=== PATIENT | male | born 1985 | race Caucasian/White ===

== ENCOUNTER 2017-10-24 09:36 | Emergency (ER) | payer MEDICARE, MEDICAID ==
[~2017-10-24] VITALS: Ht 175.3 cm; Wt 64.4 kg
[~2017-10-24 09:36] MED LIST: ACHD5005 PO; AGM875T PO; CYCL10TA9 PO; DESV50TA; DIPH1TAB; DOXY-13 PO; DOXY150T9 PO; HYDR1CAP2 PO; HYDR1TAB PO; HYOS0.1217 PO; IBP600T1 PO; INSHRV; INSR1U SC; INSU100V8 SQ; LEVE1U SQ; LEVO750T24 GT; NAPR-243 PO; OLN10T; PROM25SU10 PR; PROM6.25; SULF1TAB38 PO
[2017-10-24] MEDS ORDERED: IBUPROFEN 800 MG (MOTRIN) TAB PO STA (09:41)
--- OUTSIDE RECORDS SUMMARY | 2017-10-24 09:42 | XMS REPORT | Continuity of Care Document ---
Author Author [facility] Address Unknown Phone Unavailable Allergies Active Description Code Type Severity Reaction Onset Reported/Identified Relationship to Patient Clinical Status Yes STEROID STEROID Unknown 'CHEST FELT TIG 11/28/2014 Medications There is no data. Problems Date Dx Coded Attending Type Code Diagnosis Diagnosed By 11/28/2007 SHALOM DC APRN R 250.03 DIABETES 1 UNCONTROLLED 11/28/2007 SHALOM DC APRN R 844.9 SPRAIN/STRAIN KNEE/LEG 01/10/2008 SHALOM DC APRN R 250.02 DIABETES II UNCONTROLLED 04/09/2008 SHALOM DC APRN R 785.6 LYMPH NODES ENLARGEMENT 05/06/2008 SHALOM DC APRN R 462 PHARYNGITIS ACUTE 05/06/2008 SHALOM DC APRN R 786.2 COUGH 07/15/2008 HALEIGH DC APRNIA R 296.99 OTHER SPECIFIED EPISODIC MOOD DISORDER 10/26/2008 SHALOM DC APRN R 784.0 headache 10/27/2008 HALEIGH DC APRNIA R 296.33 MO DEPRESSIVE RECURRENT SEVERE W/O PSYCHOTIC BEHAVIOR 12/08/2008 SHALOM DC APRN R V58.69 MEDICATION HIGH RISK 01/12/2009 HALEIGH DC APRNIA R 296.90 MO MOOD DIS NOS 01/28/2009 HALEIGH DC APRNIA R 296.30 MO DEPRESSIVE RECURRENT UNSPECIFIED 03/17/2009 SHALOM DC APRN R 607.84 IMPOTENCE OF ORGANIC ORIGIN 01/14/2010 SHALOM DC APRN R 692.6 CONTACT DERMATITIS AND OTHER ECZEMA, DUE TO PLANTS [EXCEPT FOOD] 01/18/2010 Ot 923.3 01/18/2010 Ot 959.5 01/18/2010 Ot E000.8 01/18/2010 Ot E824.9 01/18/2010 Ot E849.0 02/23/2010 SHALOM DC APRN R V70.0 GENERAL MEDICAL EXAM, ROUTINE, AT [facility] 06/16/2010 Ot 724.2 06/16/2010 Ot 784.0 02/25/2011 Ot 682.3 03/03/2011 Ot 682.3 03/03/2011 Ot 709.9 04/07/2011 Ot 250.01 04/07/2011 Ot 682.2 04/07/2011 Ot 709.9 04/04/2012 Ot 250.13 04/04/2012 Ot V15.81 04/04/2012 Ot V58.66 04/04/2012 Ot V58.67 10/08/2012 DARRELL GUZMAN MD Ot 682.4 10/08/2012 DARRELL GUZMAN MD Ot 882.1 10/08/2012 DARRELL GUZMAN MD Ot E000.8 10/08/2012 DARRELL GUZMAN MD Ot E849.8 10/08/2012 DARRELL GUZMAN MD Ot E888.0 10/08/2012 DARRELL GUZMAN MD Ot E920.8 10/14/2012 GELLENDER DO, DIONNE Palacios Ot 250.00 10/14/2012 GELLENDER DO, DIONNE Palacios Ot 682.4 10/14/2012 GELLENDER DO, DIONNE Palacios Ot 908.9 10/14/2012 GELLENDER DO, DIONNE Palacios Ot E929.8 11/30/2014 GELLENDER DO, DIONNE Palacios Ot 250.13 11/30/2014 GELLENDER DO, DIONNE Palacios Ot 530.81 11/30/2014 GELLENDER DO, DIONNE Palacios Ot 584.9 11/30/2014 GELLENDER DO, DIONNE Palacios Ot V15.81 11/30/2014 GELLENDER DO, DIONNE Palacios Ot V58.67 02/05/2016 DARRELL GUZMAN MD Ot 682.4 CELLULITIS OF HAND 02/05/2016 DARRELL GUZMAN MD Ot 882.1 OPN WOUND HAND-COMPLICAT 02/05/2016 DARRELL GUZMAN MD Ot E000.8 OTHER EXTERNAL CAUSE STATUS 02/05/2016 DARRELL GUZMAN MD Ot E849.[address] NEC 02/05/2016 DARRELL GUZMAN MD Ot E888.0 FALL STRIKING SHARP OBJECT 02/05/2016 DARRELL GUZMAN MD Ot E920.8 ACC-CUTTING INSTRUM NEC 07/05/2016 ADRRELL GUZMAN MD Ot 682.4 CELLULITIS OF HAND 07/05/2016 DARRELL GUZMAN MD Ot 882.1 OPN WOUND HAND-COMPLICAT 07/05/2016 DARRELL GUZMAN MD Ot E000.8 OTHER EXTERNAL CAUSE STATUS 07/05/2016 DARRELL GUZMAN MD Ot E849.[address] NEC 07/05/2016 DARRELL GUZMAN MD Ot E888.0 FALL STRIKING SHARP OBJECT 07/05/2016 DARRELL GUZMAN MD Ot E920.8 ACC-CUTTING INSTRUM NEC 09/04/2016 DARRELL GUZMAN MD Ot 682.4 CELLULITIS OF HAND 09/04/2016 DARRELL GUZMAN MD Ot 882.1 OPN WOUND HAND-COMPLICAT 09/04/2016 DARRELL GUZMAN MD Ot E000.8 OTHER EXTERNAL CAUSE STATUS 09/04/2016 DARRELL GUZMAN MD Ot E849.[address] NEC 09/04/2016 DARRELL GUZMAN MD Ot E888.0 FALL STRIKING SHARP OBJECT 09/04/2016 DARRELL GUZMAN MD Ot E920.8 ACC-CUTTING INSTRUM NEC 10/05/2016 DARRELL GUZMAN MD Ot 682.4 CELLULITIS OF HAND 10/05/2016 DARRELL GUZMAN MD Ot 882.1 OPN WOUND HAND-COMPLICAT 10/05/2016 DARRELL GUZMAN MD Ot E000.8 OTHER EXTERNAL CAUSE STATUS 10/05/2016 DARRELL GUZMAN MD Ot E849.[address] NEC 10/05/2016 DARRELL GUZMAN MD Ot E888.0 FALL STRIKING SHARP OBJECT 10/05/2016 DARRELL GUZMAN MD Ot E920.8 ACC-CUTTING INSTRUM NEC Procedures Code [place] [address] A1C 06/04/2008 Results There is no data. Encounters ACCT No. Visit Date/Time Discharge Status Pt. Type Provider Facility Loc./Unit Complaint [id number] 12/04/2012 12:09:00 12/04/2012 23:59:59 CLS Outpatient SHALOM DC APRN [id number] 11/28/2014 23:33:00 11/30/2014 15:47:00 DIS Inpatient MITZY ELLIS DIONNE Palacios [facility] SURGICAL [id number] 10/11/2012 15:10:00 10/14/2012 11:35:00 DIS Inpatient MITZY ELLIS DIONNE Philip [facility] SURGICAL [id number] 10/08/2012 08:52:00 10/08/2012 09:45:00 DIS Outpatient DARRELL GUZMAN MD [facility] ER LEFT HAND INJURY [id number] 04/03/2012 22:00:00 Document Registration [id number] 04/07/2011 10:26:00 Document Registration [id number] 03/03/2011 17:41:00 Document Registration [id number] 02/25/2011 21:55:00 Document Registration [id number] 06/16/2010 16:56:00 Document Registration [id number] 01/18/2010 16:21:00 Document Registration [email or web address] 11/29/2014 02:19:39 ACT Document Registration
--- OUTSIDE RECORDS SUMMARY | 2017-10-24 09:42 | XMS REPORT | Clinical Summary ---
Author Author [facility] Organization [facility] Address Unknown Phone Unavailable Care Team Providers Care Incoming Freight Clerk Name Role Phone PCP Unavailable Source Comments Some departments are not documenting in the electronic medical record. If you do not see the information that you expected, contact Release of Information in the Health Information Management department at [phone] for further assistance in locating additional records.[facility] Allergies Not on File Current Medications Not on file Active Problems Not on file Encounters Date Type Specialty Care Team Description 07/26/2017 Pharmacy Visit from Last 3 Months Social History Tobacco Use Types Packs/Day Years Used Date Never Assessed Sex Assigned at Date Recorded Not on file Last Filed Vital Signs Not on file Plan of Treatment Health Maintenance Due Date Last Done Comments PHYSICAL (COMPREHENSIVE) 08/04/1991 EXAM PERTUSSIS VACCINE 08/04/1995 HIV SCREENING 08/04/1999 TETANUS VACCINE 2001 INFLUENZA VACCINE 02/04/2018 Results Not on filefrom Last 3 Months
--- OUTSIDE RECORDS SUMMARY | 2017-10-24 09:42 | XMS REPORT | Encounter Summary ---
Author Author [facility] Organization [facility] Address Unknown Phone Unavailable Care Team Providers Care Manager Of Creative Services Name Role Phone PCP Unavailable Encounter Details Date Type Department Care Team Description 07/26/2017 Pharmacy Visit [facility] [address] [place] [address] Social History Tobacco Use Types Packs/Day Years Used Date Never Assessed Sex Assigned at Date Recorded Not on file as of this encounter Plan of Treatment Not on fileas of this encounter Visit Diagnoses Not on filein this encounter
--- NOTE | 2017-10-24 09:57 | ED General ---
General Chief Complaint: Glucose Problems Stated Complaint: HYPOGLYCEMIA Source of Information: Patient Exam Limitations: No Limitations History of Present Illness Date Seen by Provider: Oct 24, 2017 Time Seen by Provider: 09:40 Initial Comments Here by EMS with report of hypoglycemia. He was unresponsive this morning and EMS was called. They found his initial blood sugar to be too low to read. They did establish IV access and gave 1 amp of D50. He's steadily improved since and currently has no complaints except for a mild headache. Reports taking his Lantus and insulin as directed. He ate late last night and then previous Lantus. He did not have any snacks afterwards and went to bed. Does not usually have blood sugar problems that are low in fact usually runs quite high. Overall doing better now. Timing/Duration: 1-3 Hours Severity: Moderate Associated Systoms: No Chest Pain, No Cough, No Fever/Chills, No Nausea/ Vomiting, No Shortness of Air, No Weakness Allergies and Home Medications Allergies Uncoded Allergies: STEROID (Adverse Reaction, Unknown, 'CHEST FELT TIGHT', 11/28/14) Home Medications Insulin Determir 1 Unit/0.01 Ml Soln, 30 UNIT SQ HS Prescribed by: SCOTT CISNEROS on 11/30/14 142 Insulin Human Regular 1 Unit/0.01 Ml Soln, 0 UNIT SC ACHS Prescribed by: SCOTT CISNEROS on 11/30/14 142 Patient Home Medication List Home Medication List Reviewed: Yes Review of Systems Constitutional: see HPI; No chills, No fever EENTM: no symptoms reported Respiratory: no symptoms reported Cardiovascular: no symptoms reported Gastrointestinal: No abdominal pain, No nausea, No vomiting Genitourinary: no symptoms reported Psychiatric/Neurological: See HPI, Headache All Other Systems Reviewed Negative Unless Noted: Yes Past Jdqanaj-Cgxlqw-Gzijxh Hx Past Med/Social Hx: Reviewed Nursing Past Med/Soc Hx Patient Social History Alcohol Use: Occasionally Uses Alcohol Beverage of Choice: Beer Recreational Drug Use: No 2nd Hand Smoke Exposure: No Immunizations Up To Date Date of Influenza Vaccine: Jan 06, 2012 Past Medical History Surgeries: Yes Orthopedic Neurological: No Reproductive Disorders: No Gastrointestinal: No Endocrine: Yes Diabetes, Insulin dep Adverse Reaction/Blood Tranf: No Family Medical History Reviewed Nursing Family Hx No Pertinent Family Hx Physical Exam Vital Signs Capillary Refill : General Appearance: No Apparent Distress, WD/WN HEENT: PERRL/EOMI, Pharynx Normal Neck: Non Tender, Supple Respiratory: Lungs Clear, Normal Breath Sounds Cardiovascular: Regular Rate, Rhythm, No Murmur Gastrointestinal: Non Tender, Soft Back: Normal Inspection, No CVA Tenderness, No Vertebral Tenderness Extremity: Normal Range of Motion, Non Tender Neurologic/Psychiatric: Alert, Oriented x3 Skin: Normal Color, Warm/Dry Progress/Results/Core Measures Suspected Sepsis SIRS Temperature: Pulse: Respiratory Rate: Blood Pressure / Mean: Results/Orders My Orders Orders - DARRELL GUZMAN MD Ibuprofen Tablet (Motrin Tablet) (10/24/17 09:41) General/Regular (10/24/17 Breakfast) Vital Signs/I&O Capillary Refill : Progress Note : Progress Note Seen and evaluated. Regular diet ordered. Ibuprofen 800 mg by mouth given. Blood sugar 153 here. Monitor patient. 1025: Patient noted much better and has finished full breakfast and 2 juices. We will recheck blood sugar. If stable, patient will be discharged home. 1045: Blood sugar 149. Discharge home with return precautions. Patient verbalize understanding instructions and agreement with plan. Departure Impression Primary Impression: Hypoglycemia associated with diabetes Disposition: 01 HOME, SELF-CARE Condition: Improved Departure-Patient Inst. Decision time for Depature: 10:28 Referrals: DIONNE FORRESTER DO (PCP/Family) Primary Care Physician Patient Instructions: HYPOGLYCEMIA Add. Discharge Instructions: All discharge instructions reviewed with patient and/or family. Voiced understanding. Take medications as previously prescribed. Eating normal diet. Return for worse pain, fever, vomiting, weakness, breathing problems or other concerns as needed. You should monitor your blood sugar several times today and then as previously prescribed. DARRELL GUZMAN MD Oct 24, 2017 09:57
[2017-10-24 10:51] VITALS: BP 134/104
== END 2017-10-24 10:51 | disposition home or self-care (01) ==
LOC: EDUNIT# 09:36 → ER 09:38
DX: E11.649 Type 2 diabetes mellitus with hypoglycemia without coma (principal); Z88.8 Allergy status to other drugs, medicaments and biological substances; Z98.890 Other specified postprocedural states
CPT/HCPCS: 82962; 99283

== ENCOUNTER 2018-01-22 09:53 | Emergency (ER) | payer MEDICARE, MEDICAID ==
[~2018-01-22] VITALS: Ht 175.3 cm; Wt 68.0 kg
--- NOTE | 2018-01-22 11:06 | ED Upper Extremity ---
General Chief Complaint: Upper Extremity Stated Complaint: R HAND SWELLING Nursing Triage Note: ARRIVED VIA AMB TO TRIAGE. COMPLAINS OF RIGHT HAND PAIN/SWELLING AFTER PUNCHING A TRUCK LAST NIGHT. Nursing Sepsis Screen: No Definite Risk Source: patient Exam Limitations: no limitations History of Present Illness Date Seen by Provider: Jan 22, 2018 Time Seen by Provider: 11:00 Initial Comments The patient is a 32-year-old male who presents to the emergency room with complaints of right hand, right wrist, pain and swelling after punching a truck last night around 1999. He does have abrasions to his third and fourth knuckles and ecchymosis to the dorsal surface of the right hand. Onset: other (last night) Pain/Injury Location: right wrist, right hand Method of Injury: direct blow (punched a truck door) Allergies and Home Medications Allergies Uncoded Allergies: STEROID (Adverse Reaction, Unknown, 'CHEST FELT TIGHT', 11/28/14) Home Medications Hydrocodone Bit/Acetaminophen 1 Tab Tab, 1-2 EACH PO Q6H PRN for PAIN-MODERATE Prescribed by: SUKHWINDER VEE on 01/22/18 1213 Patient Home Medication List Home Medication List Reviewed: Yes Review of Systems Constitutional: see HPI; No chills, No fever Musculoskeletal: see HPI, joint pain All Other Systems Reviewed Negative Unless Noted: Yes Past Gaxysoh-Ryhomv-Mmqspw Hx Past Med/Social Hx: Reviewed Nursing Past Med/Soc Hx Patient Social History Alcohol Use: Denies Use Alcohol Beverage of Choice: Beer Recreational Drug Use: No 2nd Hand Smoke Exposure: No Recent Foreign Travel: No Contact w/Someone Who Travel: No Recent Infectious Disease Expo: No Recent Hopitalizations: Yes Immunizations Up To Date Tetanus Booster (TDap): Less than 5yrs Date of Influenza Vaccine: Jan 06, 2012 Past Medical History Surgeries: Yes Orthopedic Respiratory: No Cardiac: No Neurological: No Reproductive Disorders: No Gastrointestinal: No Musculoskeletal: No Endocrine: Yes Diabetes, Insulin dep Cancer: No Psychosocial: No Integumentary: No Blood Disorders: No Adverse Reaction/Blood Tranf: No Family Medical History Reviewed Nursing Family Hx No Pertinent Family Hx Physical Exam Vital Signs Vital Signs - First Documented 01/22/18 10:09 Temp 98.0 Pulse 104 Resp 16 B/P (MAP) 169/105 (126) Pulse Ox 98 O2 Delivery Room Air Capillary Refill : Less Than 3 Seconds Height, Weight, BMI Height: 5'9.00" Weight: 150lbs. 0.0oz. [id number]; 20.67 BMI Method:Stated General Appearance: WD/WN, no apparent distress Cardiovascular: normal peripheral pulses, regular rate, rhythm, no edema, no gallop, no JVD, no murmur Respiratory: chest non-tender, lungs clear, normal breath sounds, no respiratory distress, no accessory muscle use Wrist: Yes normal inspection, Yes soft tissue tenderness (right wrist) Hand: Right, ecchymosis (to dorsal surface. ), soft tissue tenderness, swelling Neurologic/Tendon: normal sensation, normal motor functions, normal tendon functions, responds to pain, no evidence tendon injury Neurologic/Psychiatric: alert, normal mood/affect, oriented x 3 Skin: normal color, warm/dry Procedures/Interventions Splinting and Joint Reduction : Hand-Made Type: fiberglass (ulnar guttar) Splint Application: Short Arm Progress/Results/Core Measures Results/Orders My Orders Orders - SUKHWINDER VEE Hand, Right, 3 Views (01/22/18 10:54) Wrist, Right, 3 Views Or More (01/22/18 10:59) Hydrocodone/Apap 7.5/325 Tab (Lortab 7. (01/22/18 12:00) Medications Given in ED Vital Signs/I&O Blood Pressure Mean: 126 Progress Progress Note : Time: 11:47 Progress Note Spoke to Dr. Robb at this time. He recommends placing the patient an ulnar gutter splint and having him follow-up in his office within 1 week. I informed the patient of his x-ray findings. He was was placed in above splint. He agrees with plan of care, plans for discharge, return precautions were given. Diagnostic Imaging Diagonstic Imaging: Xray Plain Films/CT/US/NM/MRI: hand, other (wrist) Comments NAME: SUSHMA OZUNA [facility] REC#: [id number] PT STATUS: REG ER : 1985 PHYSICIAN: SUKHWINDER VEE ADMIT DATE: 01/22/18/ER Draft Date of Exam:01/22/18 HAND, RIGHT, 3 VIEWS INDICATION: Right hand pain and swelling. Time of exam: 11:03 AM 3 views of the right hand were obtained. There appear to be fractures involving the base of the fourth and fifth metacarpals. There is volar angulation of the distal fracture fragments. There may be some slight dorsal subluxation of the proximal fourth and fifth metacarpals in relation to the carpus. Carpal bones are intact. Phalanges are intact. No other abnormalities are seen. IMPRESSION: Fractures involving the base of the proximal fourth and fifth metacarpals with questionable dorsal subluxation. There is overlying soft tissue swelling. Dictated on workstation # [id number] Dict: 01/22/18 1126 Trans: 01/22/18 1129 [facility] [id number] Interpreted by: JAYNA MCLEOD MD Electronically signed by: Reviewed: Reviewed by Me Departure Impression Primary Impression: Boxesme fracture Disposition: 01 HOME, SELF-CARE Condition: Stable/Unchanged Departure-Patient Inst. Decision time for Depature: 12:12 Referrals: DIONNE FORRESTER DO (PCP/Family) Primary Care Physician MIRIAM ROBB MD Patient Instructions: Boxer's Fracture (DC) Add. Discharge Instructions: Take medications as directed. Wear the splint at all times. You may use ice to the sore areas at 20 minute intervals. Follow-up with Dr. Robb within 1 week for recheck. Call for an appointment time today. Return back to the emergency room for any numbness, tingling, increased swelling to the extremity or for any worsening symptoms or concerns as needed. Follow-up with Dr. Forrester for recheck in one week. All discharge instructions reviewed with patient and/or family. Voiced understanding. Scripts Hydrocodone Bit/Acetaminophen (Hydrocodone/Acetaminophen 5/325mg Tablet) 1 Tab Tab 1-2 EACH PO Q6H PRN for PAIN-MODERATE MDD 10, #20 TAB Prov: SUKHWINDER VEE 01/22/18 Images Extremities-Upper 1 - Ecchymosis, Swelling, Tenderness SUKHWINDER VEE Jan 22, 2018 11:06
--- NOTE | 2018-01-22 11:30 | Diagnostic Imaging Report ---
INDICATION: Right hand pain and swelling. Time of exam: 11:03 AM 3 views of the right hand were obtained. There appear to be fractures involving the base of the fourth and fifth metacarpals. There is volar angulation of the distal fracture fragments. There may be some slight dorsal subluxation of the proximal fourth and fifth metacarpals in relation to the carpus. Carpal bones are intact. Phalanges are intact. No other abnormalities are seen. IMPRESSION: Fractures involving the base of the proximal fourth and fifth metacarpals with questionable dorsal subluxation. There is overlying soft tissue swelling. Dictated by: Dictated on workstation # [id number]
--- NOTE | 2018-01-22 11:34 | Diagnostic Imaging Report ---
INDICATION: Right wrist pain and injury. TIME OF EXAM: 11:05 AM FINDINGS: Three views of the right wrist were obtained. Fractures of the base of the fourth and fifth metacarpals are again seen. Lateral view does demonstrate some volar angulation of the distal fracture fragments. Alignment at the carpometacarpal joints does raise question of some minimal dorsal subluxation. Alignment of the remaining metacarpals is normal. Carpal bones are intact. Distal radius and ulna are intact. IMPRESSION: Proximal fourth and fifth metacarpal fractures with mild angulation and questionable minimal dorsal subluxation. Dictated by: Dictated on workstation # [id number]
[2018-01-22] MEDS ORDERED: HYDROcodone/APAP 7.5 MG/325 MG (LORTAB, LORCET PLUS) TABLET PO ONE (12:00)
[2018-01-22] MEDS ORDERED: ACHD5005 PO (12:13)
[2018-01-22 12:28] VITALS: BP 130/115
== END 2018-01-22 12:21 | disposition home or self-care (01) ==
LOC: EDUNIT# 09:53 → ER 09:54
DX: S62.314A Displaced fracture of base of fourth metacarpal bone, right hand, initial encounter for closed fracture (principal); S62.316A Displaced fracture of base of fifth metacarpal bone, right hand, initial encounter for closed fracture; E11.9 Type 2 diabetes mellitus without complications; Z88.8 Allergy status to other drugs, medicaments and biological substances; W22.09XA Striking against other stationary object, initial encounter
CPT/HCPCS: 73110; 73130

== ENCOUNTER 2020-03-20 09:48 | Day surgery (SDC) | payer MEDICARE ==
[~2020-03-20] VITALS: Ht 175 cm; Wt 69.8 kg
[2020-03-20] VITALS (8 sets, daily range): BP systolic 124–174; BP diastolic 79–105
[~2020-03-20 09:48] MED LIST changes: +INSU100I10 SC; +INSU100I23 SC; +LISI10TA2 PO
[2020-03-20 10:22] LABS: BILIRUBIN,URINE NEGATIVE (NEGATIVE); CLARITY,URINE CLEAR; GLUCOSE, URINE (UA) NEGATIVE (NEGATIVE); KETONES,URINE NEGATIVE (NEGATIVE); LEUKOCYTE ESTERASE ,URINE NEGATIVE (NEGATIVE); NITRITE,URINE NEGATIVE (NEGATIVE); PROTEIN,URINE 2+ (NEGATIVE)
[2020-03-20] MEDS ORDERED: LACTATED RINGERS 1,000 ML IV ONE (10:43)
[2020-03-20] MEDS ORDERED: ONDANSETRON 4 MG/2 ML (SDV) Z0FRAN IVP ONE (10:45)
[2020-03-20] MEDS ORDERED: fentaNYL INJECTION 100 MCG/2 ML AMP IVP ONE ×2 (10:45→15:30)
[2020-03-20 10:56] LABS: COLOR,URINE YELLOW
[2020-03-20 10:57] LABS: BACTERIA,URINE TRACE /HPF; WBC,URINE RARE /HPF
[2020-03-20 11:06] LABS: BASOPHILS % (AUTO) 0 % (0-10); EOSINOPHILS % (AUTO) 0 % (0-10); HEMATOCRIT 42 % (40-54); HEMOGLOBIN 13.6 g/dL (13.3-17.7); LYMPHOCYTES % (AUTO) 9 % (12-44); MEAN CORPUSCULAR HEMOGLOBIN 30 pg (25-34); MEAN CORPUSCULAR HGB CONC 33 g/dL (32-36); MEAN CORPUSCULAR VOLUME 92 fL (80-99); MONOCYTES # (AUTO) 1.2 10^3/uL (0.0-1.0); MONOCYTES % (AUTO) 11 % (0-12); NEUTROPHILS # (AUTO) 9.2 10^3/uL (1.8-7.8); NEUTROPHILS % (AUTO) 80 % (42-75); PLATELET COUNT 408 10^3/uL (130-400); WHITE BLOOD COUNT 11.5 10^3/uL (4.3-11.0)
[2020-03-20 11:07] LABS: ALBUMIN 3.8 GM/DL (3.2-4.5); POTASSIUM 4.8 MMOL/L (3.6-5.0)
[2020-03-20 11:10] LABS: TOTAL PROTEIN 6.6 GM/DL (6.4-8.2)
[2020-03-20 11:11] LABS: BILIRUBIN,TOTAL 0.8 MG/DL (0.1-1.0)
[2020-03-20 11:13] LABS: CREATININE SERUM 1.41 MG/DL (0.60-1.30)
[2020-03-20] MEDS ORDERED: HOLD METFORMIN - RECEIVED CONTRAST 20 ML VIAL IV SCH (11:30)
[2020-03-20] MEDS ORDERED: IOHEXOL 350 MG/ML 100 ML (OMNIPAQUE 350) VIAL IV ONE (11:30)
[2020-03-20] MEDS ORDERED: NS 100 ML (IVPB) BAG IV ONE (11:30)
--- NOTE | 2020-03-20 12:11 | Diagnostic Imaging Report ---
PROCEDURE: CT abdomen and pelvis with contrast. TECHNIQUE: Multiple contiguous axial images were obtained through the abdomen and pelvis after administration of intravenous contrast. Auto Exposure Controls were utilized during the CT exam to meet ALARA standards for radiation dose reduction. All CT scans use one or more of the following dose optimizing techniques: automated exposure control, MA and/or KvP adjustment based on patient size and exam type or iterative reconstruction. INDICATION: Right lower quadrant pain with vomiting and nausea. COMPARISON STUDY: There are no pertinent exams. FINDINGS: The lung bases are clear. Fatty liver is present. The gallbladder, spleen, pancreas, adrenal glands and kidneys are normal. Urinary bladder and prostate gland are normal. The appendix is thickened. There is some adjacent mild bowel wall thickening. No fluid collections are present. There is no free air. IMPRESSION: Findings are consistent with appendicitis. No fluid collections are present. Dictated by: Dictated on workstation # [id number]
--- NOTE | 2020-03-20 12:41 | ED Abdominal Pain ---
General Chief Complaint: Abdominal/GI Problems Stated Complaint: R SIDE PAIN Nursing Triage Note: PT PRESENTS TO ED VIA POV FOR RIGHT LOWER ABDOMINAL PAIN STARTING AT 0030 THIS AM. Sepsis Screen: Possible Sepsis Risk Source of Information: Patient Exam Limitations: No Limitations History of Present Illness Date Seen by Provider: Mar 20, 2020 Time Seen by Provider: 10:00 Initial Comments This 34-year-old gentleman presents to the emergency room with right lower quadrant pain rather severe in nature that started this morning when he woke up. He has also had nausea and vomiting. He denies fever, chills, shortness of breath, cough, or other symptoms of Covid. He did have some diarrhea as well. He is a type I diabetic who uses a continuous glucose monitoring system and an insulin pump. He drank water this morning but otherwise has not had anything to eat or drink since last night. He is in distress on initial exam. He shows me his blood sugar trends and they have been in the low 100s. Allergies and Home Medications Allergies Uncoded Allergies: STEROID (Adverse Reaction, Unknown, 'CHEST FELT TIGHT', 11/28/14) Home Medications Insulin Glargine,Hum.rec.anlog 100 Unit/1 Ml Insuln.pen, 30 UNITS SC HS, ( Reported) LAST FILLED #15 03-14-19 Insulin Lispro 100 Unit/1 Ml Insuln.pen, 2-15 UNITS SC TIDAC, (Reported) LAST FILLED #15 10-09-19 Lisinopril 10 Mg Tablet, 10 MG PO DAILY, (Reported) Patient Home Medication List Home Medication List Reviewed: Yes Review of Systems Review of Systems Constitutional: no symptoms reported EENTM: No Symptoms Reported Respiratory: No Symptoms Reported Cardiovascular: No Symptoms Reported Gastrointestinal: See HPI Genitourinary: No Symptoms Reported Musculoskeletal: no symptoms reported Skin: no symptoms reported Psychiatric/Neurological: No Symptoms Reported Endocrine: See HPI Hematologic/Lymphatic: No Symptoms Reported Past Lfuknhd-Xicxvq-Lgllpw Hx Patient Social History Alcohol Use: Denies Use Number of Drinks Today: AA Alcohol Beverage of Choice: Beer Recreational Drug Use: No Smoking Status: Never a Smoker Type Used: Smokeless Tobacco 2nd Hand Smoke Exposure: No Recent Foreign Travel: No Contact w/Someone Who Travel: No Recent Infectious Disease Expo: No Recent Hopitalizations: Yes Physical Abuse: No Sexual Abuse: No Mistreated: No Fear: No Immunizations Up To Date Tetanus Booster (TDap): Less than 5yrs Date of Influenza Vaccine: Mar 03, 2019 Past Medical History Surgeries: Yes Orthopedic Respiratory: No Cardiac: Yes Hypertension Neurological: No Reproductive Disorders: No Genitourinary: No Gastrointestinal: No Musculoskeletal: No Endocrine: Yes Diabetes, Insulin dep Cancer: No Psychosocial: No Integumentary: No Blood Disorders: No Adverse Reaction/Blood Tranf: No Family Medical History No Pertinent Family Hx Physical Exam Vital Signs Vital Signs - First Documented 03/20/20 09:58 Temp 35.9 Pulse 103 Resp 18 B/P (MAP) 130/81 (97) Pulse Ox 100 Capillary Refill : Less Than 3 Seconds Height/Weight/BMI Height: 5'9.00" Weight: 150lbs. 0.0oz. [id number]; 22.00 BMI Method:Stated General Appearance: WD/WN, no apparent distress HEENT: PERRL/EOMI, normal ENT inspection Neck: normal inspection Respiratory: lungs clear, normal breath sounds, no respiratory distress Cardiovascular: regular rate, rhythm, no edema, no murmur Gastrointestinal: normal bowel sounds, soft, tenderness (Throughout the right abdomen), other (Tenderness to percussion. 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, no motor/sensory deficits, alert, normal mood/affect, oriented x 3 Skin: normal color, warm/dry Progress/Results/Core Measures Results/Orders Lab Results Laboratory Tests Test 03/20/20 10:07 Range/Units White Blood Count 11.5 H 4.3-11.0 10^3/uL Red Blood Count 4.53 4.30-5.52 10^6/uL Hemoglobin 13.6 13.3-17.7 g/dL Hematocrit 42 40-54 % Mean Corpuscular Volume 92 80-99 fL Mean Corpuscular Hemoglobin 30 25-34 pg Mean Corpuscular Hemoglobin Concent 33 32-36 g/dL Red Cell Distribution Width 12.6 10.0-14.5 % Platelet Count 408 H 130-400 10^3/uL Mean Platelet Volume 10.0 9.0-12.2 fL Immature Granulocyte % (Auto) 0 % Neutrophils (%) (Auto) 80 H 42-75 % Lymphocytes (%) (Auto) 9 L 12-44 % Monocytes (%) (Auto) 11 0-12 % Eosinophils (%) (Auto) 0 0-10 % Basophils (%) (Auto) 0 0-10 % Neutrophils # (Auto) 9.2 H 1.8-7.8 10^3/uL Lymphocytes # (Auto) 1.0 1.0-4.0 10^3/uL Monocytes # (Auto) 1.2 H 0.0-1.0 10^3/uL Eosinophils # (Auto) 0.0 0.0-0.3 10^3/uL Basophils # (Auto) 0.0 0.0-0.1 10^3/uL Immature Granulocyte # (Auto) 0.0 0.0-0.1 10^3/uL Urine Color YELLOW Urine Clarity CLEAR Urine pH 6.0 5-9 Urine Specific [place] 1.010 L 1.016-1.022 Urine Protein 2+ H NEGATIVE Urine Glucose (UA) NEGATIVE NEGATIVE Urine Ketones NEGATIVE NEGATIVE Urine Nitrite NEGATIVE NEGATIVE Urine Bilirubin NEGATIVE NEGATIVE Urine Urobilinogen 0.2 < = 1.0 MG/DL Urine Leukocyte Esterase NEGATIVE NEGATIVE Urine RBC (Auto) 1+ H NEGATIVE Urine RBC NONE /HPF Urine WBC RARE /HPF Urine Crystals 0 /LPF Urine Bacteria TRACE /HPF Urine Casts NONE /LPF Urine Mucus NEGATIVE /LPF Urine Culture Indicated NO Sodium Level 137 135-145 MMOL/L Potassium Level 4.8 3.6-5.0 MMOL/L Chloride Level 101 98-107 MMOL/L Carbon Dioxide Level 24 21-32 MMOL/L Anion Gap 12 5-14 MMOL/L Blood Urea Nitrogen 15 7-18 MG/DL Creatinine 1.41 H 0.60-1.30 MG/DL Estimat Glomerular Filtration Rate 57 BUN/Creatinine Ratio 11 Glucose Level 121 H 70-105 MG/DL Calcium Level 9.0 8.5-10.1 MG/DL Corrected Calcium 9.2 8.5-10.1 MG/DL Total Bilirubin 0.8 0.1-1.0 MG/DL Aspartate Amino Transf (AST/SGOT) 32 5-34 U/L Alanine Aminotransferase (ALT/SGPT) 33 0-55 U/L Alkaline Phosphatase 89 40-136 U/L C-Reactive Protein High Sensitivity 3.74 H 0.00-0.50 MG/DL Total Protein 6.6 6.4-8.2 GM/DL Albumin 3.8 3.2-4.5 GM/DL Lipase 8 8-78 U/L My Orders Orders - BERNARDINO NICHOLE MD Ua Culture If Indicated (03/20/20 10:06) Fentanyl Injection (Sublimaze Injection (03/20/20 10:45) Ondansetron Injection (Zofran Injectio (03/20/20 10:45) Ed Iv/Invasive Line Start (03/20/20 10:43) Lactated Ringers (Lr 1000 Ml Iv Solution (03/20/20 10:43) Cbc With Automated Diff (03/20/20 10:55) Comprehensive Metabolic Panel (03/20/20 10:55) Hs C Reactive Protein (03/20/20 10:55) Lipase (03/20/20 10:55) Ct Abdomen/Pelvis W (03/20/20 11:13) Iohexol Injection (Omnipaque 350 Mg/Ml 1 (03/20/20 11:30) Received Contrast (Hold Metformin- Contr (03/20/20 11:30) Ns (Ivpb) (Sodium Chloride 0.9% Ivpb Bag (03/20/20 11:30) Medications Given in ED Current Medications Medications Dose Ordered Sig/Vasu Route Start Time Stop Time Status Last Admin Dose Admin Fentanyl Citrate 75 mcg ONCE ONCE IVP 03/20/20 10:45 03/20/20 10:46 DC 03/20/20 10:59 75 MCG Iohexol 100 ml ONCE ONCE IV 03/20/20 11:30 03/20/20 11:31 DC 03/20/20 11:33 100 ML Lactated Ringer's 1,000 ml @ 0 mls/hr Q0M ONCE IV 03/20/20 10:43 03/20/20 10:44 DC 03/20/20 10:59 0 MLS/HR Ondansetron HCl 8 mg ONCE ONCE IVP 03/20/20 10:45 03/20/20 10:46 DC 03/20/20 10:59 8 MG Sodium Chloride 100 ml ONCE ONCE IV 03/20/20 11:30 03/20/20 11:31 DC 03/20/20 11:33 80 ML Vital Signs/I&O 03/20/20 09:58 Temp 35.9 Pulse 103 Resp 18 B/P (MAP) 130/81 (97) Pulse Ox 100 Blood Pressure Mean: 97 Progress Progress Note : Time: 12:39 Progress Note Patient was treated with fentanyl, Zofran, and IV fluids with good results. CT of the abdomen was obtained to evaluate for appendicitis. Appendicitis was diagnosed and Dr. Gamble was notified. Diagnostic Imaging Diagonstic Imaging: CT Plain Films/CT/US/NM/MRI: abdomen, pelvis Comments CT abdomen and pelvis viewed by me and report reviewed. See report below: NAME: SUSHMA OZUNA [facility] REC#: [id number] PT STATUS: REG ER : 1985 PHYSICIAN: BERNARDINO NICHOLE MD ADMIT DATE: 03/20/20/ER Signed Date of Exam:03/20/20 CT ABDOMEN/PELVIS W PROCEDURE: CT abdomen and pelvis with contrast. TECHNIQUE: Multiple contiguous axial images were obtained through the abdomen and pelvis after administration of intravenous contrast. Auto Exposure Controls were utilized during the CT exam to meet ALARA standards for radiation dose reduction. All CT scans use one or more of the following dose optimizing techniques: automated exposure control, MA and/or KvP adjustment based on patient size and exam type or iterative reconstruction. INDICATION: Right lower quadrant pain with vomiting and nausea. COMPARISON STUDY: There are no pertinent exams. FINDINGS: The lung bases are clear. Fatty liver is present. The gallbladder, spleen, pancreas, adrenal glands and kidneys are normal. Urinary bladder and prostate gland are normal. The appendix is thickened. There is some adjacent mild bowel wall thickening. No fluid collections are present. There is no free air. IMPRESSION: Findings are consistent with appendicitis. No fluid collections are present. Dictated by: Dictated on workstation # [id number] Dict: 03/20/20 1140 Trans: 03/20/20 1214 [facility] [id number] Interpreted by: GENA VILLALOBOS MD Electronically signed by: GENA VILLALOBOS MD 03/20/20 1214 Departure Communication (Admissions) Time/Spoke to Admitting Phy: 12:30 Dr. Gamble Impression Primary Impression: Acute appendicitis Qualified Codes: K35.30 - Acute appendicitis with localized peritonitis, without perforation or gangrene Additional Impression: Nausea vomiting and diarrhea Disposition: ADMITTED INPATIENT Condition: Improved Admissions Decision to Admit Reason: Admit from ER (General) Decision to Admit/Date: Mar 20, 2020 Time/Decision to Admit Time: 12:46 Departure-Patient Inst. Referrals: DIONNE FORRESTER DO (PCP/Family) Primary Care Physician BERNARDINO NICHOLE MD Mar 20, 2020 12:41
[2020-03-20] MEDS ORDERED: LACTATED RINGERS 1,000 ML IV PRN (12:47)
[2020-03-20] MEDS ORDERED: SEVOFLURANE (ULTANE) 15 ML INHAL SOLN ONE ×6 (13:02→15:16)
[2020-03-20] MEDS ORDERED: proPOfol 200 MG/20 ML (DIPRIVAN) VIAL IV ONE (13:02)
[2020-03-20] MEDS ORDERED: LIDOCAINE PF 2% 5 ML (XYLOCAINE) VIAL ONE (13:02)
[2020-03-20] MEDS ORDERED: SUCCINYLCHOLINE INJ 100 MG/5 ML SYR/VIAL ONE (13:02)
[2020-03-20] MEDS ORDERED: ROCURONIUM 10 MG/ML 5 ML SYRINGE IV ONE (13:02)
[2020-03-20] MEDS ORDERED: MIDAZOLAM 2 MG/2 ML (VERSED) VIAL ONE (13:04)
[2020-03-20] MEDS ORDERED: fentaNYL INJECTION 100 MCG/2 ML AMP ONE ×2 (13:04→13:22)
--- NOTE | 2020-03-20 13:18 | Consultation - Surgery ---
History of Present Illness History of Present Illness Patient Consulted On(john/time) 03/20/20 13:11 Date Seen by Provider: Mar 20, 2020 Time Seen by Provider: 12:42 History of Present Illness Seen and evaluated in ED. Consult requested by Dr. Duffy for appendicitis Patient is a 34 year old male who states he woke up last night with right lower qauadrant abdominal pain. Pain he rates at 12/10 when he first came in. Has received some medications which has made it better some. Movement makes worse. Sharp pains, no radiation. Has had some nausea and vomiting. Slight diarrhea this morning. Had CT scan consistent with actue appendicitis. Denies fever sweats chills shortness of breath or chest pain. Allergies and Home Medications Allergies Uncoded Allergies: STEROID (Adverse Reaction, Unknown, 'CHEST FELT TIGHT', 11/28/14) Home Medications Insulin Glargine,Hum.rec.anlog 100 Unit/1 Ml Insuln.pen, 30 UNITS SC HS, (Reported) LAST FILLED #15 19 Insulin Lispro 100 Unit/1 Ml Insuln.pen, 2-15 UNITS SC TIDAC, (Reported) LAST FILLED #15 10-09-19 Lisinopril 10 Mg Tablet, 10 MG PO DAILY, (Reported) Patient Home Medication List Home Medication List Reviewed: Yes Past Qgumtmf-Bcunul-Dzgjzh Hx Patient Social History Alcohol Use: Denies Use Number of Drinks Today: AA Recreational Drug Use: No Smoking Status: Never a Smoker Type Used: Smokeless Tobacco 2nd Hand Smoke Exposure: No Recent Foreign Travel: No Contact w/Someone Who Travel: No Recent Infectious Disease Expo: No Recent Hopitalizations: Yes Immunizations Up To Date Tetanus Booster (TDap): Less than 5yrs Date of Influenza Vaccine: Mar 03, 2019 Surgeries History of Surgeries: Yes Surgeries: Orthopedic Respiratory History of Respiratory Disorde: No Cardiovascular History of Cardiac Disorders: Yes Cardiac Disorders: Hypertension Neurological History of Neurological Disord: No Reproductive System Hx Reproductive Disorders: No Genitourinary History of Genitourinary Disor: No Gastrointestinal History of Gastrointestinal Di: No Musculoskeletal History of Musculoskeletal Dis: No Endocrine History of Endocrine Disorders: Yes Endocrine Disorders: Diabetes, Insulin dep Cancer History of Cancer: No Psychosocial History of Psychiatric Problem: No Integumentary History of Skin or Integumenta: No Blood Transfusions History of Blood Disorders: No Adverse Reaction to a Blood Tr: No Reviewed Nursing Assessment Reviewed/Agree w Nursing PMH: Yes Family Medical History Significant Family History: No Pertinent Family Hx Review of Systems-General Constitutional: No chills, No diaphoresis EENTM: No blurred vision, No double vision Respiratory: No cough, No dyspnea on exertion, No short of breath Cardiovascular: No chest pain, No edema Gastrointestinal: RLQ, abdominal pain (RLQ), diarrhea, nausea, vomiting Genitourinary: No decreased output, No discharge Musculoskeletal: No back pain, No joint pain Skin: No change in color, No change in hair/nails Psychiatric/Neurological: Denies Anxiety, Denies Depressed, Denies Emotional Problems All Other Systems Reviewed Negative Unless Noted: Yes (Negative excepted noted.) Physical Exam-General Problems Physical Exam Vital Signs Vital Signs - First Documented 03/20/20 09:58 Temp 35.9 Pulse 103 Resp 18 B/P (MAP) 130/81 (97) Pulse Ox 100 Capillary Refill : Less Than 3 Seconds General Appearance: WD/WN, mild distress HEENT: PERRL/EOMI, normal ENT inspection Neck: non-tender, full range of motion, supple, normal inspection Respiratory: chest non-tender, no respiratory distress, no accessory muscle use Cardiovascular: regular rate, rhythm, no edema Gastrointestinal: soft, tenderness (right lower quadrant) Rectal: deferred Back: no CVA tenderness, no vertebral tenderness 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, no motor/sensory deficits, alert, normal mood/affect, oriented x 3 Skin: normal color, warm/dry Lymphatic: no adenopathy Data Review Labs Laboratory Tests 03/20/20 10:07: White Blood Count 11.5H, Red Blood Count 4.53, Hemoglobin 13.6, Hematocrit 42, Mean Corpuscular Volume 92, Mean Corpuscular Hemoglobin 30, Mean Corpuscular Hemoglobin Concent 33, Red Cell Distribution Width 12.6, Platelet Count 408H, Mean Platelet Volume 10.0, Immature Granulocyte % (Auto) 0, Neutrophils (%) (Auto) 80H, Lymphocytes (%) (Auto) 9L, Monocytes (%) (Auto) 11, Eosinophils (%) (Auto) 0, Basophils (%) (Auto) 0, Neutrophils # (Auto) 9.2H, Lymphocytes # (Auto) 1.0, Monocytes # (Auto) 1.2H, Eosinophils # (Auto) 0.0, Basophils # (Auto) 0.0, Immature Granulocyte # (Auto) 0.0, Urine Color YELLOW, Urine Clarity CLEAR, Urine pH 6.0, Urine Specific [place] 1.010L, Urine Protein 2+H, Urine Glucose (UA) NEGATIVE, Urine Ketones NEGATIVE, Urine Nitrite NEGATIVE, Urine Bilirubin NEGATIVE, Urine Urobilinogen 0.2, Urine Leukocyte Esterase NEGATIVE, Urine RBC (Auto) 1+H, Urine RBC NONE, Urine WBC RARE, Urine Crystals 0, Urine Bacteria TRACE, Urine Casts NONE, Urine Mucus NEGATIVE, Urine Culture Indicated NO, Sodium Level 137, Potassium Level 4.8, Chloride Level 101, Carbon Dioxide Level 24, Anion Gap 12, Blood Urea Nitrogen 15, Creatinine 1.41H, Estimat Glomerular Filtration Rate 57, BUN/Creatinine Ratio 11, Glucose Level 121H, Calcium Level 9.0, Corrected Calcium 9.2, Total Bilirubin 0.8, Aspartate Amino Transf (AST/SGOT) 32, Alanine Aminotransferase (ALT/SGPT) 33, Alkaline Phosphatase 89, C-Reactive Protein High Sensitivity 3.74H, Total Protein 6.6, Albumin 3.8, Lipase 8 Assessment/Plan Assessment/Plan Assessment/Plan right lower quadrant abdominal pain acute appendicitis discussed risks and benefits of laparoscopic appendectomy all other indicated procedures and he wishes to proceed NPO IV hydration Antibiotics preop To OR Reviewed CT scan results and discussed with Patient which he understands. LOLLY LEDESMA DO Mar 20, 2020 13:18
[2020-03-20] MEDS ORDERED: ONDANSETRON 4 MG/2 ML (SDV) Z0FRAN ONE (13:22)
[2020-03-20] MEDS ORDERED: morphine INJ 10 MG/ML 1ML (SYR OR VIAL) ONE (13:23)
[2020-03-20] MEDS ORDERED: LACTATED RINGERS 1,000 ML IV SCH (13:30)
[2020-03-20] MEDS ORDERED: metroNIDAZOLE 500MG/100ML IVPB IV ONE (13:30)
[2020-03-20] MEDS ORDERED: ceFAZolin INJECTION 1,000 MG in WATER (STERILE) FOR INJECTION 10 ML IV ONE (13:30)
[2020-03-20] MEDS ORDERED: LIDOCAINE/EPI 1%-1:200,000 (XYLOCAINE) 30 ML VIAL ONE (14:05)
[2020-03-20] MEDS: LABETALOL HCL 100 MG/20 ML VIAL IV ONE ×2 (14:12→16:12)
--- NOTE | 2020-03-20 14:21 | NUR ---
COPYMAN HERE TO GET PT AT THIS TIME.
[2020-03-20] MEDS ORDERED: NEOSTIGMINE 3 MG/3 ML VIAL ONE (14:57)
[2020-03-20] MEDS ORDERED: GLYCOPYRROLATE 0.2 MG/ML (ROBINUL) 2 ML VIAL ONE (14:57)
[2020-03-20] MEDS ORDERED: ONDANSETRON 4 MG/2 ML (SDV) Z0FRAN IVP PRN (15:30)
[2020-03-20] MEDS ORDERED: morphine INJ 10 MG/ML 1ML (SYR OR VIAL) IVP ONE (15:30)
[2020-03-20] MEDS ORDERED: HYDR-4226 PO (15:34)
[2020-03-20] MEDS ORDERED: DOCU-143 PO (15:34)
--- NOTE | 2020-03-20 15:39 | Discharge Inst-Simple/Standard ---
Discharge Inst-Standard Discharge Medications New, Converted or Re-Newed RX: RX on Chart Patient Instructions/Follow Up Plan of Care/Instructions/FU: 2 weeks Mavis Activity as Tolerated: No Discharge Diet: Regular Diet Other Inst to Patient Follow up Appt: Make appointment for 2 week. Instructions: No lifting greater than 10 pounds. No strenuous activity. May shower in 24 hours, no tub bath or soaking. Use incentive spirometer at home as directed. No Smoking Skin/Wound Care: You have special glue over your incision that will fall off on it's own. Symptoms to Report: Appetite Changes, Extremity Discoloration, Numbness/Tingling, Swelling Increased, Bleeding Excessive, Eyesight Changes, Pain Increased, Urine Color Change, Constipation(Persistent), Fever over 101 degree F, Pain/Pressure in chest, Urinating Difficulty, Cough Up/Vomit Blood, Heart Beat Irreg/Pounding, Pain/Pressure in jaw, Vaginal Bleeding Increase, Cramps in feet or legs, Lightheadedness, Pain/Pressure in shoulder, Diarrhea(Persistent), Memory Changes Suddenly, Questions/Concerns, Weight gain consecutive days, Dizziness/Fainting, Nausea/Vomiting, Shortness of Breath, Weight gain over 2 pounds If questions or concerns contact your physician Or seek help at emergency department. LOLLY LEDESMA DO Mar 20, 2020 15:38
--- NOTE | 2020-03-20 15:41 | Progress Note-Post Operative ---
Post-Operative Progess Note Surgeon (s)/Learning Technologist (s) Surgeon LOLLY LEDESMA DO Learning Technologist: NA Pre-Operative Diagnosis acute appendicitis right lower quadrant abdominal pain Post-Operative Diagnosis same Procedure & Operative Findings Date of Procedure 03/20/20 Procedure Performed/Findings PROCEDURE: Laparoscopic appendectomy. COMPLICATIONS: None. INDICATIONS: The patient is a 34 year old male who has been having right lower quadrant abdominal pain. Patient's exam consistent with appendicitis. I discussed risk and benefits of laparoscopic appendectomy and all indicated procedures with the possibility being a normal appendix. The patient understands the risks and benefits and wishes to proceed. Consent was signed on the chart. DESCRIPTION OF PROCEDURE: The patient was taken to the operating suite, prepped and draped in a sterile fashion. Timeout was performed. Local anesthetic was infiltrated just above the umbilicus and 11-blade scalpel was used to make a skin incision. Cautery was used to dissect down to the fascia and scored. Kochers were used to grasp and elevate it and the abdomen was then entered. A 0 Vicryl was placed in a [id number] fashion for closure at the end of the case. The balloon trocar was inserted into the abdomen and pneumoperitoneum was achieved. Under direct visualization of the laparoscope, a 5 mm trocar was placed in the suprapubic region and a 5 mm trocar was placed in the left lower quadrant. Appendix was located, inflammed and dilated. The base of the appendix was dissected around. Once at the base an Endo-CHRISTIAN 2.5 stapler was then fired across the base of the appendix. The mesoappendix was then divided. It was then placed in an Endobag and removed through the 12 mm trocar site. The abdomen was then irrigated and suctioned. No other pathology noted. The abdomen was then desufflated and the trocars were removed. The 0 Vicryl placed at the beginning of the case was then tied closing the 12 mm fascial defect. The skin was then closed using 4-0 Monocryl in a subcuticular fashion. The abdomen was then washed and dried and Skin Affix was placed over the incisions. The patient tolerated the procedure well without any complications and was taken to the recovery room in stable condition. Anesthesia Type general Estimated Blood Loss Estimated blood loss (mL): minimal Specimens/Packing Specimens Removed appendix LOLLY LEDESMA DO Mar 20, 2020 15:41
[2020-03-20] MEDS ORDERED: MEPERIDINE (DEMEROL) INJ 50 MG/ML IVP ONE (16:00)
[2020-03-20] MEDS ORDERED: LABETALOL HCL 20 MG/4 ML VIAL ONE (16:09)
--- NOTE | 2020-03-20 16:50 | NUR ---
SUSHMA OZUNA admitted to room 419-1, with an admitting diagnosis of post op appendectomy, on from PACU via bed, accompanied by staff.SUHSMA OZUNA introduced to surroundings, call light, bed controls, phone, TV, temperature control, lights, meal times, smoking policy, visitor policy, side rail policy, bathrooms and showers. Patient Rights given to patient in the handbook. SUSHMA OZUNA verbalizes understanding that [facility] is not responsible for the loss or damage to any personal effects or valuables that are kept in the patients posession during their hospitalization. SUSHMA OZUNA verbalizes understanding of Interdisciplinary Patient Education. Patient and/or family were informed about the Rapid Response Team and its purpose.
--- NOTE | 2020-03-20 17:15 | NUR ---
Resting in bed at this time asking when he can go home. Instructed on the need to eat, walk, use the bathroom, and be more alert prior to discharge. Requested chicken broth at this time and stated he would like to ambulate but he is "still trying to wake up". requesting something for pain at this time family member was instructed to fill patient's written prescriptions so that patient would have pain medication for discharge
--- NOTE | 2020-03-20 18:20 | NUR ---
patient was able to tolerate a clear liquid diet, ambulated in hernandez, and urinated. Lap sites still look clean dry and intact, no drainage noted at this time. patient once again verbalized the want to go home. this RN stated if patient's family is able to come get him then he can go home at this point. Mlareli Nj called and stated she could be here in 5 minutes.
== END 2020-03-20 18:30 | disposition home or self-care (01) ==
LOC: EDUNIT# 09:48 → ER 09:49 → SDC 13:01 → 4TH 16:50 → SDC 18:30
PROVIDERS: ATTEND Surgery
DX: K35.30 Acute appendicitis with localized peritonitis, without perforation or gangrene (principal); I10 Essential (primary) hypertension; E11.9 Type 2 diabetes mellitus without complications; Z79.4 Long term (current) use of insulin; Z79.899 Other long term (current) drug therapy; Z88.8 Allergy status to other drugs, medicaments and biological substances; Z20.828 Contact with and (suspected) exposure to other viral communicable diseases
CPT/HCPCS: 44970; 74177; 80053; 81000; 82962; 83690; 85025; 86141; 99285; U0002; 36415; 87635

== ENCOUNTER 2020-12-13 14:54 | Inpatient (IN) | payer MEDICARE ==
[~2020-12-13] VITALS: Ht 170.2 cm; Wt 73.7 kg
[~2020-12-13 14:54] MED LIST changes: +DOCU-143 PO; +HYDR-4226 PO; -LISI10TA2 PO; +LISI10TA25 PO
[2020-12-13] MEDS ORDERED: ONDANSETRON 4 MG/2 ML (SDV) Z0FRAN ONE (15:04)
[2020-12-13 15:09] LABS: BASOPHILS # (AUTO) 0.1 10^3/uL (0.0-0.1); BASOPHILS % (AUTO) 0 % (0-10); EOSINOPHILS # (AUTO) 1.6 10^3/uL (0.0-0.3); EOSINOPHILS % (AUTO) 9 % (0-10); HEMATOCRIT 35 % (40-54); HEMOGLOBIN 10.2 g/dL (13.3-17.7); LYMPHOCYTES # (AUTO) 0.7 10^3/uL (1.0-4.0); LYMPHOCYTES % (AUTO) 4 % (12-44); MEAN CORPUSCULAR HEMOGLOBIN 30 pg (25-34); MEAN CORPUSCULAR HGB CONC 29 g/dL (32-36); MEAN CORPUSCULAR VOLUME 103 fL (80-99); MEAN PLATELET VOLUME 10.8 fL (9.0-12.2); MONOCYTES % (AUTO) 6 % (0-12); NEUTROPHILS # (AUTO) 13.2 10^3/uL (1.8-7.8); NEUTROPHILS % (AUTO) 79 % (42-75); PLATELET COUNT 388 10^3/uL (130-400); WHITE BLOOD COUNT 16.7 10^3/uL (4.3-11.0)
[2020-12-13] MEDS ORDERED: inSUlin (REGULAR) HUMAN 1 UNIT/0.01 ML (CHARGE PER UNIT) IV ONE ×2 (15:15→17:45)
[2020-12-13] MEDS ORDERED: ONDANSETRON 4 MG/2 ML (SDV) Z0FRAN IVP ONE (15:15)
[2020-12-13] MEDS ORDERED: NS IV 1000 ML 1,000 ML IV SCH ×4 (15:15→22:00)
[2020-12-13 15:20] LABS: CHLORIDE 82 MMOL/L (98-107); INR 1.1 (0.8-1.4); PROTHROMBIN TIME PATIENT 14.5 SEC (12.2-14.7)
[2020-12-13 15:21] LABS: CALCIUM 8.8 MG/DL (8.5-10.1)
[2020-12-13 15:22] LABS: TOTAL PROTEIN 6.5 GM/DL (6.4-8.2)
[2020-12-13 15:24] LABS: BILIRUBIN,TOTAL 0.4 MG/DL (0.1-1.0)
[2020-12-13 15:26] LABS: ALKALINE PHOSPHATASE 158 U/L (40-136); CREATININE SERUM 4.72 MG/DL (0.60-1.30); GFR ESTIMATED 14
[2020-12-13 15:27] LABS: BUN/CREATININE RATIO 11
[2020-12-13 15:29] LABS: ALANINE AMINOTRANSFERASE 33 U/L (0-55); MAGNESIUM 2.4 MG/DL (1.6-2.4)
[2020-12-13 15:33] LABS: LYMPHOCYTES % (MANUAL) 3 %; MONOCYTES % (MANUAL) 7 %; NEUTROPHILS % (MANUAL) 90 %
[2020-12-13 15:34] LABS: ACANTHOCYTES SLIGHT; BURR CELLS SLIGHT; HYPOCHROMASIA MODERATE
[2020-12-13 15:39] LABS: SODIUM 125 MMOL/L (135-145)
[2020-12-13 15:40] LABS: CARBON DIOXIDE 6 MMOL/L (21-32); POTASSIUM 7.3 MMOL/L (3.6-5.0)
[2020-12-13 15:48] LABS: TSH (THYROID ANALYZER) 1.61 UIU/ML (0.35-4.94)
[2020-12-13] MEDS ORDERED: inSUlin (REGULAR) HUMAN 1 UNIT/0.01 ML (CHARGE PER UNIT) ONE (15:59)
[2020-12-13] MEDS ORDERED: NS IV 1000 ML 1,000 ML ONE (15:59)
[2020-12-13 16:00] LABS: ABG BASE EXCESS -23.4 MMOL/L (-2.5-2.5); ABG OXYGEN SATURATION 97 % (94-100); ABG PCO2 20 MMHG (35-45); ABG PO2 127 MMHG (79-93); ABG TCO2 5.7 MMOL/L (21.0-31.0)
[2020-12-13] MEDS ORDERED: inSUlin (REGULAR) HUMAN 1 UNIT/0.01 ML (CHARGE PER UNIT) SC ONE (16:00)
--- NOTE | 2020-12-13 16:03 | Diagnostic Imaging Report ---
INDICATION: Hyperglycemia. FINDINGS: The lungs are clear. There is no failure, effusion, or pneumothorax. IMPRESSION: Unremarkable frontal chest. Dictated by: Dictated on workstation # [id number]
[2020-12-13 16:10] LABS: ABG PH 7.04 (7.37-7.43)
[2020-12-13 16:11] LABS: ALLENS TEST POS; PATIENT TEMP 37.1; VENTILATOR NO
[2020-12-13 16:32] LABS: GLUCOSE 1181 MG/DL (70-105)
[2020-12-13] MEDS ORDERED: PROMETHAZINE INJ 25 MG/ML (PHENERGAN) AMP IVP ONE (16:45)
[2020-12-13 16:53] LABS: CALCIUM 7.8 MG/DL (8.5-10.1)
[2020-12-13 16:57] LABS: CREATININE SERUM 4.51 MG/DL (0.60-1.30)
[2020-12-13] MEDS ORDERED: SODIUM BICARB 8.4% 50 MEQ/50 ML VIAL IV ONE (18:30)
--- NOTE | 2020-12-13 18:31 | ED General ---
General Chief Complaint: Glucose Problems Stated Complaint: DKA Nursing Triage Note: PT TO RM 5 VIA WC W C/O HIGH BLOOD SUGAR. PT REPORTS HIS TRANSMITTER QUIT WORKING 4 DAYS AGO AND DOES NOT HAVE A GLUCOMETER AT HOME. PT HAS INSULIN PUMP, SELF ADMINISTERED 3 UNITS AT 0430 THIS AM, PT UNSURE OF CONT RATE OF INSULIN FROM PUMP. Source of Information: Patient Exam Limitations: No Limitations History of Present Illness Date Seen by Provider: Dec 13, 2020 Time Seen by Provider: 15:00 Initial Comments This 35-year-old man with type 1 diabetes presents to the emergency room with suspected DKA. He has been vomiting and his blood sugar is reading "high". He has been feeling ill for about 4 days after his glucometer transmitter quit working. He has another one ordered but has not received it yet. He uses an insulin pump and believes his basal rate is 8.1 units/h. He had bolused 3 units of insulin this morning. He has no fever but reports a mild cough today. Allergies and Home Medications Allergies Uncoded Allergies: STEROID (Adverse Reaction, Unknown, 'CHEST FELT TIGHT', 11/28/14) Home Medications Docusate Sodium 100 Mg Capsule, 100 MG PO BID Prescribed by: LOLLY LEDESMA on 03/20/20 1534 Hydrocodone/Acetaminophen 1 Each Tablet, 1 TAB PO Q4-6HR Prescribed by: LOLLY LEDESMA on 03/20/20 1534 Insulin Glargine,Hum.rec.anlog 100 Unit/1 Ml Insuln.pen, 30 UNITS SC HS, (Reported) LAST FILLED #15 03-14-19 Insulin Lispro 100 Unit/1 Ml Insuln.pen, 2-15 UNITS SC TIDAC, (Reported) LAST FILLED #15 19 Lisinopril 10 Mg Tablet, 10 MG PO DAILY, (Reported) Patient Home Medication List Home Medication List Reviewed: Yes Review of Systems Review of Systems Constitutional: weakness EENTM: no symptoms reported Respiratory: see HPI Cardiovascular: no symptoms reported Gastrointestinal: see HPI Genitourinary: no symptoms reported Musculoskeletal: no symptoms reported Skin: no symptoms reported Psychiatric/Neurological: Other (Irritability) Hematologic/Lymphatic: No Symptoms Reported Past Tdlonib-Dolays-Pbjjzw Hx Patient Social History Tobacco Use?: No Smoking Status: Never a Smoker Substance use?: Yes Substance type: Marijuana Alcohol Use?: Yes Alcohol Frequency: Couple times a week Pt feels they are or have been: No Immunizations Up To Date Tetanus Booster (TDap): Less than 5yrs Past Medical History Surgeries: Yes Orthopedic Respiratory: No Currently Using CPAP: No Currently Using BIPAP: No Cardiac: Yes Hypertension Neurological: No Reproductive Disorders: No Genitourinary: No Gastrointestinal: No Musculoskeletal: No Endocrine: Yes Diabetes, Insulin dep Cancer: No Psychosocial: No Integumentary: No Blood Disorders: No Adverse Reaction/Blood Tranf: No Family Medical History No Pertinent Family Hx Physical Exam Vital Signs Vital Signs - First Documented 12/13/20 15:15 Temp 37.1 Pulse 103 Resp 22 B/P (MAP) 116/59 (78) Pulse Ox 98 O2 Delivery Room Air Capillary Refill : Less Than 3 Seconds Height, Weight, BMI Height: 5'9.00" Weight: 150lbs. 0.0oz. [id number]; 26.00 BMI Method:Stated General Appearance: WD/WN, Moderate Distress HEENT: PERRL/EOMI, Normal ENT Inspection, Other (Mucous membranes dry) Neck: Normal Inspection Respiratory: Lungs Clear, Normal Breath Sounds, No Accessory Muscle Use, No Respiratory Distress Cardiovascular: No Edema, Tachycardia Gastrointestinal: Soft, Tenderness (Mild, generalized) Extremity: Normal Inspection, No Pedal Edema Neurologic/Psychiatric: Alert, Oriented x3, No Motor/Sensory Deficits, monotype operator II- XII Norm as Tested, Other (Irritable) Skin: Normal Color, Warm/Dry Progress/Results/Core Measures Suspected Sepsis SIRS Temperature: Pulse: 103 Respiratory Rate: 22 Laboratory Tests 12/13/20 15:05: White Blood Count 16.7H Blood Pressure 116 /59 Mean: 78 Laboratory Tests 12/13/20 15:05: Creatinine 4.72H, INR Comment 1.1, Platelet Count 388, Total Bilirubin 0.4 12/13/20 16:34: Creatinine 4.51H Results/Orders Lab Results Laboratory Tests Test 12/13/20 15:05 12/13/20 15:11 12/13/20 15:45 12/13/20 16:34 Range/Units White Blood Count 16.7 H 4.3-11.0 10^3/uL Red Blood Count 3.39 L 4.30-5.52 10^6/uL Hemoglobin 10.2 L 13.3-17.7 g/dL Hematocrit 35 L 40-54 % Mean Corpuscular Volume 103 H 80-99 fL Mean Corpuscular Hemoglobin 30 25-34 pg Mean Corpuscular Hemoglobin Concent 29 L 32-36 g/dL Red Cell Distribution Width 13.5 10.0-14.5 % Platelet Count 388 130-400 10^3/uL Mean Platelet Volume 10.8 9.0-12.2 fL Immature Granulocyte % (Auto) 1 % Neutrophils (%) (Auto) 79 H 42-75 % Lymphocytes (%) (Auto) 4 L 12-44 % Monocytes (%) (Auto) 6 0-12 % Eosinophils (%) (Auto) 9 0-10 % Basophils (%) (Auto) 0 0-10 % Neutrophils # (Auto) 13.2 H 1.8-7.8 10^3/uL Lymphocytes # (Auto) 0.7 L 1.0-4.0 10^3/uL Monocytes # (Auto) 1.0 0.0-1.0 10^3/uL Eosinophils # (Auto) 1.6 H 0.0-0.3 10^3/uL Basophils # (Auto) 0.1 0.0-0.1 10^3/uL Immature Granulocyte # (Auto) 0.2 H 0.0-0.1 10^3/uL Neutrophils % (Manual) 90 % Lymphocytes % (Manual) 3 % Monocytes % (Manual) 7 % Hypochromasia MODERATE [place] Cells SLIGHT Acanthocytes SLIGHT Prothrombin Time 14.5 12.2-14.7 SEC INR Comment 1.1 0.8-1.4 Activated Partial Thromboplast Time 27 24-35 SEC Sodium Level 125 *L 130 L 135-145 MMOL/L Potassium Level 7.3 #*H 6.0 H 3.6-5.0 MMOL/L Chloride Level 82 L 90 L 98-107 MMOL/L Carbon Dioxide Level 6 *L 6 *L 21-32 MMOL/L Anion Gap 37 H 34 H 5-14 MMOL/L Blood Urea Nitrogen 54 H 54 H 7-18 MG/DL Creatinine 4.72 H 4.51 H 0.60-1.30 MG/DL Estimat Glomerular Filtration Rate 14 15 BUN/Creatinine Ratio 11 12 Glucose Level 1181 *H 901 *H 70-105 MG/DL Calcium Level 8.8 7.8 L 8.5-10.1 MG/DL Corrected Calcium 8.8 8.5-10.1 MG/DL Magnesium Level 2.4 1.6-2.4 MG/DL Total Bilirubin 0.4 0.1-1.0 MG/DL Aspartate Amino Transf (AST/SGOT) 26 5-34 U/L Alanine Aminotransferase (ALT/SGPT) 33 0-55 U/L Alkaline Phosphatase 158 H 40-136 U/L B-Type Natriuretic Peptide 565.5 H <100.0 PG/ML Total Protein 6.5 6.4-8.2 GM/DL Albumin 4.0 3.2-4.5 GM/DL TSH [place] Testing 1.61 0.35-4.94 UIU/ML Serum Alcohol < 10 <10 MG/DL Influenza Type A (RT-PCR) Not Detected Not Detecte Influenza Type B (RT-PCR) Not Detected Not Detecte SARS-CoV-2 RNA (RT-PCR) Not Detected Not Detecte Blood Gas Puncture Site RT RAD Blood Gas Patient Temperature 37.1 Arterial Blood pH 7.04 *L 7.37-7.43 Arterial Blood Partial Pressure CO2 20 L 35-45 MMHG Arterial Blood Partial Pressure O2 127 H 79-93 MMHG Arterial Blood HCO3 5 *L 23-27 MMOL/L Arterial Blood Total CO2 5.7 L 21.0-31.0 MMOL/L Arterial Blood Oxygen Saturation 97 94-100 % Arterial Blood Base Excess -23.4 L -2.5-2.5 MMOL/L [place]ick Test POS Blood Gas Ventilator Setting NO Blood Gas Inspired Oxygen NA My Orders Orders - BERNARDINO NICHOLE MD Ondansetron Injection (Zofran Injectio (12/13/20 15:15) Insulin (Regular) Human (Novolin R (Per (12/13/20 15:15) Covid 19 Inhouse Test (12/13/20 15:11) Influenza A And B By Pcr (12/13/20 15:11) Chest 1 View, Ap/Pa Only (12/13/20 15:11) Ns Iv 1000 Ml (Sodium Chloride 0.9%) (12/13/20 16:00) Insulin (Regular) Human (Novolin R (Per (12/13/20 16:00) Ekg Tracing (12/13/20 15:59) Monitor-Rhythm Ecg Trace Only (12/13/20 15:59) Insulin (Regular) Human (Novolin R (Per (12/13/20 15:59) Ns Iv 1000 Ml (Sodium Chloride 0.9%) (12/13/20 15:59) Basic Metabolic Panel (12/13/20 16:30) Promethazine Injection (Phenergan Injec (12/13/20 16:45) Ns Iv 1000 Ml (Sodium Chloride 0.9%) (12/13/20 17:45) Insulin (Regular) Human (Novolin R (Per (12/13/20 17:45) Sodium Bicarbonate 8.4% Vial (Sodium Bic (12/13/20 18:30) Basic Metabolic Panel (12/13/20 19:00) Basic Metabolic Panel (12/13/20 21:00) Accucheck Stat ONCE (12/13/20 18:32) Accucheck Stat ONCE (12/13/20 18:32) Insulin Regular Drip (Myxredlin 100 Unit (12/13/20 18:45) Medications Given in ED Current Medications Medications Dose Ordered Sig/Vasu Route Start Time Stop Time Status Last Admin Dose Admin Insulin Human Regular 5 unit ONCE ONCE IV 12/13/20 15:15 12/13/20 15:16 DC 12/13/20 15:40 5 UNIT Insulin Human Regular 5 unit ONCE ONCE IV 12/13/20 17:45 12/13/20 17:47 DC 12/13/20 18:03 5 UNIT Insulin Human Regular 5 unit ONCE ONCE SC 12/13/20 16:00 12/13/20 16:02 DC 12/13/20 16:10 5 UNIT Ondansetron HCl 8 mg ONCE ONCE IVP 12/13/20 15:15 12/13/20 15:16 DC 12/13/20 15:41 8 MG Promethazine HCl 12.5 mg ONCE ONCE IVP 12/13/20 16:45 12/13/20 16:46 DC 12/13/20 16:38 12.5 MG Sodium Bicarbonate 50 meq ONCE ONCE IV 12/13/20 18:30 12/13/20 18:31 DC 12/13/20 19:10 50 MEQ Vital Signs/I&O 12/13/20 15:15 Temp 37.1 Pulse 103 Resp 22 B/P (MAP) 116/59 (78) Pulse Ox 98 O2 Delivery Room Air Capillary Refill : Less Than 3 Seconds Blood Pressure Mean: 78 Progress Note #1: Time: 18:38 Progress Note This patient has received 2 L of IV normal saline and two boluses of insulin at 5 units. The third liter of saline and third bolus of insulin 5 units has been ordered. Repeat BMP demonstrates improvement of potassium. He needs admission to an intensive care unit and an insulin drip but transfer does not appear possible right now due to acute shortage of intensive care beds in the region due to the Covid pandemic. Zofran and Phenergan have been given for nausea. Progress Note #2: Time: 20:56 Progress Note Due to tight bed availability in the ICU a prolonged ER stay was anticipated. Insulin drip had been ordered. An ICU bed became available and patient is now being admitted. ECG Initial ECG Impression Date: Dec 13, 2020 Initial ECG Impression Time: 16:07 Initial ECG Rate: 98 Initial ECG Rhythm: Normal Sinus Comment Sinus rhythm with no ST elevation or depression. No abnormal intervals. Possible LVH. T waves are somewhat peaked. Diagnostic Imaging Diagonstic Imaging: Xray Plain Films/CT/US/NM/MRI: chest Comments NAME: SUSHMA OZUNA [facility] REC#: [id number] PT STATUS: REG ER : 1985 PHYSICIAN: BERNARDINO NICHOLE MD ADMIT DATE: 12/13/20/ER Signed Date of Exam:12/13/20 CHEST 1 VIEW, AP/PA ONLY INDICATION: Hyperglycemia. FINDINGS: The lungs are clear. There is no failure, effusion, or pneumothorax. IMPRESSION: Unremarkable frontal chest. Dictated by: Dictated on workstation # [id number] Dict: 12/13/20 1601 Trans: 12/13/20 1652 [id number] Interpreted by: MEENAKSHI CELESTE Electronically signed by: MEENAKSHI CELESTE 12/13/20 1652 Reviewed: Reviewed by Me Departure Communication (Admissions) Time/Spoke to Admitting Phy: 20:35 Dr. Olson Impression Primary Impression: Diabetic ketoacidosis Qualified Codes: E10.10 - Type 1 diabetes mellitus with ketoacidosis without coma Additional Impressions: Acute kidney injury Nausea and vomiting Qualified Codes: R11.2 - Nausea with vomiting, unspecified Hyperkalemia Disposition: 09 ADMITTED INPATIENT Condition: Improved Admissions Decision to Admit Reason: Admit from ER (General) Decision to Admit/Date: Dec 13, 2020 Time/Decision to Admit Time: 15:10 Departure-Patient Inst. Referrals: DIONNE FORRESTER DO (PCP/Family) Primary Care Physician BERNARDINO NICHOLE MD Dec 13, 2020 18:31
[2020-12-13] MEDS ORDERED: POTASSIUM CL 10MEQ/50ML IVPB 50 ML IV ONE (21:36)
[2020-12-13] MEDS ORDERED: D5 1/2 NS 1000 ML IV SOLUTION 1,000 ML IV ONE (21:36)
[2020-12-13] MEDS ORDERED: 1/2 NS IV SOLUTION 1,000 ML IV ONE (21:36)
--- NOTE | 2020-12-13 21:59 | Tele-ICU Consult ---
History of Present Illness History of Present Illness Date Seen by Provider: Dec 13, 2020 Time Seen by Provider: 21:30 Date of Admission Patient had this virtual visit which was conducted using real time audio/video. Thank you for asking us to see this patient for DKA, nausea, vomiting and MICHEL. PMH: DM1 w insulin pump, GERD, htn. SH: smoking history N FH: Non-contributory ROS: limited to HPI PE: VSS 106 ST 145/73 98% HEENT: No obvious masses, adenopathy or JVD. Chest: clear to auscultation. CV: Appears comfortable. RRR S1 S2 No murmur or added sounds. Abd: Non-tender. Bowel sounds . : Unremarkable. Pal N. MANAGER CONTENT/psychiatric: Alert and oriented, grossly intact. No obvious focal findings. Extremities: No edema. Capillary refill < 3 seconds. Skin: unremarkable. Results: Elevated BG initially 901, BUN 54 Creat 4.51, K 6.0 WCC 16.7. Decreased Hb 10.2. AB.04//127 A/P: DKA: Continue insulin, Zofran, IVF, monitor BMP. Available chart/ vitals / labs / Images reviewed. Video assessment done using teleICU camera, rest of exam as per RN. Monitor for worsening renal function. Discussed with RN. Asked RN to reach out to eICU if any questions or concerns later. Time spent with patient/coordination of care with other health professionals (mins): 25 Allergies and Home Medications Allergies Uncoded Allergies: STEROID (Adverse Reaction, Unknown, 'CHEST FELT TIGHT', 11/28/14) Home Medications Docusate Sodium 100 Mg Capsule, 100 MG PO BID Prescribed by: LOLLY LEDESMA on 03/20/20 1534 Hydrocodone/Acetaminophen 1 Each Tablet, 1 TAB PO Q4-6HR Prescribed by: LOLLY LEDESMA on 03/20/20 1534 Insulin Glargine,Hum.rec.anlog 100 Unit/1 Ml Insuln.pen, 30 UNITS SC HS, (Reported) LAST FILLED #15 03-14-19 Insulin Lispro 100 Unit/1 Ml Insuln.pen, 2-15 UNITS SC TIDAC, (Reported) LAST FILLED #15 10-09-18 Lisinopril 10 Mg Tablet, 10 MG PO DAILY, (Reported) Past Medical/Social/Family Hx Patient Social History Tobacco Use?: No Smoking Status: Never a Smoker Substance use?: Yes Substance type: Marijuana Alcohol Use?: Yes Alcohol Frequency: Couple times a week Pt stated abuse/neglect: No Current Status Advance Directives: No Communicates: Verbally Primary Language: Togolese Preferred Spoken Language: Togolese Is interpretation needed?: No Implanted or Applied Medical D: Insulin pump Review of Systems Constitutional: see HPI EENTM: see HPI Respiratory: see HPI Cardiovascular: see HPI Gastrointestinal: see HPI Genitourinary: see HPI Musculoskeletal: see HPI Skin: see HPI Psychiatric/Neurological: See HPI All Other Systems Reviewed Negative Unless Noted: Yes Sepsis Event Evaluation Height, Weight, BMI Height: 5'9.00" Weight: 150lbs. 0.0oz. 68.360103iz; 26.00 BMI Method:Stated Exam Exam Patient acknowledged, consented, and participated in this virtual visit which was conducted using real time audio/video Vital Signs Date Time Temp Pulse Resp B/P (MAP) Pulse Ox O2 Delivery O2 Flow Rate FiO2 12/13/20 21:37 36.9 103 22 152/90 97 Room Air 12/13/20 15:15 37.1 103 22 116/59 (78) 98 Room Air Height & Weight Height: 5'9.00" Weight: 150lbs. 0.0oz. 68.707575ek; 26.00 BMI Method:Stated General Appearance: WD/WN, Moderate Distress HEENT: PERRL/EOMI, Normal ENT Inspection, Other (Mucous membranes dry) Neck: Normal Inspection Respiratory: Lungs Clear, Normal Breath Sounds, No Accessory Muscle Use, No Respiratory Distress Cardiovascular: No Edema, Tachycardia Capillary Refill: Less Than 3 Seconds Extremity: Normal Inspection, No Pedal Edema Neurologic/Psychiatric: Alert, Oriented x3, No Motor/Sensory Deficits, reinforcing steel placer II- XII Norm as Tested, Other (Irritable) Skin: Normal Color, Warm/Dry Results Lab Laboratory Tests 12/13/20 15:05 12/13/20 16:34 Assessment/Plan Assessment/Plan See free text. Critical Care: Critically Ill Patient Time spent on discussion(mins): 0 JOJO TITUS MD Dec 13, 2020 21:59
[2020-12-13] MEDS ORDERED: POTASSIUM CL 10MEQ/50ML IVPB 50 ML IV SCH (22:00)
[2020-12-13] MEDS ORDERED: PROMETHAZINE INJ 25 MG/ML (PHENERGAN) AMP IV PRN (22:00)
[2020-12-13] MEDS ORDERED: ONDANSETRON 4 MG/2 ML (SDV) Z0FRAN IV PRN (22:00)
[2020-12-13 22:05] LABS: CALCIUM 8.2 MG/DL (8.5-10.1); CREATININE SERUM 4.64 MG/DL (0.60-1.30); POTASSIUM 4.4 MMOL/L (3.6-5.0)
[2020-12-13] MEDS: POTASSIUM CL 10MEQ/50ML IVPB 50 ML IV SCH (22:38)
[2020-12-13] MEDS: 1/2 NS IV SOLUTION 1,000 ML IV SCH (22:41)
[2020-12-13] MEDS ORDERED: ACETAMINOPHEN 325 MG TABLET ONE (22:55)
[2020-12-13] MEDS: ACETAMINOPHEN 325 MG TABLET PO PRN (22:56)
[2020-12-13] MEDS ORDERED: LORazepam INJ 2 MG/ML (ATIVAN) VIAL IVP PRN (23:00)
[2020-12-14 01:13] LABS: POTASSIUM 3.9 MMOL/L (3.6-5.0)
[2020-12-14 01:14] LABS: CALCIUM 8.1 MG/DL (8.5-10.1)
[2020-12-14 01:19] LABS: CREATININE SERUM 4.48 MG/DL (0.60-1.30)
[2020-12-14] MEDS: POTASSIUM CL 10MEQ/50ML IVPB 50 ML IV SCH ×7 (01:27→11:04)
[2020-12-14] MEDS: D5 1/2 NS 1000 ML IV SOLUTION 1,000 ML IV SCH ×3 (02:04→09:36)
[2020-12-14] MEDS: 1/2 NS IV SOLUTION 1,000 ML IV SCH ×3 (02:39→09:36)
[2020-12-14 04:13] LABS: BASOPHILS % (AUTO) 0 % (0-10); EOSINOPHILS % (AUTO) 0 % (0-10); HEMATOCRIT 24 % (40-54); HEMOGLOBIN 8.4 g/dL (13.3-17.7); LYMPHOCYTES # (AUTO) 1.8 10^3/uL (1.0-4.0); LYMPHOCYTES % (AUTO) 15 % (12-44); MEAN CORPUSCULAR HEMOGLOBIN 31 pg (25-34); MEAN CORPUSCULAR HGB CONC 35 g/dL (32-36); MEAN CORPUSCULAR VOLUME 88 fL (80-99); MEAN PLATELET VOLUME 10.1 fL (9.0-12.2); MONOCYTES # (AUTO) 1.7 10^3/uL (0.0-1.0); MONOCYTES % (AUTO) 14 % (0-12); NEUTROPHILS # (AUTO) 8.7 10^3/uL (1.8-7.8); NEUTROPHILS % (AUTO) 71 % (42-75); PLATELET COUNT 272 10^3/uL (130-400); WHITE BLOOD COUNT 12.4 10^3/uL (4.3-11.0)
[2020-12-14 04:30] LABS: CALCIUM 7.7 MG/DL (8.5-10.1)
[2020-12-14 04:34] LABS: CREATININE SERUM 4.27 MG/DL (0.60-1.30)
[2020-12-14] MEDS: MAGNESIUM 1 GM/100 ML IVPB 100 ML IV SCH (04:41)
[2020-12-14] MEDS: KCL 20 MEQ TAB (K-DUR) PO SCH (04:41)
[2020-12-14] MEDS ORDERED: CATHETER FLUSH 10 ML SYR IV PRN (07:30)
--- NOTE | 2020-12-14 07:38 | History & Physical-Hospitalist ---
History of Present Illness HPI/Chief Complaint Pt is a 35yoCM with a PMH of IDDMII and diabetic nephropathy who presented to the ER due to high blood sugars. He states his CGM quit working a few days ago and he was not checking his BS. He remaind on his insulin pump though. He states his basal rate is 8.1u/hr. He does not do sliding scale or carb counting with meals he just gives himself 3 units with meals when he eats "something like ramen noodles." He believes his last a1c was 6.1 but is unsure when that was. On arrival he was found to be in DKA. BS was 1181 with a bicarb of 6. He was admitted to the ICU for insulin gtt and further care. He is preoccupied today with being about to discharge home and states he feels better. Source: patient Date Seen 12/14/20 Time Seen by a Provider: 07:33 Attending Physician Aden Olson MD PCP Jimbo Machuca DO Referring Physician Date of Admission Dec 13, 2020 at 20:35 Home Medications & Allergies Home Medications Reviewed patient Home Medication Reconciliation performed by pharmacy medication reconciliations turfgrass technician and/or nursing. Patients Allergies have been reviewed. Allergies Allergies Uncoded Allergies STEROID ( Adverse Reaction, Unknown, 'CHEST FELT TIGHT', 11/28/14) Past Gxrwkji-Hzubtc-Yafvrq Hx Patient Social History Marrital Status: single Tobacco Use?: Yes Smoking Status: Never a Smoker Smokeless type used: Chew Smokeless Tobacco Frequency: Current Everyday User Substance use?: Yes Substance type: Marijuana Substance frequency: Once in a while Alcohol Use?: Yes Alcohol type: Beer Alcohol Frequency: Daily Pt feels they are or have been: No Immunizations Up To Date Date of Influenza Vaccine: Mar 03, 2019 First/Initial COVID19 Vaccinat: Refuses 12/14/20 Current Status Advance Directives: No Communicates: Verbally Primary Language: Irish Preferred Spoken Language: Irish Is interpretation needed?: No Implanted or Applied Medical D: Insulin pump Past Medical History Surgeries: Orthopedic Currently Using CPAP: No Currently Using BIPAP: No Hypertension Renal Failure Diabetes, Insulin dep (Type 1) Blood Disorders: No Adverse Reaction/Blood Tranf: No Family Medical History Reviewed Nursing Family Hx No Pertinent Family Hx Review of Systems Constitutional: No chills, No fever; malaise, weakness EENTM: no symptoms reported Respiratory: no symptoms reported Cardiovascular: no symptoms reported Gastrointestinal: abdominal pain, nausea Genitourinary: no symptoms reported Musculoskeletal: no symptoms reported Skin: no symptoms reported Psychiatric/Neurological: No Symptoms Reported Physical Exam Physical Exam Vital Signs Vital Signs - First Documented 12/13/20 15:15 Temp 37.1 Pulse 103 Resp 22 B/P (MAP) 116/59 (78) Pulse Ox 98 O2 Delivery Room Air Capillary Refill : Less Than 3 Seconds Height, Weight, BMI Height: 5'9.00" Weight: 150lbs. 0.0oz. 68.900480pe; 26.61 BMI Method:Stated General Appearance: No Apparent Distress, WD/WN HEENT: PERRL/EOMI, Moist Mucous Membranes; No Scleral Icterus (L), No Scleral Icterus (R) Neck: Normal Inspection, Supple Respiratory: Lungs Clear, No Accessory Muscle Use, No Respiratory Distress Cardiovascular: Regular Rate, Rhythm, No Murmur Gastrointestinal: Normal Bowel Sounds, Non Tender, Soft Extremity: Normal Capillary Refill, No Calf Tenderness, No Pedal Edema Neurologic/Psychiatric: Alert, Oriented x3, Normal Mood/Affect Skin: Normal Color, Warm/Dry Results Results/Procedures Labs Laboratory Tests 12/13/20 15:05 12/13/20 16:34 12/13/20 21:29 12/14/20 00:55 12/14/20 03:42 12/14/20 03:49 Patient resulted labs reviewed. Imaging: Reviewed Imaging Report Imaging [facility] [place], [place] NAME: SUSHMA OZUNA [facility] REC#: [id number] PT STATUS: REG ER : 1985 PHYSICIAN: BERNARDINO NICHOLE MD ADMIT DATE: 12/13/20/ER Signed Date of Exam:12/13/20 CHEST 1 VIEW, AP/PA ONLY INDICATION: Hyperglycemia. FINDINGS: The lungs are clear. There is no failure, effusion, or pneumothorax. IMPRESSION: Unremarkable frontal chest. Dictated by: Dictated on workstation # [id number] Dict: 12/13/20 1601 Trans: 12/13/20 1652 [id number] Interpreted by: MEENAKSHI CELESTE Electronically signed by: MEENAKSHI CELESTE 12/13/20 6574 Assessment/Plan Admission Diagnosis Severe DKA Admission Status: Inpatient Order (span 2 midnights) Reason for Inpatient Admission: see below Assessment and Plan Severe DKA Poorly controlled IDDMMI Acute on Chronic CKD Hyperkalemia Currently on insulin gtt Gap now closed and bicarb 21 BS 174 on last check Will transition to Levemir- he request switching to Levemir/Novolog upon discharge due to CGM not working and he does not want to go back to the insulin pump until his CGM is in He is unsure if he had a glucometer at home DM and Dietary education ordered Creatinine remains around 4 Monitor UOP hyperkalemia resolved Reports last A1c was 6.1 but last on record here (05/2019) was 13.6 Anemia Hgb 8.4 Acute change from last fall when it was 13 Likely due to CKD will check FOBT and iron panel DVT ppx: Heparin BLANCA KNEYON MD Dec 14, 2020 07:38
[2020-12-14 08:48] LABS: CREATININE SERUM 3.96 MG/DL (0.60-1.30); POTASSIUM 4.1 MMOL/L (3.6-5.0)
[2020-12-14] MEDS ORDERED: PANT40TA52 PO (10:01)
[2020-12-14] MEDS ORDERED: TERB250T16 PO (10:01)
[2020-12-14] MEDS ORDERED: GARL10002 PO (10:01)
[2020-12-14] MEDS ORDERED: INSU100V16 SQ (10:01)
[2020-12-14] MEDS ORDERED: AMLO-251 PO (10:01)
[2020-12-14] MEDS ORDERED: HYDR25TA4 PO (10:01)
[2020-12-14] MEDS ORDERED: ATOR10TA66 PO (10:01)
[2020-12-14] MEDS: inSUlin ASPART (NovoLOG) 1 UNIT/0.01 ML (CHARGE PER UNIT) SC SCH ×3 (11:04→21:23)
[2020-12-14] MEDS ORDERED: NS IV 1000 ML 1,000 ML IV SCH (12:15)
[2020-12-14] MEDS ORDERED: amLODIPine 5 MG (NORVASC) TAB PO NR (14:00)
[2020-12-14] MEDS: NS IV 1000 ML 1,000 ML IV SCH ×2 (14:08→19:27)
[2020-12-14] MEDS: hydrALAZINE (APESOLINE) 20 MG/ML VIAL IV PRN (16:25)
[2020-12-15] MEDS: NS IV 1000 ML 1,000 ML IV SCH ×2 (02:46→11:11)
[2020-12-15 03:10] LABS: BASOPHILS % (AUTO) 0 % (0-10); EOSINOPHILS % (AUTO) 0 % (0-10); HEMATOCRIT 33 % (40-54); HEMOGLOBIN 10.9 g/dL (13.3-17.7); LYMPHOCYTES # (AUTO) 2.2 10^3/uL (1.0-4.0); LYMPHOCYTES % (AUTO) 22 % (12-44); MEAN CORPUSCULAR HEMOGLOBIN 30 pg (25-34); MEAN CORPUSCULAR HGB CONC 33 g/dL (32-36); MEAN CORPUSCULAR VOLUME 89 fL (80-99); MEAN PLATELET VOLUME 9.3 fL (9.0-12.2); MONOCYTES # (AUTO) 0.7 10^3/uL (0.0-1.0); MONOCYTES % (AUTO) 7 % (0-12); NEUTROPHILS % (AUTO) 70 % (42-75); PLATELET COUNT 320 10^3/uL (130-400)
[2020-12-15 03:20] LABS: POTASSIUM 4.1 MMOL/L (3.6-5.0)
[2020-12-15 03:21] LABS: CALCIUM 9.1 MG/DL (8.5-10.1)
[2020-12-15 03:25] LABS: CREATININE SERUM 2.94 MG/DL (0.60-1.30); PHOSPHORUS 3.2 MG/DL (2.3-4.7)
[2020-12-15 03:27] LABS: MAGNESIUM 1.9 MG/DL (1.6-2.4)
[2020-12-15] MEDS: POTASSIUM CL 10MEQ/50ML IVPB 50 ML IV SCH (05:17)
[2020-12-15] MEDS: KCL 20 MEQ TAB (K-DUR) PO SCH (05:17)
[2020-12-15] MEDS: inSUlin ASPART (NovoLOG) 1 UNIT/0.01 ML (CHARGE PER UNIT) SC SCH ×2 (05:17→11:38)
[2020-12-15] MEDS: MAGNESIUM 1 GM/100 ML IVPB 100 ML IV SCH (05:17)
[2020-12-15] MEDS: hydrALAZINE (APESOLINE) 20 MG/ML VIAL IV PRN (05:59)
[2020-12-15] MEDS: ACETAMINOPHEN 325 MG TABLET PO PRN (08:19)
[2020-12-15] MEDS ORDERED: amLODIPine 5 MG (NORVASC) TAB PO SCH (09:00)
[2020-12-15] MEDS ORDERED: INSU100I29 SQ (10:53)
--- NOTE | 2020-12-15 11:03 | Discharge Inst-Simple/Standard ---
Discharge Inst-Standard Patient Instructions/Follow Up Plan of Care/Instructions/FU: Please Please continue to take your medications as written. Please follow up with your primary care doctor to follow up this hospital stay. Please get the COVID vaccine. Activity as Tolerated: Yes Discharge Diet: No Restrictions Return to The Hospital For: Chest pain, shortness of breath, fever, high blood sugars, abdominal pain, confusion, if you feel you are getting worse. BLANCA KENYON MD Dec 15, 2020 11:03
--- NOTE | 2020-12-15 11:08 | Discharge Summary ---
Diagnosis/Chief Complaint Date of Admission Dec 13, 2020 at 20:35 Date of Discharge Discharge Date: Dec 15, 2020 Admission Diagnosis Severe DKA Primary Care Jimbo Machuca DO Discharge Summary Discharge Physical Exam Allergies: Uncoded Allergies: STEROID (Adverse Reaction, Unknown, 'CHEST FELT TIGHT', 11/28/14) Vitals & I&Os Vital Signs Date Time Temp Pulse Resp B/P (MAP) Pulse Ox O2 Delivery O2 Flow Rate FiO2 12/15/20 08:50 Room Air 12/15/20 08:10 36.5 111 20 155/78 (103) 97 Hospital Course Labs (last 24 hrs) Laboratory Tests 12/14/20 13:30: Stool Occult Blood Immunoassay NEGATIVE 12/14/20 15:52: Glucometer 198H 12/14/20 20:45: Glucometer 192H 12/15/20 02:55: White Blood Count 10.0, Red Blood Count 3.67L, Hemoglobin 10.9#L, Hematocrit 33L , Mean Corpuscular Volume 89, Mean Corpuscular Hemoglobin 30, Mean Corpuscular Hemoglobin Concent 33, Red Cell Distribution Width 13.5, Platelet Count 320, Mean Platelet Volume 9.3, Immature Granulocyte % (Auto) 0, Neutrophils (%) (Auto) 70, Lymphocytes (%) (Auto) 22, Monocytes (%) (Auto) 7, Eosinophils (%) (Auto) 0, Basophils (%) (Auto) 0, Neutrophils # (Auto) 7.0, Lymphocytes # (Auto) 2.2, Monocytes # (Auto) 0.7, Eosinophils # (Auto) 0.0, Basophils # (Auto) 0.0, Immature Granulocyte # (Auto) 0.0, Sodium Level 144, Potassium Level 4.1, Chloride Level 108H, Carbon Dioxide Level 21, Anion Gap 15H, Blood Urea Nitrogen 32H, Creatinine 2.94#H, Estimat Glomerular Filtration Rate 24, BUN/Creatinine Ratio 11, Glucose Level 106H, Calcium Level 9.1, Phosphorus Level 3.2, Magnesium Level 1.9, Beta-Hydroxybutyrate (Chem panel) 1.08H 12/15/20 10:59: Glucometer 215H Microbiology 12/13/20 MRSA Screen - Final, Complete MRSA not isolated Patient resulted labs reviewed. Pending Labs Laboratory Tests 12/15/20 10:59: Glucometer 215 Imaging: Reviewed Imaging Report Discharge Home Medications: Active Scripts Active Levemir Flextouch (Insulin Detemir) 100 Unit/1 Ml Insuln.pen 10 Unit SQ BID Reported Garlic 1,000 Mg Capsule 1,000 Mg PO BID Terbinafine HCl 250 Mg Tablet 250 Mg PO DAILY LAST FILLED 09-27-2020 #30/30 DAY SUPPLY Novolog (Insulin Aspart) 100 Unit/1 Ml Susp Unit SQ PER PUMP Hydrochlorothiazide 25 Mg Tablet 25 Mg PO DAILY Atorvastatin Calcium 10 Mg Tablet 10 Mg PO HS Amlodipine Besylate 10 Mg Tablet 5 Mg PO DAILY TAKES OF A 10MG TAB Pantoprazole Sodium 40 Mg Tablet.dr 40 Mg PO DAILY Instructions to patient/family Please see electronic discharge instructions given to patient. BLANCA KENYON MD Dec 15, 2020 11:08
[2020-12-15 11:46] VITALS: BP 155/78
== END 2020-12-15 11:45 | disposition home or self-care (01) | DRG 638 ==
LOC: EDUNIT# 14:54 → ER 14:55 → ICU 20:35 → 4TH 12-15 07:41
PROVIDERS: ADMIT Internal Medicine; ATTEND Internal Medicine
DX: E10.10 Type 1 diabetes mellitus with ketoacidosis without coma (principal); N17.9 Acute kidney failure, unspecified; E87.5 Hyperkalemia; I12.9 Hypertensive chronic kidney disease with stage 1 through stage 4 chronic kidney disease, or unspecified chronic kidney disease; N18.9 Chronic kidney disease, unspecified; D63.1 Anemia in chronic kidney disease; E10.21 Type 1 diabetes mellitus with diabetic nephropathy; K21.9 Gastro-esophageal reflux disease without esophagitis; F17.220 Nicotine dependence, chewing tobacco, uncomplicated; Z79.4 Long term (current) use of insulin; Z96.41 Presence of insulin pump (external) (internal); Z20.822 Contact with and (suspected) exposure to COVID-19
CPT/HCPCS: 36415; 71045; 80048; 80053; 80320; 82010; 82274; 82728; 82805; 82947; 83036; 83540; 83550; 83735; 83880; 84100; 84443; 85007; 85025; 85027; 85610; 85730; 87081; 87636; 93005; 93041; 99291

== ENCOUNTER → 2021-08-24 | Outpatient (CLI) | payer MEDICARE, MEDICAID ==
[~2021-08-24] MED LIST changes: +AMLO-251 PO; +ATOR10TA66 PO; +GARL10002 PO; +HYDR25TA4 PO; +INSU100I29 SQ; +INSU100V16 SQ; +PANT40TA52 PO; +TERB250T88 PO
== END ==
LOC: LAB 09:28
PROVIDERS: ATTEND Family Medicine
DX: R19.7 Diarrhea, unspecified (principal)
CPT/HCPCS: 87324; 87449

== ENCOUNTER → 2021-10-07 | Outpatient (CLI) | payer MEDICARE, MEDICAID ==
--- NOTE | 2021-10-07 15:26 | Diagnostic Imaging Report ---
PROCEDURE: US Renal Bilateral. TECHNIQUE: Multiple real-time grayscale images were obtained over the kidneys in various projections bilaterally. INDICATION: Renal insufficiency. Right kidney measures 10.1 x 3.8 x 4.3 cm and the left kidney measures 10.7 x 6.0 x 5.4 cm. Cortical thickness and echogenicity is normal. No calculi are seen. There is no hydronephrosis. The bladder demonstrates bilateral ureteral jets. IMPRESSION: Unremarkable renal ultrasound. Dictated by: Dictated on workstation # [id number]
== END ==
LOC: RAD 13:00
PROVIDERS: ATTEND Family Medicine
DX: N28.9 Disorder of kidney and ureter, unspecified (principal); I10 Essential (primary) hypertension; E11.9 Type 2 diabetes mellitus without complications
CPT/HCPCS: 76770

== ENCOUNTER 2021-11-28 13:53 | Inpatient (IN) | payer MEDICARE, MEDICAID ==
[~2021-11-28] VITALS: Ht 175.2 cm; Wt 86.7 kg
[2021-11-28] MEDS ORDERED: LACTATED RINGERS 1,000 ML IV STA ×2 (14:06→15:17)
[2021-11-28 14:26] LABS: BASOPHILS # (AUTO) 0.1 10^3/uL (0.0-0.1); BASOPHILS % (AUTO) 1 % (0-10); EOSINOPHILS % (AUTO) 0 % (0-10); HEMATOCRIT 33 % (40-54); HEMOGLOBIN 10.8 g/dL (13.3-17.7); LYMPHOCYTES # (AUTO) 0.5 10^3/uL (1.0-4.0); LYMPHOCYTES % (AUTO) 5 % (12-44); MEAN CORPUSCULAR HEMOGLOBIN 30 pg (25-34); MEAN CORPUSCULAR HGB CONC 33 g/dL (32-36); MEAN CORPUSCULAR VOLUME 92 fL (80-99); MEAN PLATELET VOLUME 10.9 fL (9.0-12.2); MONOCYTES # (AUTO) 0.5 10^3/uL (0.0-1.0); MONOCYTES % (AUTO) 4 % (0-12); NEUTROPHILS # (AUTO) 10.2 10^3/uL (1.8-7.8); NEUTROPHILS % (AUTO) 91 % (42-75); PLATELET COUNT 369 10^3/uL (130-400); WHITE BLOOD COUNT 11.3 10^3/uL (4.3-11.0)
[2021-11-28] MEDS ORDERED: ONDANSETRON 4 MG/2 ML (SDV) Z0FRAN IVP ONE (14:30)
[2021-11-28 14:39] LABS: BILIRUBIN,URINE NEGATIVE (NEGATIVE); CLARITY,URINE CLEAR; COLOR,URINE YELLOW; GLUCOSE, URINE (UA) 3+ (NEGATIVE); KETONES,URINE TRACE (NEGATIVE); LEUKOCYTE ESTERASE ,URINE NEGATIVE (NEGATIVE); NITRITE,URINE NEGATIVE (NEGATIVE); PH,URINE 5.5 (5-9); PROTEIN,URINE 3+ (NEGATIVE)
[2021-11-28 14:46] LABS: ALBUMIN 3.9 GM/DL (3.2-4.5)
--- NOTE | 2021-11-28 14:46 | ED General ---
General Chief Complaint: Glucose Problems Stated Complaint: DKA Nursing Triage Note: PT TO ROOM BY WHEELCHAIR. PT REPORTS HE IS IN DKA, HAS A HX, AND KNOWS WHAT THIS IS. PT REPORTS WAKING UP THIS AM PUKING "STOMACH ACID," DRY HEAVES, HEADACHE, PAIN IN KIDNEYS. PT REPORTS HIS GLUCOMETER READ "HI" AT HOME Source of Information: Patient Exam Limitations: No Limitations History of Present Illness Date Seen by Provider: Nov 28, 2021 Time Seen by Provider: 14:41 Initial Comments Patient is a 36-year-old male who has a history of juvenile diabetes who presents ED for generalized weakness, vomiting, dry mouth decreased urine output. Symptoms started this morning when he woke up. States he vomited 3 times took his blood sugar that read high. Has been taking his insulin. Denies of any bowel movement. Patient reports feeling weak throughout the morning. Reports some generalized abdominal discomfort. Patient states this feels very similar to when he was in DKA. Denies any current chest pain, cough, shortness of breath, headache, dizziness, visual changes. Patient states he has been compliant with his insulin. Allergies and Home Medications Allergies Uncoded Allergies: STEROID (Adverse Reaction, Unknown, 'CHEST FELT TIGHT', 11/28/14) Patient Home Medication List Home Medication List Reviewed: Yes Amlodipine Besylate (Amlodipine Besylate) 10 Mg Tablet, 5 MG PO DAILY, (Reported) Entered as Reported by: VIOLA FALL on 12/14/20 1001 Atorvastatin Calcium (Atorvastatin Calcium) 10 Mg Tablet, 10 MG PO HS, (Reported) Entered as Reported by: VIOLA FALL on 12/14/20 1001 Garlic (Garlic) 1,000 Mg Capsule, 1,000 MG PO BID, (Reported) Entered as Reported by: VIOLA FALL on 12/14/20 1001 Insulin Aspart (Novolog) 100 Unit/1 Ml Susp, UNIT SQ PER PUMP, (Reported) Entered as Reported by: VIOLA FALL on 12/14/20 1001 Insulin Detemir (Levemir Flextouch) 100 Unit/1 Ml Insuln.pen, 10 UNIT SQ BID Prescribed by: BLANCA KENYON on 12/15/20 1053 Pantoprazole Sodium (Pantoprazole Sodium) 40 Mg Tablet.dr, 40 MG PO DAILY, (Reported) Entered as Reported by: VIOLA FALL on 12/14/20 1001 Review of Systems Review of Systems Constitutional: No chills, No diaphoresis, No malaise, No weakness EENTM: No ear pain, No blurred vision, No double vision Respiratory: No cough, No dyspnea on exertion Cardiovascular: No chest pain, No edema Gastrointestinal: No abdominal pain, No diarrhea, No nausea, No vomiting Genitourinary: No decreased output, No discharge Musculoskeletal: No back pain, No joint pain Skin: No change in color, No change in hair/nails All Other Systems Reviewed Negative Unless Noted: Yes Past Pwlmxta-Rwalij-Svxfec Hx Immunizations Up To Date Tetanus Booster (TDap): Less than 5yrs Past Medical History Surgeries: Yes Orthopedic Respiratory: No Currently Using CPAP: No Currently Using BIPAP: No Cardiac: Yes Hypertension Neurological: No Reproductive Disorders: No Genitourinary: No Renal Failure Gastrointestinal: No Musculoskeletal: No Endocrine: Yes Diabetes, Insulin dep Cancer: No Psychosocial: No Integumentary: No Blood Disorders: No Adverse Reaction/Blood Tranf: No Family Medical History No Pertinent Family Hx Physical Exam Vital Signs Vital Signs - First Documented 11/28/21 13:57 Pulse 82 Resp 17 B/P (MAP) 109/57 (74) Pulse Ox 98 Capillary Refill : Height, Weight, BMI Height: 5'9.00" Weight: 150lbs. 0.0oz. 68.356051nf; 25.00 BMI Method:Stated General Appearance: No Apparent Distress, WD/WN Eyes: Bilateral Eye Normal Inspection, Bilateral Eye PERRL, Bilateral Eye EOMI HEENT: PERRL/EOMI, TMs Normal, Normal ENT Inspection, Pharynx Normal Neck: Full Range of Motion, Normal Inspection, Non Tender Respiratory: Chest Non Tender, Lungs Clear, Normal Breath Sounds, No Accessory Muscle Use, No Respiratory Distress Cardiovascular: Regular Rate, Rhythm, No Edema, No Gallop, No JVD Gastrointestinal: Normal Bowel Sounds, No Organomegaly, No Pulsatile Mass, Non Tender Extremity: Normal Capillary Refill, Normal Inspection, Normal Range of Motion, Non Tender, No Calf Tenderness Neurologic/Psychiatric: Alert, Oriented x3, No Motor/Sensory Deficits, Normal Mood/Affect, phytopathology teacher II-XII Norm as Tested Skin: Normal Color, Warm/Dry Focused Exam Lactate Level 11/28/21 14:50: Lactic Acid Level 3.47*H Lactic Acid Level Laboratory Tests Test 11/28/21 14:50 Lactic Acid Level 3.47 MMOL/L (0.50-2.00) *H Progress/Results/Core Measures Suspected Sepsis SIRS Temperature: Pulse: 82 Respiratory Rate: 17 Laboratory Tests 11/28/21 14:15: White Blood Count 11.3H Blood Pressure 109 /57 Mean: 74 11/28/21 14:50: Lactic Acid Level 3.47*H Laboratory Tests 11/28/21 14:15: Creatinine 5.09H, Platelet Count 369, Total Bilirubin 0.7 Results/Orders Lab Results Laboratory Tests Test 11/28/21 14:15 11/28/21 14:19 11/28/21 14:43 11/28/21 14:50 Range/Units White Blood Count 11.3 H 4.3-11.0 10^3/uL Red Blood Count 3.62 L 4.30-5.52 10^6/uL Hemoglobin 10.8 L 13.3-17.7 g/dL Hematocrit 33 L 40-54 % Mean Corpuscular Volume 92 80-99 fL Mean Corpuscular Hemoglobin 30 25-34 pg Mean Corpuscular Hemoglobin Concent 33 32-36 g/dL Red Cell Distribution Width 12.9 10.0-14.5 % Platelet Count 369 130-400 10^3/uL Mean Platelet Volume 10.9 9.0-12.2 fL Immature Granulocyte % (Auto) 0 % Neutrophils (%) (Auto) 91 H 42-75 % Lymphocytes (%) (Auto) 5 L 12-44 % Monocytes (%) (Auto) 4 0-12 % Eosinophils (%) (Auto) 0 0-10 % Basophils (%) (Auto) 1 0-10 % Neutrophils # (Auto) 10.2 H 1.8-7.8 10^3/uL Lymphocytes # (Auto) 0.5 L 1.0-4.0 10^3/uL Monocytes # (Auto) 0.5 0.0-1.0 10^3/uL Eosinophils # (Auto) 0.0 0.0-0.3 10^3/uL Basophils # (Auto) 0.1 0.0-0.1 10^3/uL Immature Granulocyte # (Auto) 0.1 0.0-0.1 10^3/uL Neutrophils % (Manual) 92 % Lymphocytes % (Manual) 5 % Monocytes % (Manual) 3 % Tushar Cells SLIGHT Acanthocytes MODERATE Sodium Level 122 *L 135-145 MMOL/L Potassium Level 7.3 #*H 3.6-5.0 MMOL/L Chloride Level 84 L 98-107 MMOL/L Carbon Dioxide Level 8 *L 21-32 MMOL/L Anion Gap 30 H 5-14 MMOL/L Blood Urea Nitrogen 57 H 7-18 MG/DL Creatinine 5.09 H 0.60-1.30 MG/DL Estimat Glomerular Filtration Rate 14 BUN/Creatinine Ratio 11 Glucose Level 817 *H 70-105 MG/DL Calcium Level 9.0 8.5-10.1 MG/DL Corrected Calcium 9.1 8.5-10.1 MG/DL Total Bilirubin 0.7 0.1-1.0 MG/DL Aspartate Amino Transf (AST/SGOT) 28 5-34 U/L Alanine Aminotransferase (ALT/SGPT) 34 0-55 U/L Alkaline Phosphatase 172 H 40-136 U/L Total Protein 6.5 6.4-8.2 GM/DL Albumin 3.9 3.2-4.5 GM/DL Lipase 20 8-78 U/L Beta-Hydroxybutyrate (Chem panel) 13.10 H 0.00-0.27 MMOL/L Serum Alcohol < 10 <10 MG/DL Urine Color YELLOW Urine Clarity CLEAR Urine pH 5.5 5-[address] 1.025 H 1.016-1.022 Urine Protein 3+ H NEGATIVE Urine Glucose (UA) 3+ H NEGATIVE Urine Ketones TRACE H NEGATIVE Urine Nitrite NEGATIVE NEGATIVE Urine Bilirubin NEGATIVE NEGATIVE Urine Urobilinogen 0.2 < = 1.0 MG/DL Urine Leukocyte Esterase NEGATIVE NEGATIVE Urine RBC (Auto) 1+ H NEGATIVE Urine RBC 0-2 /HPF Urine WBC 0-2 /HPF Urine Squamous Epithelial Cells 0-2 /HPF Urine Crystals NONE /LPF Urine Bacteria FEW H /HPF Urine Casts PRESENT /LPF Urine Hyaline Casts 2-5 H /LPF Urine Mucus NEGATIVE /LPF Urine Culture Indicated YES Bedside Blood Gas pH (LAB) 7.126 *L 7.310-7.410 Bedside Blood Gas pCO2 (LAB) 24.4 L 41.0-51.0 mmHg Bedside Blood Gas pO2 (LAB) 106 H 80-105 mmHg Bedside Blood Gas HCO3 (LAB) 8.0 *L 23.0-28.0 mmol/L POC Blood Gas Total CO2 Calc 9 *L 24-29 mmol/L Bedside Bl Gas O2 Saturation (Calc) 96 95-98 % Bedside Arterial Blood Base Excess -21 L -2-3 mmol/L Lactic Acid Level 3.47 *H 0.50-2.00 MMOL/L My Orders Orders - ALVERTO MARTIN Accucheck Stat ONCE (11/28/21 14:02) Cbc With Automated Diff (11/28/21 14:06) Comprehensive Metabolic Panel (11/28/21 14:06) Lipase (11/28/21 14:06) Beta Hydroxybutyrate (11/28/21 14:06) Urinalysis (11/28/21 14:06) Lactic Acid Analyzer (11/28/21 14:06) Lactated Ringers (Lr 1000 Ml Iv Solution (11/28/21 14:06) Ondansetron Injection (Zofran Injectio (11/28/21 14:30) Manual Differential (11/28/21 14:15) Urine Culture (11/28/21 14:19) Ekg Tracing (11/28/21 15:15) Insulin (Regular) Human (Novolin R (Per (11/28/21 15:15) Sodium Bicarbonate 8.4% Syr (Sodium Bica (11/28/21 15:15) Calc Gluc 1 Gm/100 Ml Ivpb (Calcium Gluc (11/28/21 15:15) Lactated Ringers (Lr 1000 Ml Iv Solution (11/28/21 15:17) Promethazine Injection (Phenergan Injec (11/28/21 15:45) Ed Admission (Communication) (11/28/21 16:11) Medications Given in ED Current Medications Medications Dose Ordered Sig/Vasu Route Start Time Stop Time Status Last Admin Dose Admin Insulin Human Regular 10 unit ONCE ONCE IV 11/28/21 15:15 11/28/21 15:21 DC 11/28/21 15:36 10 UNIT Ondansetron HCl 4 mg ONCE ONCE IVP 11/28/21 14:30 11/28/21 14:31 DC 11/28/21 14:32 4 MG Promethazine HCl 25 mg ONCE ONCE IVP 11/28/21 15:45 11/28/21 15:46 DC 11/28/21 15:59 25 MG Sodium Bicarbonate 50 meq ONCE ONCE IV 11/28/21 15:15 11/28/21 15:20 DC 11/28/21 15:36 50 MEQ Vital Signs/I&O 11/28/21 13:57 Pulse 82 Resp 17 B/P (MAP) 109/57 (74) Pulse Ox 98 Capillary Refill : Blood Pressure Mean: 74 Point of Care Testing Blood Glucose Action Taken: >600 ECG Comment Sinus rhythm with first-degree AV block, 85 bpm, QRS duration 90 MS, QTc 414 MS Departure Communication (Admissions) Time/Spoke to Admitting Phy: 15:33 Communication (PCP) Patient and DKA with acute kidney injury superimposed on chronic kidney disease. Patient has a potassium of 7.3 creatinine of 5.09, sodium 122, chloride 83. Patient was given 2 L of LR here in the ED. Due to the elevated potassium patient was given IV calcium gluconate, 10 units of regular insulin and amp of bicarb. Patient had a bicarb of 8. pH of 7.12 with a lactic acid of over 3. Patient was given IV Zofran and Phenergan for his nausea. Patient without any arrhythmia or significant EKG changes. No current chest pain or shortness of breath. Patient was discussed with Dr. Benjamin who accepts patient to the ICU. Patient was admitted last December for DKA had a creatinine of over 4 with improved after fluids and management of his blood sugar. Dr. Kenyon will be in contact with nephrology Impression Primary Impression: DKA (diabetic ketoacidoses) Additional Impressions: Acute kidney injury superimposed on chronic kidney disease Hyperkalemia Disposition: ADMITTED INPATIENT Condition: Stable Admissions Decision to Admit Reason: Admit from ER (General) Decision to Admit/Date: Nov 28, 2021 Time/Decision to Admit Time: 15:33 Departure-Patient Inst. Decision time for Depature: 15:33 Referrals: DIONNE FORRESTER DO (PCP/Family) Primary Care Physician ALVERTO MARTIN Nov 28, 2021 14:46
[2021-11-28 14:47] LABS: BACTERIA,URINE FEW /HPF; RBC,URINE 0-2 /HPF; SQUAMOUS EPITHELIAL CELL,UR 0-2 /HPF; WBC,URINE 0-2 /HPF
[2021-11-28 14:49] LABS: TOTAL PROTEIN 6.5 GM/DL (6.4-8.2)
[2021-11-28 14:51] LABS: BILIRUBIN,TOTAL 0.7 MG/DL (0.1-1.0)
[2021-11-28 14:59] LABS: ACANTHOCYTES MODERATE; BURR CELLS SLIGHT; LYMPHOCYTES % (MANUAL) 5 %; MONOCYTES % (MANUAL) 3 %; NEUTROPHILS % (MANUAL) 92 %
[2021-11-28 15:00] LABS: CREATININE SERUM 5.09 MG/DL (0.60-1.30)
[2021-11-28 15:10] LABS: POTASSIUM 7.3 MMOL/L (3.6-5.0)
[2021-11-28] MEDS ORDERED: SODIUM BICARB 8.4% 50 MEQ/50 ML (ABBOTT) SYR IV ONE (15:15)
[2021-11-28] MEDS ORDERED: inSUlin (REGULAR) HUMAN 1 UNIT/0.01 ML (CHARGE PER UNIT) IV ONE (15:15)
[2021-11-28] MEDS ORDERED: CALC GLUC 1 GM/100 ML IVPB 100 ML IV STA (15:15)
[2021-11-28] MEDS ORDERED: PROMETHAZINE INJ 25 MG/ML (PHENERGAN) AMP IVP ONE (15:45)
--- NOTE | 2021-11-28 17:00 | History & Physical-Hospitalist ---
History of Present Illness HPI/Chief Complaint Pt is a 36yoCM with a PMH of IDDMI who presented to the ER due to elevated blood sugar. He states that went out drinking last night and now has had vomiting and abdominal pain all day. He cannot remember the last time he checked his blood sugar before today and it just read as high. In the ER he was found to have a blood sugar of over 800 and be in severe DKA and is being admitted for further management. Source: patient Date Seen 11/28/21 Time Seen by a Provider: 16:53 Attending Physician Jimbo Machuca DO PCP Admitting Physician: Blanca Pretty MD Attending Physician: Blanca Pretty MD Referring Physician Date of Admission Nov 28, 2021 at 16:12 Home Medications & Allergies Home Medications Reviewed patient Home Medication Reconciliation performed by pharmacy medication reconciliations mapping technician and/or nursing. Patients Allergies have been reviewed. Allergies Allergies Uncoded Allergies STEROID ( Adverse Reaction, Unknown, 'CHEST FELT TIGHT', 11/28/14) Past Rydhsly-Ezewiz-Icuvrg Hx Patient Social History Smokeless type used: Chew Smokeless Tobacco Frequency: Current Everyday User Substance use?: No Alcohol Use?: Yes Alcohol type: Beer Alcohol Frequency: Couple times a week Immunizations Up To Date Date of Influenza Vaccine: Mar 03, 2019 Current Status Communicates: Verbally Primary Language: [place] Island[place] Preferred Spoken Language: [place] Is interpretation needed?: No Past Medical History Surgeries: Orthopedic Currently Using CPAP: No Currently Using BIPAP: No Hypertension Renal Failure Diabetes, Insulin dep Blood Disorders: No Adverse Reaction/Blood Tranf: No Family Medical History Reviewed Nursing Family Hx No Pertinent Family Hx Review of Systems Constitutional: fever, malaise EENTM: no symptoms reported Respiratory: no symptoms reported Cardiovascular: no symptoms reported Gastrointestinal: abdominal pain, nausea, vomiting Genitourinary: no symptoms reported Musculoskeletal: back pain Skin: no symptoms reported Psychiatric/Neurological: No Symptoms Reported Physical Exam Physical Exam Vital Signs Vital Signs - First Documented 11/28/21 13:57 Pulse 82 Resp 17 B/P (MAP) 109/57 (74) Pulse Ox 98 Capillary Refill : Height, Weight, BMI Height: 5'9.00" Weight: 150lbs. 0.0oz. 68.245389hr; 25.00 BMI Method:Stated General Appearance: No Apparent Distress, WD/WN HEENT: PERRL/EOMI, Moist Mucous Membranes; No Scleral Icterus (L), No Scleral Icterus (R) Neck: Normal Inspection, Supple Respiratory: Lungs Clear, No Accessory Muscle Use, No Respiratory Distress Cardiovascular: No Murmur, Tachycardia Gastrointestinal: Normal Bowel Sounds, Non Tender, Soft Extremity: Normal Capillary Refill, No Calf Tenderness, No Pedal Edema, Other (linear scar on right knee) Neurologic/Psychiatric: Alert, Oriented x3, Normal Mood/Affect Skin: Normal Color, Warm/Dry Results Results/Procedures Labs Laboratory Tests 11/28/21 14:15 Patient resulted labs reviewed. Assessment/Plan Admission Diagnosis DKA Admission Status: Inpatient Order (span 2 midnights) Assessment and Plan Severe DKA IDDMMI Acute on Chronic CKD Hyperkalemia lactic acidosis pH 7.1 on admission BS 817 with Bicarb of 8 Creatinine of 5.09, baseline around 2 Insulin gtt IVF resusciation Received bicarb, calcium, insulin, and IVF in the ER Recheck BMP upon arrival to the ICU Discussed with Dr Georgie Alvarez, nephrology, who recommended continued bicarb gtt Anemia Hgb 10.8, anticipate drop with fluid but near his baseline Likely due to CKD DVT ppx: ambulation Diagnosis/Problems Diagnosis/Problems (1) DKA (diabetic ketoacidoses) Status: Resolved (2) Acute kidney injury superimposed on chronic kidney disease Status: Acute (3) Nausea and vomiting Status: Acute (4) Hyperkalemia Status: Acute BLANCA PRETTY MD Nov 28, 2021 17:00
[2021-11-28] MEDS ORDERED: POTASSIUM CL 10MEQ/50ML IVPB 50 ML IV SCH (17:15)
[2021-11-28] MEDS ORDERED: NS IV 1000 ML 1,000 ML IV SCH (17:15)
[2021-11-28 17:54] LABS: POTASSIUM 5.7 MMOL/L (3.6-5.0)
[2021-11-28 17:55] LABS: CALCIUM 8.7 MG/DL (8.5-10.1)
[2021-11-28 17:59] LABS: CREATININE SERUM 5.03 MG/DL (0.60-1.30)
[2021-11-28 18:03] LABS: HEMATOCRIT 30 % (40-54); HEMOGLOBIN 9.7 g/dL (13.3-17.7); MEAN CORPUSCULAR HEMOGLOBIN 30 pg (25-34); MEAN CORPUSCULAR HGB CONC 33 g/dL (32-36); MEAN CORPUSCULAR VOLUME 91 fL (80-99); MEAN PLATELET VOLUME 10.4 fL (9.0-12.2); PLATELET COUNT 284 10^3/uL (130-400); WHITE BLOOD COUNT 12.1 10^3/uL (4.3-11.0)
[2021-11-28] MEDS: SODIUM BICARBONATE 8.4% VIAL 150 MEQ in WATER FOR INJECTION, STERILE 1,000 ML IV SCH (18:22)
[2021-11-28] MEDS: 1/2 NS IV SOLUTION 1,000 ML IV SCH ×2 (18:22→22:42)
--- NOTE | 2021-11-28 18:54 | Tele-ICU Progress Note ---
Subjective Date Seen by a Provider: Nov 28, 2021 Time Seen by a Provider: 18:54 Subjective/Events-last exam (Tele-ICU Physician , consultation) Available chart/ vitals / labs / Images reviewed H&P is from ER notes Patient's information available about PMH, Shx, Fhx allergy reviewed inEMR. ROS as per chart and RN report Now in ICU, hemodynamically stable Video assessment done using teleICU camera, rest of exam as per RN Discussed with RN. Consultants: Hospital course: A/P DKA -Unclear precipitant, No suspicious for new infection_ *Insulin drip, continue to monitor for resolution of acidosis, AG and mona ctrolytes. Continue hydration. *Tx Gastroparesis MICHEL on CKD - dehydration, hypotension- -- baseline around 2- as per Dr Pretty - discussed with nephrology who asked for bicarb gtt - cont IVF - follow closely Hyperkalemia due to MICHEL - improving - follow closely Leukocytosis - reactive? UA unremarkable >off ABX , follow PseudoHyponatremia - follow Anemia - stable Lines : , (Central Line Necessity Reviewed) Pal: OG: Nutrition: Analgesia: Anxiety/ delirium VTE Prophylaxis: SCD Stress Ulcer Prophylaxis: PPI Plans in collaboration with bedside consultants and IM MDs. Discussed with RN to reach out if any questions or concerns A total of 33 minutes of critical care time was devoted to this patient today, required to treat and/or prevent further deterioration of critical care condition ( as above ) . Sepsis Event Evaluation Height, Weight, BMI Height: 5'9.00" Weight: 150lbs. 0.0oz. 68.876033ve; 25.00 BMI Method:Stated Focused Exam Lactate Level 11/28/21 14:50: Lactic Acid Level 3.47*H 11/28/21 17:50: Lactic Acid Level 2.97*H Lactic Acid Level Laboratory Tests Test 11/28/21 17:50 Lactic Acid Level 2.97 MMOL/L (0.50-2.00) *H Exam Exam Patient acknowledged, consented, and participated in this virtual visit which was conducted using real time audio/video Vital Signs Date Time Temp Pulse Resp B/P (MAP) Pulse Ox O2 Delivery O2 Flow Rate FiO2 11/28/21 18:11 98 Room Air 11/28/21 17:17 85 11/28/21 17:15 86 17 109/78 98 Room Air 11/28/21 13:57 82 17 109/57 (77) 98 Height & Weight Height: 5'9.00" Weight: 150lbs. 0.0oz. 68.208286ap; 25.00 BMI Method:Stated General Appearance: No Apparent Distress, WD/WN HEENT: PERRL/EOMI, Moist Mucous Membranes; No Scleral Icterus (L), No Scleral Icterus (R) Neck: Normal Inspection, Supple Respiratory: Lungs Clear, No Accessory Muscle Use, No Respiratory Distress Cardiovascular: No Murmur, Tachycardia Extremity: Normal Capillary Refill, No Calf Tenderness, No Pedal Edema, Other (linear scar on right knee) Neurologic/Psychiatric: Alert, Oriented x3, Normal Mood/Affect Skin: Normal Color, Warm/Dry Results Lab Laboratory Tests 11/28/21 14:15 11/28/21 17:35 11/28/21 17:50 Assessment/Plan Assessment/Plan 1 ALISHA SHEN MD Nov 28, 2021 18:54
[2021-11-28] MEDS ORDERED: PANTOPRAZOLE 40 MG (PROTONIX) VIAL IV NR (19:00)
[2021-11-28 21:37] LABS: POTASSIUM 4.8 MMOL/L (3.6-5.0)
[2021-11-28 21:43] LABS: CREATININE SERUM 4.81 MG/DL (0.60-1.30)
[2021-11-28] MEDS ORDERED: GABA300S2 PO (21:45)
[2021-11-28] MEDS ORDERED: MTP100TCR PO (21:45)
[2021-11-28] MEDS ORDERED: FURO20TA4 PO (21:45)
[2021-11-28] MEDS ORDERED: LOSA100T57 PO (21:45)
[2021-11-28] MEDS ORDERED: NF-SODBICA PO (21:45)
[2021-11-28] MEDS ORDERED: LABETALOL HCL 20 MG/4 ML VIAL IV PRN (22:00)
[2021-11-29 01:33] LABS: BASOPHILS % (AUTO) 0 % (0-10); EOSINOPHILS % (AUTO) 0 % (0-10); HEMATOCRIT 25 % (40-54); HEMOGLOBIN 8.5 g/dL (13.3-17.7); LYMPHOCYTES # (AUTO) 2.1 10^3/uL (1.0-4.0); LYMPHOCYTES % (AUTO) 21 % (12-44); MEAN CORPUSCULAR HEMOGLOBIN 30 pg (25-34); MEAN CORPUSCULAR HGB CONC 35 g/dL (32-36); MEAN CORPUSCULAR VOLUME 85 fL (80-99); MEAN PLATELET VOLUME 10.2 fL (9.0-12.2); MONOCYTES # (AUTO) 1.2 10^3/uL (0.0-1.0); MONOCYTES % (AUTO) 11 % (0-12); NEUTROPHILS # (AUTO) 6.9 10^3/uL (1.8-7.8); NEUTROPHILS % (AUTO) 67 % (42-75); PLATELET COUNT 277 10^3/uL (130-400); WHITE BLOOD COUNT 10.3 10^3/uL (4.3-11.0)
[2021-11-29 01:51] LABS: ALBUMIN 3.2 GM/DL (3.2-4.5); POTASSIUM 3.9 MMOL/L (3.6-5.0)
[2021-11-29 01:54] LABS: TOTAL PROTEIN 5.2 GM/DL (6.4-8.2)
[2021-11-29 01:55] LABS: BILIRUBIN,TOTAL 0.5 MG/DL (0.1-1.0)
[2021-11-29] MEDS: POTASSIUM CL 10MEQ/50ML IVPB 50 ML IV SCH ×5 (01:56→10:37)
[2021-11-29 01:57] LABS: CREATININE SERUM 4.72 MG/DL (0.60-1.30); PHOSPHORUS 3.2 MG/DL (2.3-4.7)
[2021-11-29] MEDS: D5 1/2 NS 1000 ML IV SOLUTION 1,000 ML IV SCH ×2 (01:58→05:57)
[2021-11-29 02:00] LABS: MAGNESIUM 1.8 MG/DL (1.6-2.4)
[2021-11-29] MEDS ORDERED: LABETALOL HCL 20 MG/4 ML VIAL IV ONE (02:00)
[2021-11-29] MEDS: 1/2 NS IV SOLUTION 1,000 ML IV SCH ×2 (02:11→04:21)
[2021-11-29] MEDS: SODIUM BICARBONATE 8.4% VIAL 150 MEQ in WATER FOR INJECTION, STERILE 1,000 ML IV SCH (08:34)
[2021-11-29] MEDS ORDERED: PANTOPRAZOLE 40 MG (PROTONIX) TAB PO SCH (09:00)
[2021-11-29] MEDS ORDERED: amLODIPine 5 MG (NORVASC) TAB PO SCH (09:00)
[2021-11-29] MEDS ORDERED: meTOprolol SUCCINATE 100 MG (TOPROL XL) TAB PO SCH (09:00)
[2021-11-29 09:50] LABS: CALCIUM 7.8 MG/DL (8.5-10.1); CREATININE SERUM 4.07 MG/DL (0.60-1.30); POTASSIUM 3.6 MMOL/L (3.6-5.0)
--- NOTE | 2021-11-29 10:08 | Tele-ICU Progress Note ---
Subjective Date Seen by a Provider: Nov 29, 2021 Time Seen by a Provider: 10:08 Subjective/Events-last exam (Tele-ICU Physician , Progress Note ) Available chart/ vitals / labs / Images reviewed Video assessment done using teleICU camera, rest of exam as per RN Discussed with RN Events overnight : Afebrile hemodynamically stable Respiratory - I/O = Drips: Pressors- no Consultants: A/P DKA -Unclear precipitant, No suspicious for new infection *Insulin drip, noted resolution of acidosis, AG - awaiting for insulin pump to start and then can stop gtt *Tx Gastroparesis MICHEL on CKD - dehydration, hypotension- -- baseline around 2- as per Dr Pretty - discussed with nephrology who asked for bicarb gtt - cont IVF - follow closely Hyperkalemia due to MICHEL - improving - follow closely Leukocytosis - reactive? UA unremarkable >off ABX , follow Anemia - stable , delutional Lines : , (Central Line Necessity Reviewed) Pal: OG: Nutrition: Analgesia: Anxiety/ delirium VTE Prophylaxis: SCD Stress Ulcer Prophylaxis: PPI Plans in collaboration with bedside consultants and IM MDs. Discussed with RN to reach out if any questions or concerns A total of 20 minutes of critical care time was devoted to this patient today, required to treat and/or prevent further deterioration of critical care condition ( as above ) . Sepsis Event Evaluation Height, Weight, BMI Height: 5'9.00" Weight: 150lbs. 0.0oz. 68.253364ad; 28.24 BMI Method:Stated Focused Exam Lactate Level 11/28/21 17:50: Lactic Acid Level 2.97*H 11/28/21 21:10: Lactic Acid Level 2.37*H 11/29/21 00:05: Lactic Acid Level 1.38 Exam Exam Patient acknowledged, consented, and participated in this virtual visit which was conducted using real time audio/video Vital Signs Date Time Temp Pulse Resp B/P (MAP) Pulse Ox O2 Delivery O2 Flow Rate FiO2 11/29/21 09:00 87 9 116/67 98 Room Air 11/29/21 08:00 36.1 11/29/21 08:00 85 123/75 Room Air 11/29/21 07:45 98 Room Air 11/29/21 07:09 85 11/29/21 07:00 89 12 129/77 92 Room Air 11/29/21 06:00 90 17 152/66 94 Room Air 11/29/21 05:00 89 16 154/81 97 Room Air 11/29/21 04:00 90 17 155/75 96 Room Air 11/29/21 04:00 36.7 11/29/21 04:00 96 Room Air 11/29/21 03:00 92 16 156/72 96 Room Air 11/29/21 02:00 90 16 162/78 96 Room Air 11/29/21 01:00 92 11/29/21 01:00 92 20 170/82 96 Room Air 11/29/21 00:00 98 Room Air 11/29/21 00:00 93 15 145/80 97 Room Air 11/28/21 23:46 37.0 11/28/21 23:02 97 17 166/73 97 Room Air 11/28/21 22:00 83 16 188/79 97 Room Air 11/28/21 21:00 86 22 173/77 96 Room Air 11/28/21 20:00 97 Room Air 11/28/21 20:00 37.0 11/28/21 20:00 85 17 151/66 98 Room Air 11/28/21 19:00 84 18 149/67 97 Room Air 11/28/21 19:00 84 11/28/21 18:11 98 Room Air 11/28/21 17:17 85 11/28/21 17:15 86 17 109/78 98 Room Air 11/28/21 17:00 87 14 110/65 97 11/28/21 13:57 82 17 109/57 (74) 98 I & O 11/29/21 07:00 Intake Total 5470 ml Output Total 0 ml Balance 5470 ml Height & Weight Height: 5'9.00" Weight: 150lbs. 0.0oz. 68.957408lq; 28.24 BMI Method:Stated General Appearance: No Apparent Distress, WD/WN HEENT: PERRL/EOMI, TMs Normal, Normal ENT Inspection, Pharynx Normal Neck: Full Range of Motion, Normal Inspection, Non Tender Respiratory: Chest Non Tender, Lungs Clear, Normal Breath Sounds, No Accessory Muscle Use, No Respiratory Distress Cardiovascular: Regular Rate, Rhythm, No Edema, No Gallop, No JVD Extremity: Normal Capillary Refill, Normal Inspection, Normal Range of Motion, Non Tender, No Calf Tenderness Neurologic/Psychiatric: Alert, Oriented x3, No Motor/Sensory Deficits, Normal Mood/Affect, registration manager II-XII Norm as Tested Skin: Normal Color, Warm/Dry Results Lab Laboratory Tests 11/28/21 14:15 11/28/21 17:35 11/28/21 17:50 11/28/21 21:10 11/29/21 01:24 11/29/21 09:20 Assessment/Plan Assessment/Plan 1 ALISHA SHEN MD Nov 29, 2021 10:08
--- NOTE | 2021-11-29 11:13 | Consultation ---
History of Present Illness History of Present Illness Patient Consulted On(jhon/time) 11/29/21 11:08 History of Present Illness Mr. Nieto is a pleasant 36 y/o WM with h/o type 1 DM admitted with DKA found to have MICHEL. He was placed on the DKA protocol along with a bicarb gtt to improve the acidosis as well as to volume expand. Admission creatinine was 5.9. He recently established care with Dr. Federico Lake of our office 10/2021 and has known CKD 4 due to diabetic nephropathy along with hypertensive nephrosclerosis plus a h/o nsaid use. Allergies and Home Medications Allergies Uncoded Allergies: STEROID (Adverse Reaction, Unknown, 'CHEST FELT TIGHT', 11/28/14) Patient Home Medication List Amlodipine Besylate (Amlodipine Besylate) 10 Mg Tablet, 5 MG PO DAILY, (Reported) Entered as Reported by: VIOLA FALL on 12/14/201000 Last Action: Last Taken Edited Atorvastatin Calcium (Atorvastatin Calcium) 10 Mg Tablet, 10 MG PO HS, (Reported) Entered as Reported by: VIOLA FALL on 12/14/201000 Last Action: Last Taken Edited Furosemide (Furosemide) 20 Mg Tablet, 20 MG PO DAILY, (Reported) Entered as Reported by: KAVITHA TUCKER on 11/28/212144 Last Action: New Order Gabapentin (Gabapentin) 300 Mg/6 Ml (6 Ml) Solution, 300 MG PO HS, (Reported) Entered as Reported by: KAVITHA TUCKER on 11/28/212144 Last Action: New Order Insulin Aspart (Novolog) 100 Unit/1 Ml Susp, UNIT SQ PER PUMP, (Reported) Entered as Reported by: VIOLA FALL on 12/14/201000 Last Action: Last Taken Edited Losartan Potassium (Losartan Potassium) 100 Mg Tablet, 100 MG PO DAILY, (Reported) Entered as Reported by: KAVITHA TUCKER on 11/28/212144 Last Action: New Order Metoprolol Succinate (Metoprolol Succinate) 100 Mg Tab.er.24h, 100 MG PO DAILY, (Reported) Entered as Reported by: KAVITHA TUCKER on 11/28/212144 Last Action: New Order Pantoprazole Sodium (Pantoprazole Sodium) 40 Mg Tablet.dr, 40 MG PO DAILY, (Reported) Entered as Reported by: VIOLA FALL on 8/10/21 1001 Last Action: Last Taken Edited Sodium Bicarbonate (Sodium Bicarbonate) 650 Mg Tablet, 650 MG PO BID, (Reported) Entered as Reported by: KAVITHA GARRETT on 11/28/212144 Last Action: New Order Discontinued Medications Garlic (Garlic) 1,000 Mg Capsule, 1,000 MG PO BID, (Reported) Discontinued Reason: No Longer Taking Entered as Reported by: VIOLA FALL on 12/14/20 1001 Last Action: Discontinued Insulin Detemir (Levemir Flextouch) 100 Unit/1 Ml Insuln.pen, 10 UNIT SQ BID Discontinued Reason: No Longer Taking Prescribed by: BLANCA KENYON on 12/15/20 1053 Last Action: Discontinued Past Mplxixp-Uqlers-Ivpreq Hx Patient Social History Smokeless Tobacco Frequency: Current Everyday User Substance use?: No Alcohol Use?: Yes Alcohol type: Beer Alcohol Frequency: Couple times a week Immunizations Up To Date Tetanus Booster (TDap): Less than 5yrs Past Medical History Surgeries: Yes Orthopedic Respiratory: No Currently Using CPAP: No Currently Using BIPAP: No Cardiac: Yes Hypertension Neurological: No Reproductive Disorders: No Genitourinary: No Renal Failure Gastrointestinal: No Musculoskeletal: No Endocrine: Yes Diabetes, Insulin dep Cancer: No Psychosocial: No Integumentary: No Blood Disorders: No Adverse Reaction/Blood Tranf: No Family Medical History Reviewed Nursing Family Hx No Pertinent Family Hx Review of Systems-General Constitutional: see HPI Physical Exam-General Problems Physical Exam Vital Signs Vital Signs - First Documented 11/28/21 11/28/21 13:57 17:15 Pulse 82 Resp 17 B/P (MAP) 109/57 (74) Pulse Ox 98 O2 Delivery Room Air Capillary Refill : Assessment/Plan Assessment/Plan Admission Diagnosis/Plan MICHEL on CKD 4 baseline 2.6-3.1 as of August-October 2021 MICHEL due to volume depletion as a result of osmotic diuresis in the setting of DKA Agree with supportive care h/o nsaid use and aware to avoid them; stopped 8 months ago follows with Dr. Federico Lake in our office and has an appointment on 12/15/21 at 930am will need output close monitoring of renal function metabolic acidosis due to DKA as well as renal failure resume home bicarb received isotonic bicarb gtt on admission responding well hyperkalemia complicated by acidosis and hyperglycemia improving HTN continue current meds goal bp <130/80 encourage low sodium diet AILYN WADSWORTH MD Nov 29, 2021 11:13
--- NOTE | 2021-11-29 11:25 | Consultation ---
History of Present Illness History of Present Illness Patient Consulted On(john/time) 11/29/21 11:23 History of Present Illness Mr. Nieto is a pleasant 36 y/o WM with h/o type 1 DM admitted with DKA found to have MICHEL. He was placed on the DKA protocol along with a bicarb gtt to improve the acidosis as well as to volume expand. Admission creatinine was 5.9. He recently established care with Dr. Federico Lake of our office 10/2021 and has known CKD 4 due to diabetic nephropathy along with hypertensive nephrosclerosis plus a h/o nsaid use. Allergies and Home Medications Allergies Uncoded Allergies: STEROID (Adverse Reaction, Unknown, 'CHEST FELT TIGHT', 11/28/14) Patient Home Medication List Amlodipine Besylate (Amlodipine Besylate) 10 Mg Tablet, 5 MG PO DAILY, (Reported) Entered as Reported by: VIOLA FALL on 12/14/201000 Last Action: Last Taken Edited Atorvastatin Calcium (Atorvastatin Calcium) 10 Mg Tablet, 10 MG PO HS, (Reported) Entered as Reported by: VIOLA FALL on 12/14/201000 Last Action: Last Taken Edited Furosemide (Furosemide) 20 Mg Tablet, 20 MG PO DAILY, (Reported) Entered as Reported by: KAVITHA TUCKER on 11/28/212144 Last Action: New Order Gabapentin (Gabapentin) 300 Mg/6 Ml (6 Ml) Solution, 300 MG PO HS, (Reported) Entered as Reported by: KAVITHA TUCKER on 11/28/212144 Last Action: New Order Insulin Aspart (Novolog) 100 Unit/1 Ml Susp, UNIT SQ PER PUMP, (Reported) Entered as Reported by: VIOLA FALL on 12/14/201000 Last Action: Last Taken Edited Losartan Potassium (Losartan Potassium) 100 Mg Tablet, 100 MG PO DAILY, (Reported) Entered as Reported by: KAVITHA TUCKER on 11/28/212144 Last Action: New Order Metoprolol Succinate (Metoprolol Succinate) 100 Mg Tab.er.24h, 100 MG PO DAILY, (Reported) Entered as Reported by: KAVITHA TUCKER on 11/28/212144 Last Action: New Order Pantoprazole Sodium (Pantoprazole Sodium) 40 Mg Tablet.dr, 40 MG PO DAILY, (Reported) Entered as Reported by: VIOLA FALL on 8/10/21 1001 Last Action: Last Taken Edited Sodium Bicarbonate (Sodium Bicarbonate) 650 Mg Tablet, 650 MG PO BID, (Reported) Entered as Reported by: KAVITHA TUCKER on 11/28/212144 Last Action: New Order Discontinued Medications Garlic (Garlic) 1,000 Mg Capsule, 1,000 MG PO BID, (Reported) Discontinued Reason: No Longer Taking Entered as Reported by: VIOLA FALL on 12/14/20 1001 Last Action: Discontinued Insulin Detemir (Levemir Flextouch) 100 Unit/1 Ml Insuln.pen, 10 UNIT SQ BID Discontinued Reason: No Longer Taking Prescribed by: BLANCA KENYON on 12/15/20 1053 Last Action: Discontinued Past Jmocqkc-Pnoyif-Akdbjn Hx Patient Social History Smokeless Tobacco Frequency: Current Everyday User Substance use?: No Alcohol Use?: Yes Alcohol type: Beer Alcohol Frequency: Couple times a week Immunizations Up To Date Tetanus Booster (TDap): Less than 5yrs Past Medical History Surgeries: Yes Orthopedic Respiratory: No Currently Using CPAP: No Currently Using BIPAP: No Cardiac: Yes Hypertension Neurological: No Reproductive Disorders: No Genitourinary: No Renal Failure Gastrointestinal: No Musculoskeletal: No Endocrine: Yes Diabetes, Insulin dep Cancer: No Psychosocial: No Integumentary: No Blood Disorders: No Adverse Reaction/Blood Tranf: No Family Medical History Reviewed Nursing Family Hx No Pertinent Family Hx Physical Exam-General Problems Physical Exam Vital Signs Vital Signs - First Documented 11/28/21 11/28/21 13:57 17:15 Pulse 82 Resp 17 B/P (MAP) 109/57 (74) Pulse Ox 98 O2 Delivery Room Air Capillary Refill : Assessment/Plan Assessment/Plan Admission Diagnosis/Plan MICHEL on CKD 4 baseline 2.6-3.1 as of August-October 2021 MICHEL due to volume depletion as a result of osmotic diuresis in the setting of DKA Agree with supportive care h/o nsaid use and aware to avoid them; stopped 8 months ago follows with Dr. Federico Lake in our office and has an appointment on 12/15/21 at 930am will need output close monitoring of renal function metabolic acidosis due to DKA as well as renal failure resume home bicarb received isotonic bicarb gtt on admission responding well hyperkalemia complicated by acidosis and hyperglycemia improving HTN continue current meds goal bp <130/80 encourage low sodium diet Anemia check iron, b12 and folate and replace according will assess need for erythropoetin stimulating agents as outpt at follow up visit given advanced CKD and probable need for kidney transplant in the future please transfuse leukocyte reduced blood ONLY prn AILYN WADSWORTH MD Nov 29, 2021 11:25
[2021-11-29] MEDS ORDERED: ACET325T38 PO (11:52)
[2021-11-29] MEDS ORDERED: GABA300C PO (11:52)
[2021-11-29] MEDS ORDERED: ATOR20TA66 PO (11:52)
--- NOTE | 2021-11-29 12:13 | Discharge Summary ---
Diagnosis/Chief Complaint Date of Admission Nov 28, 2021 at 16:12 Date of Discharge Admission Diagnosis DKA Primary Care Jimbo Machuca DO Discharge Diagnosis (1) DKA (diabetic ketoacidoses) Status: Resolved (2) Acute kidney injury superimposed on chronic kidney disease Status: Acute (3) Nausea and vomiting Status: Acute (4) Hyperkalemia Status: Acute Discharge Summary Discharge Physical Exam Allergies: Uncoded Allergies: STEROID (Adverse Reaction, Unknown, 'CHEST FELT TIGHT', 11/28/14) Vitals & I&Os Vital Signs Date Time Temp Pulse Resp B/P (MAP) Pulse Ox O2 Delivery O2 Flow Rate FiO2 11/29/21 10:00 82 11 147/79 99 Room Air 11/29/21 08:00 36.1 General Appearance: No Apparent Distress, WD/WN Cardiovascular: Regular Rate, Rhythm, No Murmur Neurologic/Psychiatric: Alert, Oriented x3 Hospital Course Patient was admitted secondary to severe DKA with acute renal failure. He was treated with an insulin drip, IV fluid resuscitation, and bicarb. He was seen in consultation by telemetry ICU and nephrology. His potassium improved from 7.3-3.9 this morning. His creatinine improved as well from 5.09-4.02. Per nephrology he has a baseline around 3. He was restarted on his insulin pump and did well. A repeat BMP after initiation of his insulin pump showed stable labs and he was able to be discharged home to follow-up with his primary care physician and with nephrology as already scheduled in December. Labs (last 24 hrs) Laboratory Tests 11/28/21 14:15: White Blood Count 11.3H, Red Blood Count 3.62L, Hemoglobin 10.8L, Hematocrit 33L , Mean Corpuscular Volume 92, Mean Corpuscular Hemoglobin 30, Mean Corpuscular Hemoglobin Concent 33, Red Cell Distribution Width 12.9, Platelet Count 369, Mean Platelet Volume 10.9, Immature Granulocyte % (Auto) 0, Neutrophils (%) (Auto) 91H, Lymphocytes (%) (Auto) 5L, Monocytes (%) (Auto) 4, Eosinophils (%) (Auto) 0, Basophils (%) (Auto) 1, Neutrophils # (Auto) 10.2H, Lymphocytes # (Auto) 0.5L, Monocytes # (Auto) 0.5, Eosinophils # (Auto) 0.0, Basophils # (Auto) 0.1, Immature Granulocyte # (Auto) 0.1, Neutrophils % (Manual) 92, Lymphocytes % (Manual) 5, Monocytes % (Manual) 3, Tushar Cells SLIGHT, Acanthocytes MODERATE, Sodium Level 122*L, Potassium Level 7.3#*H, Chloride Level 84L, Carbon Dioxide Level 8*L, Anion Gap 30H, Blood Urea Nitrogen 57H, Creatinine 5.09H, Estimat Glomerular Filtration Rate 14, BUN/Creatinine Ratio 11, Glucose Level 817*H, Calcium Level 9.0, Corrected Calcium 9.1, Total Bilirubin 0.7, Aspartate Amino Transf (AST/SGOT) 28, Alanine Aminotransferase (ALT/SGPT) 34, Alkaline Phosphatase 172H, Total Protein 6.5, Albumin 3.9, Lipase 20, Beta-Hydroxybutyrate (Chem panel) 13.10H, Serum Alcohol < 10 11/28/21 14:19: Urine Color YELLOW, Urine Clarity CLEAR, Urine pH 5.5, Urine Specific [place] 1.025H, Urine Protein 3+H, Urine Glucose (UA) 3+H, Urine Ketones TRACEH, Urine Nitrite NEGATIVE, Urine Bilirubin NEGATIVE, Urine Urobilinogen 0.2, Urine Leukocyte Esterase NEGATIVE, Urine RBC (Auto) 1+H, Urine RBC 0-2, Urine WBC 0-2, Urine Squamous Epithelial Cells 0-2, Urine Crystals NONE, Urine Bacteria FEWH, Urine Casts PRESENT, Urine Hyaline Casts 2-5H, Urine Mucus NEGATIVE, Urine Culture Indicated YES 11/28/21 14:43: Bedside Blood Gas pH (LAB) 7.126*L, Bedside Blood Gas pCO2 (LAB) 24.4L, Bedside Blood Gas pO2 (LAB) 106H, Bedside Blood Gas HCO3 (LAB) 8.0*L, POC Blood Gas Total CO2 Calc 9*L, Bedside Bl Gas O2 Saturation (Calc) 96, Bedside Arterial Blood Base Excess -21L 11/28/21 14:50: Lactic Acid Level 3.47*H 11/28/21 17:19: Glucometer > 600*H 11/28/21 17:35: Sodium Level 130L, Potassium Level 5.7H, Chloride Level 90L, Carbon Dioxide Level 10L, Anion Gap 30H, Blood Urea Nitrogen 58H, Creatinine 5.03H, Estimat Glomerular Filtration Rate 14, BUN/Creatinine Ratio 12, Glucose Level 623*H, Calcium Level 8.7, Beta-Hydroxybutyrate (Chem panel) 11.06H 11/28/21 17:50: White Blood Count 12.1H, Red Blood Count 3.24L, Hemoglobin 9.7L, Hematocrit 30L, Mean Corpuscular Volume 91, Mean Corpuscular Hemoglobin 30, Mean Corpuscular Hemoglobin Concent 33, Red Cell Distribution Width 12.8, Platelet Count 284, Mean Platelet Volume 10.4, Lactic Acid Level 2.97*H 11/28/21 19:06: Glucometer 424*H 11/28/21 21:10: Sodium Level 129L, Potassium Level 4.8, Chloride Level 93L, Carbon Dioxide Level 15L, Anion Gap 21H, Blood Urea Nitrogen 55H, Creatinine 4.81H, Estimat Glomerular Filtration Rate 15, BUN/Creatinine Ratio 11, Glucose Level 391H, Lactic Acid Level 2.37*H, Calcium Level 8.0L 11/29/21 00:05: Lactic Acid Level 1.38 11/29/21 01:24: Sodium Level 131L, Potassium Level 3.9, Chloride Level 96L, Carbon Dioxide Level 21, Anion Gap 14, Blood Urea Nitrogen 52H, Creatinine 4.72H, Estimat Glomerular Filtration Rate 15, BUN/Creatinine Ratio 11, Glucose Level 224H, Calcium Level 8.0L, White Blood Count 10.3, Red Blood Count 2.88L, Hemoglobin 8.5L, Hematocrit 25L, Mean Corpuscular Volume 85, Mean Corpuscular Hemoglobin 30, Mean Corpuscular Hemoglobin Concent 35, Red Cell Distribution Width 12.5, Platelet Count 277, Mean Platelet Volume 10.2, Immature Granulocyte % (Auto) 0, Neutrophils (%) (Auto) 67, Lymphocytes (%) (Auto) 21, Monocytes (%) (Auto) 11, Eosinophils (%) (Auto) 0, Basophils (%) (Auto) 0, Neutrophils # (Auto) 6.9, Lymphocytes # (Auto) 2.1, Monocytes # (Auto) 1.2H, Eosinophils # (Auto) 0.0, B asophils # (Auto) 0.0, Immature Granulocyte # (Auto) 0.0, Corrected Calcium 8.6, Phosphorus Level 3.2, Magnesium Level 1.8, Total Bilirubin 0.5, Aspartate Amino Transf (AST/SGOT) 23, Alanine Aminotransferase (ALT/SGPT) 26, Alkaline Phosphatase 116, Total Protein 5.2L, Albumin 3.2, Beta-Hydroxybutyrate (Chem panel) 0.84H 11/29/21 06:03: Glucometer 162H 11/29/21 07:13: Glucometer 158H 11/29/21 08:12: Glucometer 132H 11/29/21 09:20: Sodium Level 132L, Potassium Level 3.6, Chloride Level 96L, Carbon Dioxide Level 22, Anion Gap 14, Blood Urea Nitrogen 44H, Creatinine 4.07#H, Estimat Glomerular Filtration Rate 18, BUN/Creatinine Ratio 11, Glucose Level 192H, Calcium Level 7.8L 11/29/21 09:45: Glucometer 250H 11/29/21 11:10: Glucometer 200H Patient resulted labs reviewed. Pending Labs Laboratory Tests 11/29/21 06:03: Glucometer 162 11/29/21 07:13: Glucometer 158 11/29/21 08:12: Glucometer 132 11/29/21 09:20: Sodium Level 132, Potassium Level 3.6, Chloride Level 96, Carbon Dioxide Level 22, Anion Gap 14, Blood Urea Nitrogen 44, Creatinine 4.07, Estimat Glomerular Filtration Rate 18, BUN/Creatinine Ratio 11, Glucose Level 192, Calcium Level 7.8 11/29/21 09:45: Glucometer 250 11/29/21 11:10: Glucometer 200 Discussion & Recommendations Discharge Planning: >30 minutes discharge planning Discharge Home Medications: Active Scripts Active Reported Tylenol (Acetaminophen) 325 Mg Tablet 650 Mg PO Q8H PRN Neurontin (Gabapentin) 300 Mg Capsule 300 Mg PO HS Atorvastatin Calcium 20 Mg Tablet 20 Mg PO HS Metoprolol Succinate 100 Mg Tab.er.24h 100 Mg PO DAILY Furosemide 20 Mg Tablet 20 Mg PO DAILY Losartan Potassium 100 Mg Tablet 100 Mg PO DAILY Sodium Bicarbonate 650 Mg Tablet 650 Mg PO BID Novolog (Insulin Aspart) 100 Unit/1 Ml Susp Unit SQ PER PUMP Amlodipine Besylate 10 Mg Tablet 5 Mg PO HS TAKES OF A 10MG TAB Pantoprazole Sodium 40 Mg Tablet.dr 40 Mg PO DAILY Instructions to patient/family Please see electronic discharge instructions given to patient. BLANCA KENYON MD Nov 29, 2021 12:13
--- NOTE | 2021-11-29 12:26 | Discharge Inst-Simple/Standard ---
Discharge Inst-Standard Patient Instructions/Follow Up Plan of Care/Instructions/FU: Please continue to take your medications as written. Please follow up with your primary care doctor to follow up this hospital stay. Please keep your appointment with nephrology next month as scheduled. Activity as Tolerated: Yes Discharge Diet: ADA Diet Return to The Hospital For: Chest pain, shortness of breath, high blood sugars, weakness, confusion, abdominal pain, fever, if you feel you are getting worse. BLANCA KENYON MD Nov 29, 2021 12:26
[2021-11-29 16:06] LABS: POTASSIUM 4.4 MMOL/L (3.6-5.0)
[2021-11-29 16:07] LABS: CALCIUM 8.2 MG/DL (8.5-10.1)
[2021-11-29 16:12] LABS: CREATININE SERUM 4.26 MG/DL (0.60-1.30)
[2021-11-29 16:56] VITALS: BP 163/104
[2021-11-29] MEDS ORDERED: GABAPENTIN 300 MG (NEURONTIN) CAP PO SCH (21:00)
[2021-11-29] MEDS ORDERED: SODIUM BICARBONATE 650 MG TABLET PO SCH (21:00)
[2021-11-29] MEDS ORDERED: AtorvaSTATin TABLET 10 MG TABLET PO SCH (21:00)
== END 2021-11-29 16:55 | disposition home or self-care (01) | DRG 638 ==
LOC: EDUNIT# 13:53 → ER 13:54 → ICU 16:12
PROVIDERS: ADMIT Family Medicine; ATTEND Family Medicine
DX: E10.10 Type 1 diabetes mellitus with ketoacidosis without coma (principal); N17.9 Acute kidney failure, unspecified; N18.4 Chronic kidney disease, stage 4 (severe); E10.21 Type 1 diabetes mellitus with diabetic nephropathy; I12.9 Hypertensive chronic kidney disease with stage 1 through stage 4 chronic kidney disease, or unspecified chronic kidney disease; E10.22 Type 1 diabetes mellitus with diabetic chronic kidney disease; E86.0 Dehydration; D64.9 Anemia, unspecified; F17.220 Nicotine dependence, chewing tobacco, uncomplicated; Z79.4 Long term (current) use of insulin; Z88.8 Allergy status to other drugs, medicaments and biological substances
CPT/HCPCS: 36415; 80048; 80053; 80320; 81000; 82010; 82805; 82947; 83036; 83605; 83690; 83735; 84100; 85007; 85025; 85027; 87081; 87088; 93005

== ENCOUNTER → 2021-12-21 | Outpatient (CLI) | payer MEDICARE, MEDICAID ==
[~2021-12-21] MED LIST changes: +ACET325T38 PO; +ATOR20TA66 PO; +FURO20TA4 PO; +GABA300C PO; +GABA300S2 PO; +LOSA100T57 PO; +MTP100TCR PO; +NF-SODBICA PO
--- NOTE | 2021-12-21 14:16 | Diagnostic Imaging Report ---
PROCEDURE: US Renal/Bladder. TECHNIQUE: Multiple Real-time grayscale images were obtained over the kidneys in various projections bilaterally. INDICATION: Chronic renal disease. COMPARISON: 10/07/2021. FINDINGS: Right: The right kidney measures 10.1 cm in length. Renal cortical thickness and echogenicity are within normal limits. There is no evidence of calculi, solid focal mass or hydronephrosis. No perinephric fluid collections are identified. Left: The left kidney measures 9.6 cm in length. Renal cortical thickness and echogenicity are within normal limits. There is no evidence of calculi, solid focal mass or hydronephrosis. No perinephric fluid collections are identified. There is no abdominal ascites. Views of the pelvis demonstrate a moderately distended urinary bladder. Both ureteral jets are visualized. A moderate volume of residual urine is seen on the post void images. No large intraluminal filling defect or calculi are identified. IMPRESSION: 1. No acute renal abnormalities identified. 2. Moderate volume of residual urine seen on post void imaging. Dictated by: Dictated on workstation # [id number]
== END ==
LOC: RAD 10:57
PROVIDERS: ATTEND Internal Medicine Nephrology
DX: N18.4 Chronic kidney disease, stage 4 (severe) (principal); E83.9 Disorder of mineral metabolism, unspecified; R80.8 Other proteinuria
CPT/HCPCS: 76770

== ENCOUNTER 2022-03-28 11:30 | Emergency (ER) | payer MEDICARE, MEDICAID ==
[~2022-03-28] VITALS: Ht 175 cm; Wt 84.4 kg
[2022-03-28] MEDS ORDERED: ONDANSETRON 4 MG/2 ML (SDV) Z0FRAN IVP ONE (11:45)
[2022-03-28] MEDS ORDERED: NS IV 1000 ML 1,000 ML IV SCH (11:45)
--- NOTE | 2022-03-28 11:47 | ED GI ---
General Chief Complaint: Abdominal/GI Problems Stated Complaint: WEAKNESS | VOMITING Nursing Triage Note: PT TO ED BY POV WITH C/O N/V, WEAKNESS AND ACHINESS SINCE SUNDAY. PT REPORTS HE GOT THE FLU SHOT ON SUNDAY AND HAS FELT THIS WAY SINCE. Source of Information: Patient Exam Limitations: No Limitations (DANIEL RENE APRN) History of Present Illness Date Seen by Provider: Mar 28, 2022 Time Seen by Provider: 11:35 Initial Comments Patient is a 36-year-old male with a past medical history of insulin-dependent diabetes and chronic kidney disease who presents to the emergency department for evaluation of repeated vomiting, weakness, and malaise that began Sunday. Patient states he got his flu shot on and feels like that is what prompted his onset of symptoms. No sick contacts in the recent past. Patient has not had a fever per his report. Patient has not been taking anything for the symptoms. He states his blood sugars have been in the 100s. He wears an insulin pump and states he has not been having to give himself increased bolus doses. (DANIEL RENE APRN) Allergies and Home Medications Allergies Uncoded Allergies: STEROID (Adverse Reaction, Unknown, 'CHEST FELT TIGHT', 11/28/14) Patient Home Medication List Home Medication List Reviewed: Yes (DANIEL RENE APRN) Acetaminophen (Tylenol) 325 Mg Tablet, 650 MG PO Q8H PRN for PAIN-MILD (1-4), (Reported) Entered as Reported by: VIOLA FALL on 11/29/21 115 Amlodipine Besylate (Amlodipine Besylate) 10 Mg Tablet, 5 MG PO HS, (Reported) Entered as Reported by: VIOLA FALL on 12/14/20 1001 Atorvastatin Calcium (Atorvastatin Calcium) 20 Mg Tablet, 20 MG PO HS, (Reported) Entered as Reported by: VIOLA FALL on 11/29/21 1152 Furosemide (Furosemide) 20 Mg Tablet, 20 MG PO DAILY, (Reported) Entered as Reported by: KAVITHA UTCKER on 11/28/21 214 Gabapentin (Neurontin) 300 Mg Capsule, 300 MG PO HS, (Reported) Entered as Reported by: VIOLA FALL on 11/29/21 115 Insulin Aspart (Novolog) 100 Unit/1 Ml Susp, UNIT SQ PER PUMP, (Reported) Entered as Reported by: VIOLA FALL on 12/14/20 100 Losartan Potassium (Losartan Potassium) 100 Mg Tablet, 100 MG PO DAILY, (Reported) Entered as Reported by: KAVITHA TUCKER on 11/28/212144 Metoprolol Succinate (Metoprolol Succinate) 100 Mg Tab.er.24h, 100 MG PO DAILY, (Reported) Entered as Reported by: KAVITHA TUCKER on 11/28/212144 Ondansetron (Ondansetron Odt) 4 Mg Tab.rapdis, 4 MG SL Q4H PRN for NAUSEA/VOMITING Prescribed by: Daniel Rene on 03/28/22 152 Pantoprazole Sodium (Pantoprazole Sodium) 40 Mg Tablet.dr, 40 MG PO DAILY, (Reported) Entered as Reported by: VIOLA FALL on 12/14/20 100 Promethazine HCl (Promethazine Suppository) 25 Mg Supp.rect, 25 MG RC Q6H PRN for NAUSEA/VOMITING-2ND LINE Prescribed by: Daniel Rene on 03/28/22 152 Sodium Bicarbonate (Sodium Bicarbonate) 650 Mg Tablet, 650 MG PO BID, (Reported) Entered as Reported by: KAVITHA TUCKER on 11/28/212144 Review of Systems Review of Systems Constitutional: see HPI, malaise, weakness EENTM: No Symptoms Reported Respiratory: No Symptoms Reported Cardiovascular: No Symptoms Reported Gastrointestinal: See HPI, Nausea, Vomiting Genitourinary: No Symptoms Reported Musculoskeletal: no symptoms reported Skin: no symptoms reported Psychiatric/Neurological: No Symptoms Reported (DANIEL RENE APRN) Past Snsusgl-Xigdhi-Sefzdt Hx Patient Social History Tobacco Use?: No Use of E-Cig and/or Vaping dev: No Substance use?: No Alcohol Use?: Yes Alcohol type: Beer Alcohol Frequency: Couple times a week Pt feels they are or have been: No (DANIEL RENE APRN) Immunizations Up To Date Tetanus Booster (TDap): Less than 5yrs Influenza Vaccine Up-to-Date: Yes; Up-to-Date First/Initial COVID19 Vaccinat: 2020 Second COVID19 Vaccination Marcelo: 2020 (DANIEL RENE APRN) Past Medical History Surgery/Hospitalization HX: DM APPENDECTOMY Surgeries: Yes Orthopedic Respiratory: No Currently Using CPAP: No Currently Using BIPAP: No Cardiac: Yes Hypertension Neurological: No Reproductive Disorders: No Genitourinary: No Renal Failure Gastrointestinal: No Musculoskeletal: No Endocrine: Yes Diabetes, Insulin dep Cancer: No Psychosocial: No Integumentary: No Blood Disorders: No Adverse Reaction/Blood Tranf: No (DANIEL RENE APRN) Family Medical History No Pertinent Family Hx (DANIEL RENE APRN) Physical Exam Vital Signs Vital Signs - First Documented 03/28/22 11:37 Temp 36.7 Pulse 118 Resp 18 B/P (MAP) 168/99 (122) Pulse Ox 98 O2 Delivery Room Air (GRISEL,DYLON K DO) Vital Signs Capillary Refill : Less Than 3 Seconds (DANIEL RENE APRN) Height/Weight/BMI Height: 5'9.00" Weight: 150lbs. 0.0oz. 68.747654st; 27.00 BMI Method:Stated General Appearance: WD/WN, no apparent distress HEENT: PERRL/EOMI, normal ENT inspection, TMs normal, pharynx normal Neck: non-tender, full range of motion, supple, normal inspection Respiratory: chest non-tender, lungs clear Cardiovascular: tachycardia Gastrointestinal: normal bowel sounds, soft, no organomegaly, no pulsatile mass, tenderness (Diffuse) Extremities: normal range of motion, non-tender, normal inspection, no pedal edema, no calf tenderness Neurologic/Psychiatric: no motor/sensory deficits, alert, normal mood/affect, oriented x 3 Skin: normal color, warm/dry (DANIEL RENE APRN) Progress/Results/Core Measures Results/Orders Lab Results Laboratory Tests Test 03/28/22 11:40 03/28/22 12:35 Range/Units White Blood Count 7.5 4.3-11.0 10^3/uL Red Blood Count 3.84 L 4.30-5.52 10^6/uL Hemoglobin 11.7 L 13.3-17.7 g/dL Hematocrit 34 L 40-54 % Mean Corpuscular Volume 88 80-99 fL Mean Corpuscular Hemoglobin 31 25-34 pg Mean Corpuscular Hemoglobin Concent 35 32-36 g/dL Red Cell Distribution Width 12.4 10.0-14.5 % Platelet Count 283 130-400 10^3/uL Mean Platelet Volume 9.6 9.0-12.2 fL Immature Granulocyte % (Auto) 0 % Neutrophils (%) (Auto) 81 H 42-75 % Lymphocytes (%) (Auto) 4 L 12-44 % Monocytes (%) (Auto) 13 H 0-12 % Eosinophils (%) (Auto) 1 0-10 % Basophils (%) (Auto) 0 0-10 % Neutrophils # (Auto) 6.1 1.8-7.8 10^3/uL Lymphocytes # (Auto) 0.3 L 1.0-4.0 10^3/uL Monocytes # (Auto) 1.0 0.0-1.0 10^3/uL Eosinophils # (Auto) 0.0 0.0-0.3 10^3/uL Basophils # (Auto) 0.0 0.0-0.1 10^3/uL Immature Granulocyte # (Auto) 0.0 0.0-0.1 10^3/uL Neutrophils % (Manual) 72 % Lymphocytes % (Manual) 7 % Monocytes % (Manual) 21 % Eosinophils % (Manual) 0 % Basophils % (Manual) 0 % Band Neutrophils 0 % Blood Morphology Comment NORMAL Sodium Level 132 L 135-145 MMOL/L Potassium Level 4.3 3.6-5.0 MMOL/L Chloride Level 96 L 98-107 MMOL/L Carbon Dioxide Level 17 L 21-32 MMOL/L Anion Gap 19 H 5-14 MMOL/L Blood Urea Nitrogen 40 H 7-18 MG/DL Creatinine 3.94 H 0.60-1.30 MG/DL Estimat Glomerular Filtration Rate 19 BUN/Creatinine Ratio 10 Glucose Level 149 H 70-105 MG/DL Calcium Level 9.7 8.5-10.1 MG/DL Corrected Calcium 9.4 8.5-10.1 MG/DL Total Bilirubin 0.6 0.1-1.0 MG/DL Aspartate Amino Transf (AST/SGOT) 32 5-34 U/L Alanine Aminotransferase (ALT/SGPT) 27 0-55 U/L Alkaline Phosphatase 93 40-136 U/L Total Protein 7.3 6.4-8.2 GM/DL Albumin 4.4 3.2-4.5 GM/DL Lipase 12 8-78 U/L Beta-Hydroxybutyrate (Chem panel) 5.45 H 0.00-0.27 MMOL/L Urine Color YELLOW Urine Clarity CLEAR Urine pH 5.5 5-9 Urine Specific [place] >=1.030 1.016-1.022 Urine Protein 3+ H NEGATIVE Urine Glucose (UA) TRACE H NEGATIVE Urine Ketones 1+ H NEGATIVE Urine Nitrite NEGATIVE NEGATIVE Urine Bilirubin 1+ H NEGATIVE Urine Urobilinogen 0.2 < = 1.0 MG/DL Urine Leukocyte Esterase NEGATIVE NEGATIVE Urine RBC (Auto) 2+ H NEGATIVE Urine RBC 2-5 H /HPF Urine WBC NONE /HPF Urine Squamous Epithelial Cells NONE /HPF Urine Crystals NONE /LPF Urine Bacteria NEGATIVE /HPF Urine Casts NONE /LPF Urine Mucus NEGATIVE /LPF Urine Culture Indicated NO (DYLON RECINOS ) Vital Signs/I&O 03/28/22 03/28/22 03/28/22 11:37 14:57 15:57 Temp 36.7 36.7 36.7 Pulse 118 116 Resp 18 18 B/P (MAP) 168/99 (122) 163/99 Pulse Ox 98 98 O2 Delivery Room Air Room Air (DYLON RECINOS ) Blood Pressure Mean: 122 Progress Progress Note : Progress Note Patient is nontoxic on exam. Vital signs notable for tachycardia. Patient does appear moderately dehydrated. He is diffusely tender to palpation with abdominal exam. Laboratory evaluation notable for hyponatremia, hypochloremia, elevated anion gap, elevated BUN/creatinine, mildly elevated beta hydroxybutyrate, trace glucosuria, and 1+ ketonuria. Patient does not appear to be in DKA at this time based on his labs. Patient was given 1 L of normal saline followed by 1 L of lactated Ringer's. His BUN and creatinine are improved from most recent labs noted in EMR. Patient was given several antiemetics with some improvement in symptoms. Patient was offered admission but he declined stating he wished to go home. Discussed importance of close follow-up with PCP. Very strict return precautions for urgent symptomology discussed. Patient verbalized understanding. (DANIEL RENE APRN) Departure Impression Primary Impression: Nausea & vomiting Qualified Codes: R11.2 - Nausea with vomiting, unspecified Additional Impression: Chronic kidney disease Qualified Codes: N18.4 - Chronic kidney disease, stage 4 (severe) Disposition: 01 HOME, SELF-CARE Condition: Improved Departure-Patient Inst. Decision time for Depature: 15:20 (DANIEL RENE APRN) Referrals: DIONNE FORRESTER DO (PCP/Family) Primary Care Physician Patient Instructions: Nausea and Vomiting, Adult ED, Chronic Kidney Disease Scripts Promethazine HCl (Promethazine Suppository) 25 Mg Supp.rect 25 MG RC Q6H PRN for NAUSEA/VOMITING-2ND LINE for 5 Days, #20 SUPP.RECT 0 Refills Prov: DANIEL RENE APRN 03/28/22 Ondansetron (Ondansetron Odt) 4 Mg Tab.rapdis 4 MG SL Q4H PRN for NAUSEA/VOMITING for 5 Days, #30 TAB 0 Refills Prov: DANIEL RENE APRN 03/28/22 ATTENDING PHYSICIAN NOTE: I WAS PHYSICALLY PRESENT ER PHYSICIAN, BUT I WAS NOT INVOLVED IN ANY DECISION MAKING OR ANY CARE OF THIS PATIENT, AND I AM NOT COLLABORATING PHYSICIAN. (DYLON RECINOS DO) DANIEL RENE APRN Mar 28, 2022 11:47 DYLON RECINOS DO Apr 01, 2022 04:18
[2022-03-28 11:59] LABS: BASOPHILS % (AUTO) 0 % (0-10); EOSINOPHILS % (AUTO) 1 % (0-10); HEMATOCRIT 34 % (40-54); HEMOGLOBIN 11.7 g/dL (13.3-17.7); LYMPHOCYTES # (AUTO) 0.3 10^3/uL (1.0-4.0); LYMPHOCYTES % (AUTO) 4 % (12-44); MEAN CORPUSCULAR HEMOGLOBIN 31 pg (25-34); MEAN CORPUSCULAR HGB CONC 35 g/dL (32-36); MEAN CORPUSCULAR VOLUME 88 fL (80-99); MEAN PLATELET VOLUME 9.6 fL (9.0-12.2); MONOCYTES % (AUTO) 13 % (0-12); NEUTROPHILS # (AUTO) 6.1 10^3/uL (1.8-7.8); NEUTROPHILS % (AUTO) 81 % (42-75); PLATELET COUNT 283 10^3/uL (130-400); WHITE BLOOD COUNT 7.5 10^3/uL (4.3-11.0)
[2022-03-28 12:11] LABS: ALBUMIN 4.4 GM/DL (3.2-4.5); POTASSIUM 4.3 MMOL/L (3.6-5.0)
[2022-03-28 12:12] LABS: CALCIUM 9.7 MG/DL (8.5-10.1)
[2022-03-28 12:13] LABS: TOTAL PROTEIN 7.3 GM/DL (6.4-8.2)
[2022-03-28 12:15] LABS: BILIRUBIN,TOTAL 0.6 MG/DL (0.1-1.0)
[2022-03-28] MEDS ORDERED: NS 100 ML (IVPB) BAG IV ONE (12:15)
[2022-03-28] MEDS ORDERED: HOLD METFORMIN - RECEIVED CONTRAST 20 ML VIAL IV SCH (12:15)
[2022-03-28] MEDS ORDERED: IOHEXOL 350 MG/ML 100 ML (OMNIPAQUE 350) VIAL IV ONE (12:15)
[2022-03-28 12:17] LABS: CREATININE SERUM 3.94 MG/DL (0.60-1.30)
[2022-03-28 12:29] LABS: BAND NEUTROPHILS 0 %; BASOPHILS % (MANUAL) 0 %; EOSINOPHILS % (MANUAL) 0 %; LYMPHOCYTES % (MANUAL) 7 %; MONOCYTES % (MANUAL) 21 %; NEUTROPHILS % (MANUAL) 72 %; RBC MORPH NORMAL
[2022-03-28 12:43] LABS: CLARITY,URINE CLEAR; COLOR,URINE YELLOW; GLUCOSE, URINE (UA) TRACE (NEGATIVE); KETONES,URINE 1+ (NEGATIVE); LEUKOCYTE ESTERASE ,URINE NEGATIVE (NEGATIVE); NITRITE,URINE NEGATIVE (NEGATIVE); PH,URINE 5.5 (5-9); PROTEIN,URINE 3+ (NEGATIVE)
[2022-03-28] MEDS ORDERED: LACTATED RINGERS 1,000 ML IV SCH (12:45)
[2022-03-28 12:56] LABS: BACTERIA,URINE NEGATIVE /HPF; BILIRUBIN,URINE 1+ (NEGATIVE)
--- NOTE | 2022-03-28 13:03 | Diagnostic Imaging Report ---
PROCEDURE: CT abdomen and pelvis without contrast. TECHNIQUE: Multiple contiguous axial images were obtained through the abdomen and pelvis without the use of intravenous contrast. Auto Exposure Controls were utilized during the CT exam to meet ALARA standards for radiation dose reduction. INDICATION: Aching weakness, nausea and vomiting. Compared with exam 03/20/2020. FINDINGS: There is mild hepatic steatosis. There may be tiny stones layering dependently within the gallbladder. No bile duct dilatation. No secondary features of cholecystitis. Spleen, adrenals and pancreas unremarkable. There is no hydroureteronephrosis. No radiopaque urinary tract calculi. There is no appendicitis or diverticulitis. There is mild rectal constipation. The rectum stool containing distended to measure 6.1 cm. There were, however no findings of proctitis or perirectal edema. There has been apparent previous appendectomy. The aortoiliac vessels nonaneurysmal. There is no ascites, abscess, hematoma or acute fluid collection. No pneumatosis. No free gas. IMPRESSION: Rectal constipation without obstruction, fatty liver without biliary dilatation or pancreatitis, probable tiny stones within the gallbladder lumen without secondary features of cholecystitis. Dictated by: Dictated on workstation # [id number]
[2022-03-28] MEDS ORDERED: PROMETHAZINE INJ 25 MG/ML (PHENERGAN) AMP IVP ONE (14:00)
[2022-03-28] MEDS ORDERED: PIPERACILLIN SODIUM/TAZOBACTAM 4.5 GM in NS (IVPB) 100 ML IV ONE (14:30)
[2022-03-28] MEDS ORDERED: ACETAMINOPHEN 325 MG TABLET PO ONE (14:45)
[2022-03-28] MEDS ORDERED: ONDA4TAB11 SL (15:26)
[2022-03-28] MEDS ORDERED: PROM25SU44 RC (15:26)
[2022-03-28 15:57] VITALS: BP 163/99
== END 2022-03-28 15:57 | disposition home or self-care (01) ==
LOC: EDUNIT# 11:30 → ER 11:33
DX: I12.9 Hypertensive chronic kidney disease with stage 1 through stage 4 chronic kidney disease, or unspecified chronic kidney disease (principal); E11.22 Type 2 diabetes mellitus with diabetic chronic kidney disease; N18.9 Chronic kidney disease, unspecified; Z79.4 Long term (current) use of insulin
CPT/HCPCS: 36415; 74176; 80053; 81000; 82010; 83690; 85007; 85027

== ENCOUNTER 2022-06-04 12:16 | Inpatient (IN) | payer MEDICARE, MEDICAID ==
[2022-06-04] VITALS (8 sets, daily range): BP systolic 138–168; BP diastolic 87–106
[~2022-06-04] VITALS: Ht 177 cm; Wt 85.0 kg
[~2022-06-04 12:16] MED LIST changes: +ONDA4TAB11 SL; +PROM25SU44 RC
[2022-06-04] MEDS ORDERED: ONDANSETRON 4 MG/2 ML (SDV) Z0FRAN IVP ONE (12:45)
--- NOTE | 2022-06-04 12:55 | ED General ---
General Chief Complaint: Cough/Cold/Flu Symptoms Stated Complaint: COUGH HEADACHE VOMITING Nursing Triage Note: PT AMB TO RM 8 PT CO OF COUGH PEDRAZA, N/V. PT IS AN IDDM STATES PRESENT SUGAR 214 Source of Information: Patient Exam Limitations: No Limitations (SARA BELLO APRN) History of Present Illness Date Seen by Provider: Jun 04, 2022 Time Seen by Provider: 12:20 Initial Comments 36-year-old male presents to the ED with complaints of headache for the last month, pain is located in his forehead. States that when the headache first started, his left arm was numb for about a day and he had shortness of breath. Denies left arm numbness or shortness of breath this time. He reports cough, rhinorrhea and nasal congestion for the last 3 to 4 days. Reports he was vomiting all night last night, approximately every 10 to 15 minutes. States he has vomited 3-4 times a day. He is a type I diabetic, states his blood sugars have been in the 200s. He has high blood pressure, and has been out of his meds for 3 days, does not know the name of his medications. He was found to have a low-grade temperature here, he states that he did not know he had a fever. Denies dizziness, shortness of air, abdominal pain. (SARA BELLO APRN) Allergies and Home Medications Allergies Uncoded Allergies: STEROID (Adverse Reaction, Unknown, 'CHEST FELT TIGHT', 11/28/14) Patient Home Medication List Home Medication List Reviewed: Yes (SARA BELLO APRN) Insulin Aspart (Novolog) 100 Unit/Ml Susp, UNIT SQ PER PUMP, (Reported) Entered as Reported by: VIOLA FALL on 12/14/20 1001 Last Action: Reviewed Discontinued Medications Acetaminophen (Tylenol) 325 Mg Tablet, 650 MG PO Q8H PRN for PAIN-MILD (1-4), (Reported) Discontinued Reason: No Longer Taking Entered as Reported by: VIOLA FALL on 11/29/21 1152 Last Action: Discontinued Amlodipine Besylate (Amlodipine Besylate) 10 Mg Tablet, 5 MG PO HS, (Reported) Discontinued Reason: No Longer Taking Entered as Reported by: VIOLA FALL on 12/14/20 1001 Last Action: Discontinued Atorvastatin Calcium (Atorvastatin Calcium) 20 Mg Tablet, 20 MG PO HS, (Reported) Discontinued Reason: No Longer Taking Entered as Reported by: VIOLA FALL on 11/29/211151 Last Action: Discontinued Furosemide (Furosemide) 20 Mg Tablet, 20 MG PO DAILY, (Reported) Discontinued Reason: No Longer Taking Entered as Reported by: KAVITHA TUCKER on 11/28/212144 Last Action: Discontinued Gabapentin (Neurontin) 300 Mg Capsule, 300 MG PO HS, (Reported) Discontinued Reason: No Longer Taking Entered as Reported by: VIOLA FALL on 11/29/21 115 Last Action: Discontinued Losartan Potassium (Losartan Potassium) 100 Mg Tablet, 100 MG PO DAILY, (Reported) Discontinued Reason: No Longer Taking Entered as Reported by: KAVITHA TUCKER on 11/28/212144 Last Action: Discontinued Metoprolol Succinate (Metoprolol Succinate) 100 Mg Tab.er.24h, 100 MG PO DAILY, (Reported) Discontinued Reason: No Longer Taking Entered as Reported by: KAVITHA TUCKER on 11/28/212144 Last Action: Discontinued Ondansetron (Ondansetron Odt) 4 Mg Tab.rapdis, 4 MG SL Q4H PRN for NAUSEA/VOMITING Discontinued Reason: No Longer Taking Prescribed by: Daniel Rene on 03/28/221525 Last Action: Discontinued Pantoprazole Sodium (Pantoprazole Sodium) 40 Mg Tablet.dr, 40 MG PO DAILY, (Reported) Discontinued Reason: No Longer Taking Entered as Reported by: VIOLA FALL on 12/14/20 1001 Last Action: Discontinued Promethazine HCl (Promethazine Suppository) 25 Mg Supp.rect, 25 MG RC Q6H PRN for NAUSEA/VOMITING-2ND LINE Discontinued Reason: No Longer Taking Prescribed by: Daniel Rene on 03/28/221525 Last Action: Discontinued Sodium Bicarbonate (Sodium Bicarbonate) 650 Mg Tablet, 650 MG PO BID, (Reported) Discontinued Reason: No Longer Taking Entered as Reported by: KAVITHA TUCKER on 11/28/212144 Last Action: Discontinued Review of Systems Review of Systems Constitutional: see HPI (SARA BELLO APRN) Past Bxptefm-Riazqh-Zqkvcy Hx Patient Social History Tobacco Use?: No Substance use?: No Alcohol Use?: No Pt feels they are or have been: No (SARA BELLO APRN) Immunizations Up To Date Tetanus Booster (TDap): Less than 5yrs Influenza Vaccine Up-to-Date: Yes; Up-to-Date First/Initial COVID19 Vaccinat: 2020 Second COVID19 Vaccination Marcelo: 2020 Third COVID19 Vaccination Date: 2020 (SARA BELLO APRN) Past Medical History Surgery/Hospitalization HX: IDDM, RENAL FAILURE APPENDECTOMY Surgeries: Yes Orthopedic Respiratory: No Currently Using CPAP: No Currently Using BIPAP: No Cardiac: Yes Hypertension Neurological: No Reproductive Disorders: No Genitourinary: No Renal Failure Gastrointestinal: No Musculoskeletal: No Endocrine: Yes Diabetes, Insulin dep Cancer: No Psychosocial: No Integumentary: No Blood Disorders: No Adverse Reaction/Blood Tranf: No (SARA BELLO APRN) Family Medical History No Pertinent Family Hx (SARA BELLO APRN) Physical Exam Vital Signs Vital Signs - First Documented 06/04/22 12:25 Temp 37.8 Pulse 125 Resp 28 B/P (MAP) 205/119 (147) Pulse Ox 93 (DYLON RECINOS DO) Vital Signs Capillary Refill : Less Than 3 Seconds (SARA BELLO APRN) Height, Weight, BMI Height: 5'9.00" Weight: 150lbs. 0.0oz. [id number]; 26.00 BMI Method:Stated General Appearance: Moderate Distress HEENT: TMs Normal, Other (frontal sinues tender to palpation) Neck: Full Range of Motion, Normal Inspection Respiratory: Lungs Clear, Normal Breath Sounds, No Accessory Muscle Use, No Respiratory Distress Cardiovascular: Regular Rate, Rhythm, No Edema, No Gallop, No JVD, No Murmur Gastrointestinal: Normal Bowel Sounds, No Organomegaly, No Pulsatile Mass, Non Tender, Soft Extremity: Normal Inspection, Normal Range of Motion Neurologic/Psychiatric: Alert, Oriented x3, Normal Mood/Affect Skin: Normal Color, Warm/Dry (SARA BELLO APRN) Focused Exam Lactate Level 06/04/22 15:10: Lactic Acid Level 2.28*H 06/04/22 17:30: Lactic Acid Level 2.86*H (GRISELDYLON K DO) Lactic Acid Level Laboratory Tests Test 06/04/22 12:55 06/04/22 15:10 06/04/22 17:30 Lactic Acid Level 2.77 MMOL/L (0.50-2.00) *H 2.28 MMOL/L (0.50-2.00) *H 2.86 MMOL/L (0.50-2.00) *H (DYLON RECINOS DO) Progress/Results/Core Measures Suspected Sepsis SIRS Temperature: Pulse: 125 Respiratory Rate: 28 Laboratory Tests 06/04/22 12:55: White Blood Count 14.1H Blood Pressure 205 /119 Mean: 147 06/04/22 15:10: Lactic Acid Level 2.28*H 06/04/22 17:30: Lactic Acid Level 2.86*H Laboratory Tests 06/04/22 12:55: Creatinine 5.14H, INR Comment 1.1, Platelet Count 178, Total Bilirubin 0.8 06/04/22 16:45: Creatinine 4.71#H, Total Bilirubin 0.4 (SARA BELLO APRN) Results/Orders Lab Results Laboratory Tests Test 06/04/22 12:30 06/04/22 12:55 06/04/22 13:36 06/04/22 15:10 Range/Units Influenza Type A (RT-PCR) Not Detected Not Detecte Influenza Type B (RT-PCR) Not Detected Not Detecte SARS-CoV-2 RNA (RT-PCR) Not Detected Not Detecte White Blood Count 14.1 H 4.3-11.0 10^3/uL Red Blood Count 4.14 L 4.30-5.52 10^6/uL Hemoglobin 12.8 L 13.3-17.7 g/dL Hematocrit 38 L 40-54 % Mean Corpuscular Volume 92 80-99 fL Mean Corpuscular Hemoglobin 31 25-34 pg Mean Corpuscular Hemoglobin Concent 34 32-36 g/dL Red Cell Distribution Width 14.6 H 10.0-14.5 % Platelet Count 178 130-400 10^3/uL Mean Platelet Volume 9.6 9.0-12.2 fL Immature Granulocyte % (Auto) 1 % Neutrophils (%) (Auto) 87 H 42-75 % Lymphocytes (%) (Auto) 5 L 12-44 % Monocytes (%) (Auto) 7 0-12 % Eosinophils (%) (Auto) 0 0-10 % Basophils (%) (Auto) 0 0-10 % Neutrophils # (Auto) 12.2 H 1.8-7.8 10^3/uL Lymphocytes # (Auto) 0.7 L 1.0-4.0 10^3/uL Monocytes # (Auto) 1.0 0.0-1.0 10^3/uL Eosinophils # (Auto) 0.0 0.0-0.3 10^3/uL Basophils # (Auto) 0.0 0.0-0.1 10^3/uL Immature Granulocyte # (Auto) 0.1 0.0-0.1 10^3/uL Neutrophils % (Manual) 64 % Lymphocytes % (Manual) 9 % Monocytes % (Manual) 5 % Metamyelocytes % 3 % Band Neutrophils 18 % Atypical Lymphocytes 1 % Poikilocytosis SLIGHT Prothrombin Time 14.2 12.2-14.7 SEC INR Comment 1.1 0.8-1.4 Activated Partial Thromboplast Time 34 24-35 SEC Venous Blood pH 7.37 7.31-7.41 Venous Blood Partial Pressure CO2 40 40-52 MMHG Venous Blood HCO3 23 22-28 MMOL/L Sodium Level 135 135-145 MMOL/L Potassium Level 4.1 3.6-5.0 MMOL/L Chloride Level 100 98-107 MMOL/L Carbon Dioxide Level 16 L 21-32 MMOL/L Anion Gap 19 H 5-14 MMOL/L Blood Urea Nitrogen 35 H 7-18 MG/DL Creatinine 5.14 H 0.60-1.30 MG/DL Estimat Glomerular Filtration Rate 14 BUN/Creatinine Ratio 7 Glucose Level 239 H 70-105 MG/DL Lactic Acid Level 2.77 *H 2.28 *H 0.50-2.00 MMOL/L Calcium Level 8.2 L 8.5-10.1 MG/DL Corrected Calcium 9.0 8.5-10.1 MG/DL Phosphorus Level 5.1 H 2.3-4.7 MG/DL Magnesium Level 1.8 1.6-2.4 MG/DL Total Bilirubin 0.8 0.1-1.0 MG/DL Aspartate Amino Transf (AST/SGOT) 38 H 5-34 U/L Alanine Aminotransferase (ALT/SGPT) 24 0-55 U/L Alkaline Phosphatase 73 40-136 U/L Troponin I 0.258 H <0.028 NG/ML Total Protein 5.7 L 6.4-8.2 GM/DL Albumin 3.0 L 3.2-4.5 GM/DL Lipase 5 L 8-78 U/L Beta-Hydroxybutyrate (Chem panel) 2.03 H 0.00-0.27 MMOL/L Procalcitonin 23.12 H <0.10 NG/ML Urine Color YELLOW Urine Clarity CLEAR Urine pH 6.0 5-9 Urine Specific [place] 1.020 1.016-1.022 Urine Protein 3+ H NEGATIVE Urine Glucose (UA) 2+ H NEGATIVE Urine Ketones 1+ H NEGATIVE Urine Nitrite NEGATIVE NEGATIVE Urine Bilirubin NEGATIVE NEGATIVE Urine Urobilinogen 0.2 < = 1.0 MG/DL Urine Leukocyte Esterase NEGATIVE NEGATIVE Urine RBC (Auto) 2+ H NEGATIVE Urine RBC 5-10 H /HPF Urine WBC 0-2 /HPF Urine Squamous Epithelial Cells 0-2 /HPF Urine Crystals PRESENT H /LPF Urine Amorphous Sediment MOD GRACE URATES H /LPF Urine Bacteria FEW H /HPF Urine Casts PRESENT /LPF Urine Hyaline Casts 5-10 H /LPF Urine Mucus SMALL H /LPF Urine Culture Indicated CULTURE PENDING Test 06/04/22 16:45 06/04/22 17:30 Range/Units Venous Blood pH 7.34 7.31-7.41 Venous Blood Partial Pressure CO2 38 L 40-52 MMHG Venous Blood HCO3 20 L 22-28 MMOL/L Sodium Level 135 135-145 MMOL/L Potassium Level 3.5 L 3.6-5.0 MMOL/L Chloride Level 105 98-107 MMOL/L Carbon Dioxide Level 15 L 21-32 MMOL/L Anion Gap 15 H 5-14 MMOL/L Blood Urea Nitrogen 35 H 7-18 MG/DL Creatinine 4.71 #H 0.60-1.30 MG/DL Estimat Glomerular Filtration Rate 15 BUN/Creatinine Ratio 7 Glucose Level 258 H 70-105 MG/DL Calcium Level 7.1 L 8.5-10.1 MG/DL Corrected Calcium 8.3 L 8.5-10.1 MG/DL Total Bilirubin 0.4 0.1-1.0 MG/DL Aspartate Amino Transf (AST/SGOT) 32 5-34 U/L Alanine Aminotransferase (ALT/SGPT) 22 0-55 U/L Alkaline Phosphatase 57 40-136 U/L Total Protein 4.5 L 6.4-8.2 GM/DL Albumin 2.5 L 3.2-4.5 GM/DL Lactic Acid Level 2.86 *H 0.50-2.00 MMOL/L (GRISELDYLON K DO) Micro Results Microbiology 06/04/22 Blood Culture - Preliminary, Resulted No growth 06/04/22 Urine Culture - Final, Complete Growth Consistent 06/04/22 Blood Culture - Preliminary, Resulted No growth (GRISEL,DYLON K DO) Vital Signs/I&O 06/04/22 12:25 Temp 37.8 Pulse 125 Resp 28 B/P (MAP) 205/119 (147) Pulse Ox 93 06/05/22 00:00 Intake Total 2300 ml Balance 2300 ml (GRISEL,DYLON K DO) Vital Signs/I&O Capillary Refill : Less Than 3 Seconds (SARA BELLO APRN) Blood Pressure Mean: 147 Progress Note #1: Time: 12:55 Progress Note Patient seen and evaluated, sitting on bed, moderate distress. Based on exam and symptoms, differential diagnosis includes but is not limited to sepsis, DKA, sinusitis, COVID/flu, pneumonia. Work-up initiated, CBC, CMP, lipase, lactic acid, blood cultures x2, chest x-ray, urinalysis, phosphorus, magnesium. IV fluids and nausea medicine ordered. Progress Note #2: Time: 13:55 Progress Note Labs reviewed. Elevated white blood cell count at 14.1, hemoglobin 12.8, this i s better than previous, hematocrit 38, neutrophil 87. Venous pH 7.37. CBC shows low CO2 of 16, elevated gap at 19, elevated BUN 35, creatinine 5.14, GFR 14, glucose 239, calcium 8.2, phosphorus 5.1, protein 5.7, albumin 3.0. Beta hydroxybutyrate 2.03. Coags normal. Urine negative for infection, 1+ ketones, 3+ protein, 2+ glucose, 2+ RBCs. Flu/COVID-negative. Troponin 0.258, Dr. Wright consulted. Lactic acid elevated 2.77, procalcitonin elevated at 23.12. Progress Note #3: Time: 14:55 Progress Note X-ray report reviewed. Shows bilateral airspace opacities suspicious for pneumonitis. Patient appears to be septic, will treat for pneumonia. Will call [facility] for transfer due to elevated creatinine. Progress Note #4: Time: 16:39 Progress Note Will repeat CMP and venous blood gas before starting insulin drip. Progress Note #5: Time: 17:47 Progress Note CMP shows gap down to 15. Creatinine down to 4.71. We will call Dr. Pretty to see if patient can be admitted to here instead. (SARA BELLO APRN) ECG Initial ECG Impression Date: Jun 04, 2022 Initial ECG Impression Time: 12:58 Initial ECG Rhythm: S.Tach Initial ECG Intervals: Normal Initial ECG Comparisson: Changed Comment New T wave inversions in lead I, II, aVR, aVL, V1, V3, V4, V5, V6. No ST depression or elevation. No significant Q waves. (SARA BELLO APRN) Diagnostic Imaging Diagonstic Imaging: Xray Plain Films/CT/US/NM/MRI: chest Comments [facility], [place] NAME: SUSHMA OZUNA [facility] REC#: [id number] PT STATUS: REG ER : 1985 PHYSICIAN: SARA BELLO APRN ADMIT DATE: 06/04/22/ER Signed Date of Exam:06/04/22 CHEST 1 VIEW, AP/PA ONLY EXAM: CHEST 1 VIEW, AP/PA ONLY INDICATION: Cough. Fever. COMPARISON: 12/13/2020. FINDINGS: New bilateral patchy airspace opacities. No pleural effusion or pneumothorax. Normal heart size and central pulmonary vascularity. No acute osseous findings. IMPRESSION: New bilateral airspace opacities suspicious for pneumonitis. Recommend follow-up to resolution. Dictated by: Dictated on workstation # [id number] Dict: 06/04/22 1347 Trans: 06/04/22 1521 [facility] [id number] Interpreted by: ROSY WEN MD Electronically signed by: ROSY WEN MD 06/04/22 1521 (SARA BELLO APRN) Departure Communication (Admissions) Time/Spoke to Admitting Phy: 17:[address] Pretty, hospitalist, regarding admission. She agrees to admit patient as long as cardiology is okay with patient staying here. Spoke again with Dr. Wright, he is okay with patient staying and doing serial troponins. Time/Spoke to Consulting Phy: 13:[address] Wright, senior business manager, regarding patient's elevated troponin and abnormal EKG. Since patient's creatinine is greater than 5, patient will have to be transferred to another facility that has nephrology. (SARA BELLO APRN) Impression Primary Impression: Pneumonia Additional Impressions: Acute kidney injury superimposed on chronic kidney disease Sepsis Elevated troponin I level Disposition: ADMITTED INPATIENT Condition: Stable Admissions Decision to Admit Reason: Admit from ER (General) Decision to Admit/Date: Jun 04, 2022 Time/Decision to Admit Time: 17:49 (SARA BELLO APRN) Transfer Transfer Reason: Exceeds level of care Time Spoke to Accepting Phy: 15:02 Transfer Progress Notes Spoke with Dr. Luna, hospitalist at [facility], regarding transfer. Dr. Luna excepted patient. Transfer Facility: [facility] (SARA BELLO APRN) Departure-Patient Inst. Referrals: DIONNE FORRESTER DO (PCP/Family) Primary Care Physician ATTENDING PHYSICIAN NOTE: I WAS PHYSICALLY PRESENT ER PHYSICIAN, BUT I WAS NOT INVOLVED IN ANY DECISION MAKING OR ANY CARE OF THIS PATIENT, AND I AM NOT COLLABORATING PHYSICIAN. (DYLON RECINOS DO) SARA BELLO APRN Jun 04, 2022 12:55 DYLON RECINOS DO Jun 05, 2022 17:37
[2022-06-04 13:06] LABS: BASOPHILS % (AUTO) 0 % (0-10); EOSINOPHILS % (AUTO) 0 % (0-10); HEMATOCRIT 38 % (40-54); HEMOGLOBIN 12.8 g/dL (13.3-17.7); LYMPHOCYTES # (AUTO) 0.7 10^3/uL (1.0-4.0); LYMPHOCYTES % (AUTO) 5 % (12-44); MEAN CORPUSCULAR HEMOGLOBIN 31 pg (25-34); MEAN CORPUSCULAR HGB CONC 34 g/dL (32-36); MEAN CORPUSCULAR VOLUME 92 fL (80-99); MEAN PLATELET VOLUME 9.6 fL (9.0-12.2); MONOCYTES % (AUTO) 7 % (0-12); NEUTROPHILS # (AUTO) 12.2 10^3/uL (1.8-7.8); NEUTROPHILS % (AUTO) 87 % (42-75); PLATELET COUNT 178 10^3/uL (130-400); WHITE BLOOD COUNT 14.1 10^3/uL (4.3-11.0)
[2022-06-04] MEDS: NS IV 1000 ML 1,000 ML IV SCH ×3 (13:10→21:49)
[2022-06-04 13:16] LABS: INR 1.1 (0.8-1.4); PROTHROMBIN TIME PATIENT 14.2 SEC (12.2-14.7)
[2022-06-04 13:28] LABS: BILIRUBIN,TOTAL 0.8 MG/DL (0.1-1.0); CALCIUM 8.2 MG/DL (8.5-10.1); CREATININE SERUM 5.14 MG/DL (0.60-1.30); MAGNESIUM 1.8 MG/DL (1.6-2.4); PHOSPHORUS 5.1 MG/DL (2.3-4.7); POTASSIUM 4.1 MMOL/L (3.6-5.0); TOTAL PROTEIN 5.7 GM/DL (6.4-8.2)
[2022-06-04] MEDS ORDERED: LABETALOL HCL 20 MG/4 ML VIAL IV ONE (13:30)
[2022-06-04 13:49] LABS: BILIRUBIN,URINE NEGATIVE (NEGATIVE); CLARITY,URINE CLEAR; COLOR,URINE YELLOW; GLUCOSE, URINE (UA) 2+ (NEGATIVE); KETONES,URINE 1+ (NEGATIVE); LEUKOCYTE ESTERASE ,URINE NEGATIVE (NEGATIVE); NITRITE,URINE NEGATIVE (NEGATIVE); PROTEIN,URINE 3+ (NEGATIVE)
[2022-06-04] MEDS ORDERED: ACETAMINOPHEN 500 MG TAB (TYLENOL) PO ONE (14:00)
[2022-06-04 14:11] LABS: AMORPHOUS SEDIMENT,UR MOD AMOR URATES /LPF; BACTERIA,URINE FEW /HPF; SQUAMOUS EPITHELIAL CELL,UR 0-2 /HPF; WBC,URINE 0-2 /HPF
[2022-06-04 14:23] LABS: ATYPICAL LYMPHOCYTES 1 %; BAND NEUTROPHILS 18 %; LYMPHOCYTES % (MANUAL) 9 %; METAMYELOCYTES % 3 %; MONOCYTES % (MANUAL) 5 %; NEUTROPHILS % (MANUAL) 64 %; POIKILOCYTOSIS SLIGHT
--- NOTE | 2022-06-04 14:25 | Diagnostic Imaging Report ---
EXAM: CHEST 1 VIEW, AP/PA ONLY INDICATION: Cough. Fever. COMPARISON: 12/13/2020. FINDINGS: New bilateral patchy airspace opacities. No pleural effusion or pneumothorax. Normal heart size and central pulmonary vascularity. No acute osseous findings. IMPRESSION: New bilateral airspace opacities suspicious for pneumonitis. Recommend follow-up to resolution. Dictated by: Dictated on workstation # [id number]
[2022-06-04] MEDS: cefTRIAXone 1 GM PRE-MIX 50 ML IV SCH (15:43)
[2022-06-04] MEDS: AZITHROMYCIN INJECTION 500 MG in NS (IVPB) 250 ML IV SCH (16:21)
--- NOTE | 2022-06-04 16:23 | Diagnostic Imaging Report ---
PROCEDURE: CT head without contrast. TECHNIQUE: Multiple contiguous axial images were obtained through the brain without the use of intravenous contrast. Auto Exposure Controls were utilized during the CT exam to meet ALARA standards for radiation dose reduction. INDICATION: Headache. COMPARISON: None available. FINDINGS: No hyperdense hemorrhage or space-occupying mass. No hydrocephalus or midline shift. The basilar cisterns are normal. Tolliver-white matter differentiation is well preserved. The mastoid air cells are clear. Paranasal sinuses are normal. No focal osseous abnormality of the calvarium. IMPRESSION: 1. No acute intracranial process. Dictated by: Dictated on workstation # [id number]
[2022-06-04] MEDS ORDERED: D5 1/2 NS 1000 ML IV SOLUTION 1,000 ML IV SCH (16:45)
[2022-06-04 17:15] LABS: ALBUMIN 2.5 GM/DL (3.2-4.5); BILIRUBIN,TOTAL 0.4 MG/DL (0.1-1.0); CALCIUM 7.1 MG/DL (8.5-10.1); CREATININE SERUM 4.71 MG/DL (0.60-1.30); POTASSIUM 3.5 MMOL/L (3.6-5.0); TOTAL PROTEIN 4.5 GM/DL (6.4-8.2)
--- NOTE | 2022-06-04 18:25 | Tele-ICU Consult ---
Progress Note 36 y/o male with typle I DM presents to ED with headache cough and rhinorhea. Influenza A , B and Covid all negative WBC: 14.1 Lactate: 2.87 Procal: 23 CXR: bilateral opacities suggesting PNA IMP: sepsis, secondary to PNA PLAN: patient was cultured in ED and started on ceftriaxone Focused Exam Lactate Level 06/04/22 12:55: Lactic Acid Level 2.77*H 06/04/22 15:10: Lactic Acid Level 2.28*H 06/04/22 17:30: Lactic Acid Level 2.86*H Height, Weight, BMI Height: 5'9.00" Weight: 150lbs. 0.0oz. 68.550024ik; 26.00 BMI Method:Stated Lactic Acid Level Laboratory Tests Test 06/04/22 15:10 06/04/22 17:30 Lactic Acid Level 2.28 MMOL/L (0.50-2.00) *H 2.86 MMOL/L (0.50-2.00) *H Labs Laboratory Tests 06/04/22 12:55 06/04/22 16:45 Results Results/Procedures Labs Laboratory Tests 06/04/22 12:55 06/04/22 16:45 Patient resulted labs reviewed. Results Results/Procedures Lab Laboratory Tests 06/04/22 12:55 06/04/22 16:45 Results Labs Labs Laboratory Tests 06/04/22 12:30: Influenza Type A (RT-PCR) Not Detected, Influenza Type B (RT-PCR) Not Detected, SARS-CoV-2 RNA (RT-PCR) Not Detected 06/04/22 12:55: White Blood Count 14.1H, Red Blood Count 4.14L, Hemoglobin 12.8L, Hematocrit 38L , Mean Corpuscular Volume 92, Mean Corpuscular Hemoglobin 31, Mean Corpuscular Hemoglobin Concent 34, Red Cell Distribution Width 14.6H, Platelet Count 178, Mean Platelet Volume 9.6, Immature Granulocyte % (Auto) 1, Neutrophils (%) ( Auto) 87H, Lymphocytes (%) (Auto) 5L, Monocytes (%) (Auto) 7, Eosinophils (%) (Auto) 0, Basophils (%) (Auto) 0, Neutrophils # (Auto) 12.2H, Lymphocytes # (Auto) 0.7L, Monocytes # (Auto) 1.0, Eosinophils # (Auto) 0.0, Basophils # (Auto) 0.0, Immature Granulocyte # (Auto) 0.1, Neutrophils % (Manual) 64, Lymphocytes % (Manual) 9, Monocytes % (Manual) 5, Metamyelocytes % 3, Band Neutrophils 18, Atypical Lymphocytes 1, Poikilocytosis SLIGHT, Prothrombin Time 14.2, INR Comment 1.1, Activated Partial Thromboplast Time 34, Venous Blood pH 7.37, Venous Blood Partial Pressure CO2 40, Venous Blood HCO3 23, Sodium Level 135, Potassium Level 4.1, Chloride Level 100, Carbon Dioxide Level 16L, Anion G ap 19H, Blood Urea Nitrogen 35H, Creatinine 5.14H, Estimat Glomerular Filtration Rate 14, BUN/Creatinine Ratio 7, Glucose Level 239H, Lactic Acid Level 2.77*H, Calcium Level 8.2L, Corrected Calcium 9.0, Phosphorus Level 5.1H, Magnesium Level 1.8, Total Bilirubin 0.8, Aspartate Amino Transf (AST/SGOT) 38H, Alanine Aminotransferase (ALT/SGPT) 24, Alkaline Phosphatase 73, Troponin I 0.258H, Total Protein 5.7L, Albumin 3.0L, Lipase 5L, Beta-Hydroxybutyrate (Chem panel) 2.03H, Procalcitonin 23.12H 06/04/22 13:36: Urine Color YELLOW, Urine Clarity CLEAR, Urine pH 6.0, Urine Specific [place] 1.020, Urine Protein 3+H, Urine Glucose (UA) 2+H, Urine Ketones 1+H, Urine Nitrite NEGATIVE, Urine Bilirubin NEGATIVE, Urine Urobilinogen 0.2, Urine Leukocyte Esterase NEGATIVE, Urine RBC (Auto) 2+H, Urine RBC 5-10H, Urine WBC 0- 2, Urine Squamous Epithelial Cells 0-2, Urine Crystals PRESENTH, Urine Amorphous Sediment MOD GRACE URATESH, Urine Bacteria FEWH, Urine Casts PRESENT, Urine Hyaline Casts 5-10H, Urine Mucus SMALLH, Urine Culture Indicated CULTURE PENDING 06/04/22 15:10: Lactic Acid Level 2.28*H 06/04/22 16:45: Venous Blood pH 7.34, Venous Blood Partial Pressure CO2 38L, Venous Blood HCO3 20L, Sodium Level 135, Potassium Level 3.5L, Chloride Level 105, Carbon Dioxide Level 15L, Anion Gap 15H, Blood Urea Nitrogen 35H, Creatinine 4.71#H, Estimat Glomerular Filtration Rate 15, BUN/Creatinine Ratio 7, Glucose Level 258H, Calcium Level 7.1L, Corrected Calcium 8.3L, Total Bilirubin 0.4, Aspartate Amino Transf (AST/SGOT) 32, Alanine Aminotransferase (ALT/SGPT) 22, Alkaline Phosphatase 57, Total Protein 4.5L, Albumin 2.5L 06/04/22 17:30: Lactic Acid Level 2.86*H TIMA JIN MD Jun 04, 2022 18:25
[2022-06-04] MEDS ORDERED: NS IV 1000 ML 1,000 ML ONE (18:56)
[2022-06-04] MEDS ORDERED: PROCHLORPERAZINE 10 MG/2ML INJ (COMPAZINE) IV PRN (21:30)
[2022-06-04] MEDS: ACETAMINOPHEN 500 MG TAB (TYLENOL) PO PRN (21:57)
[2022-06-05] VITALS (9 sets, daily range): BP systolic 123–167; BP diastolic 80–117
[2022-06-05 04:16] LABS: BASOPHILS % (AUTO) 0 % (0-10); EOSINOPHILS % (AUTO) 0 % (0-10); HEMATOCRIT 31 % (40-54); HEMOGLOBIN 10.5 g/dL (13.3-17.7); LYMPHOCYTES # (AUTO) 2.1 10^3/uL (1.0-4.0); LYMPHOCYTES % (AUTO) 14 % (12-44); MEAN CORPUSCULAR HEMOGLOBIN 31 pg (25-34); MEAN CORPUSCULAR HGB CONC 34 g/dL (32-36); MEAN CORPUSCULAR VOLUME 92 fL (80-99); MEAN PLATELET VOLUME 10.2 fL (9.0-12.2); MONOCYTES # (AUTO) 0.8 10^3/uL (0.0-1.0); MONOCYTES % (AUTO) 5 % (0-12); NEUTROPHILS # (AUTO) 11.7 10^3/uL (1.8-7.8); NEUTROPHILS % (AUTO) 80 % (42-75); PLATELET COUNT 159 10^3/uL (130-400); WHITE BLOOD COUNT 14.6 10^3/uL (4.3-11.0)
[2022-06-05 04:27] LABS: POTASSIUM 3.5 MMOL/L (3.6-5.0)
[2022-06-05 04:28] LABS: CALCIUM 7.2 MG/DL (8.5-10.1)
[2022-06-05] MEDS: NS IV 1000 ML 1,000 ML IV SCH ×2 (04:56→15:15)
[2022-06-05] MEDS: RT-ALBUTEROL SULF 2.5 MG/3 ML PRE-MIX VIAL INH SCH ×5 (06:55→23:20)
[2022-06-05] MEDS: SODIUM BICARBONATE 650 MG TABLET PO SCH ×3 (08:49→21:42)
[2022-06-05] MEDS: AZITHROMYCIN INJECTION 500 MG in NS (IVPB) 250 ML IV SCH (08:50)
[2022-06-05] MEDS: ACETAMINOPHEN 500 MG TAB (TYLENOL) PO PRN ×2 (08:53→17:54)
--- NOTE | 2022-06-05 09:00 | Consultation-Cardiology ---
HPI-Cardiology Cardiology Consultation Date of Consultation 06/05/22 Date of Admission Time Seen by Provider: 08:55 Indication: Chest pain HPI 36-year-old gentleman with history of diabetes mellitus, chronic kidney disease. Has been having headache for the past months. Having cough nonproductive, started to have chest pain usually with coughing and deep inspiration, reproducible pain. His headache continued to get worse, came into the emergency room for evaluation noted to have elevation in troponin. On my evaluation was laying down comfortably, still having some cough and chest pain on coughing. Home Medications & Allergies Allergies: Uncoded Allergies: STEROID (Adverse Reaction, Unknown, 'CHEST FELT TIGHT', 11/28/14) Home Medication List Reviewed: Yes IOP-Jixjaa-Pkkofh Hx Patient Social History Employed/Student: unemployed Smoking Status: Never a Smoker Type Used: Smokeless Tobacco 2nd Hand Smoke Exposure: No Recent Hopitalizations: Yes Have you traveled recently?: No Alcohol Use?: Yes Immunizations Up To Date Tetanus Booster (TDap): Less than 5yrs Date of Influenza Vaccine: Jan 02, 2023 Past Medical History Discussed below Family Medical History Significant Family History: No Pertinent Family Hx Review of Systems-General Review of Systems Constitutional: see HPI, malaise, weakness EENTM: see HPI, other (Headache) Respiratory: see HPI, cough, dyspnea on exertion; No hemoptysis, No orthopnea, No phlegm, No short of breath, No stridor, No wheezing, No other Cardiovascular: see HPI, chest pain Gastrointestinal: see HPI Genitourinary: see HPI Musculoskeletal: see HPI Skin: see HPI Psychiatric/Neurological: See HPI Reviewed Test Results Reviewed Test Results Lab Laboratory Tests Test 06/04/22 12:30 06/04/22 12:55 06/04/22 13:36 06/04/22 15:10 Range/Units Influenza Type A (RT-PCR) Not Detected Not Detecte Influenza Type B (RT-PCR) Not Detected Not Detecte SARS-CoV-2 RNA (RT-PCR) Not Detected Not Detecte White Blood Count 14.1 H 4.3-11.0 10^3/uL Red Blood Count 4.14 L 4.30-5.52 10^6/uL Hemoglobin 12.8 L 13.3-17.7 g/dL Hematocrit 38 L 40-54 % Mean Corpuscular Volume 92 80-99 fL Mean Corpuscular Hemoglobin 31 25-34 pg Mean Corpuscular Hemoglobin Concent 34 32-36 g/dL Red Cell Distribution Width 14.6 H 10.0-14.5 % Platelet Count 178 130-400 10^3/uL Mean Platelet Volume 9.6 9.0-12.2 fL Immature Granulocyte % (Auto) 1 % Neutrophils (%) (Auto) 87 H 42-75 % Lymphocytes (%) (Auto) 5 L 12-44 % Monocytes (%) (Auto) 7 0-12 % Eosinophils (%) (Auto) 0 0-10 % Basophils (%) (Auto) 0 0-10 % Neutrophils # (Auto) 12.2 H 1.8-7.8 10^3/uL Lymphocytes # (Auto) 0.7 L 1.0-4.0 10^3/uL Monocytes # (Auto) 1.0 0.0-1.0 10^3/uL Eosinophils # (Auto) 0.0 0.0-0.3 10^3/uL Basophils # (Auto) 0.0 0.0-0.1 10^3/uL Immature Granulocyte # (Auto) 0.1 0.0-0.1 10^3/uL Neutrophils % (Manual) 64 % Lymphocytes % (Manual) 9 % Monocytes % (Manual) 5 % Metamyelocytes % 3 % Band Neutrophils 18 % Atypical Lymphocytes 1 % Poikilocytosis SLIGHT Prothrombin Time 14.2 12.2-14.7 SEC INR Comment 1.1 0.8-1.4 Activated Partial Thromboplast Time 34 24-35 SEC Venous Blood pH 7.37 7.31-7.41 Venous Blood Partial Pressure CO2 40 40-52 MMHG Venous Blood HCO3 23 22-28 MMOL/L Sodium Level 135 135-145 MMOL/L Potassium Level 4.1 3.6-5.0 MMOL/L Chloride Level 100 98-107 MMOL/L Carbon Dioxide Level 16 L 21-32 MMOL/L Anion Gap 19 H 5-14 MMOL/L Blood Urea Nitrogen 35 H 7-18 MG/DL Creatinine 5.14 H 0.60-1.30 MG/DL Estimat Glomerular Filtration Rate 14 BUN/Creatinine Ratio 7 Glucose Level 239 H 70-105 MG/DL Lactic Acid Level 2.77 *H 2.28 *H 0.50-2.00 MMOL/L Calcium Level 8.2 L 8.5-10.1 MG/DL Corrected Calcium 9.0 8.5-10.1 MG/DL Phosphorus Level 5.1 H 2.3-4.7 MG/DL Magnesium Level 1.8 1.6-2.4 MG/DL Total Bilirubin 0.8 0.1-1.0 MG/DL Aspartate Amino Transf (AST/SGOT) 38 H 5-34 U/L Alanine Aminotransferase (ALT/SGPT) 24 0-55 U/L Alkaline Phosphatase 73 40-136 U/L Troponin I 0.258 H <0.028 NG/ML Total Protein 5.7 L 6.4-8.2 GM/DL Albumin 3.0 L 3.2-4.5 GM/DL Lipase 5 L 8-78 U/L Beta-Hydroxybutyrate (Chem panel) 2.03 H 0.00-0.27 MMOL/L Procalcitonin 23.12 H <0.10 NG/ML Urine Color YELLOW Urine Clarity CLEAR Urine pH 6.0 5-9 Urine Specific Benson 1.020 1.016-1.022 Urine Protein 3+ H NEGATIVE Urine Glucose (UA) 2+ H NEGATIVE Urine Ketones 1+ H NEGATIVE Urine Nitrite NEGATIVE NEGATIVE Urine Bilirubin NEGATIVE NEGATIVE Urine Urobilinogen 0.2 < = 1.0 MG/DL Urine Leukocyte Esterase NEGATIVE NEGATIVE Urine RBC (Auto) 2+ H NEGATIVE Urine RBC 5-10 H /HPF Urine WBC 0-2 /HPF Urine Squamous Epithelial Cells 0-2 /HPF Urine Crystals PRESENT H /LPF Urine Amorphous Sediment MOD GRACE URATES H /LPF Urine Bacteria FEW H /HPF Urine Casts PRESENT /LPF Urine Hyaline Casts 5-10 H /LPF Urine Mucus SMALL H /LPF Urine Culture Indicated CULTURE PENDING Test 06/04/22 16:45 06/04/22 17:30 06/04/22 19:32 06/04/22 23:45 Range/Units Venous Blood pH 7.34 7.31-7.41 Venous Blood Partial Pressure CO2 38 L 40-52 MMHG Venous Blood HCO3 20 L 22-28 MMOL/L Sodium Level 135 135-145 MMOL/L Potassium Level 3.5 L 3.6-5.0 MMOL/L Chloride Level 105 98-107 MMOL/L Carbon Dioxide Level 15 L 21-32 MMOL/L Anion Gap 15 H 5-14 MMOL/L Blood Urea Nitrogen 35 H 7-18 MG/DL Creatinine 4.71 #H 0.60-1.30 MG/DL Estimat Glomerular Filtration Rate 15 BUN/Creatinine Ratio 7 Glucose Level 258 H 70-105 MG/DL Calcium Level 7.1 L 8.5-10.1 MG/DL Corrected Calcium 8.3 L 8.5-10.1 MG/DL Total Bilirubin 0.4 0.1-1.0 MG/DL Aspartate Amino Transf (AST/SGOT) 32 5-34 U/L Alanine Aminotransferase (ALT/SGPT) 22 0-55 U/L Alkaline Phosphatase 57 40-136 U/L Total Protein 4.5 L 6.4-8.2 GM/DL Albumin 2.5 L 3.2-4.5 GM/DL Lactic Acid Level 2.86 *H 2.64 *H 0.50-2.00 MMOL/L Troponin I 0.124 H <0.028 NG/ML Test 06/05/22 04:09 Range/Units White Blood Count 14.6 H 4.3-11.0 10^3/uL Red Blood Count 3.41 L 4.30-5.52 10^6/uL Hemoglobin 10.5 L 13.3-17.7 g/dL Hematocrit 31 L 40-54 % Mean Corpuscular Volume 92 80-99 fL Mean Corpuscular Hemoglobin 31 25-34 pg Mean Corpuscular Hemoglobin Concent 34 32-36 g/dL Red Cell Distribution Width 14.6 H 10.0-14.5 % Platelet Count 159 130-400 10^3/uL Mean Platelet Volume 10.2 9.0-12.2 fL Immature Granulocyte % (Auto) 0 % Neutrophils (%) (Auto) 80 H 42-75 % Lymphocytes (%) (Auto) 14 12-44 % Monocytes (%) (Auto) 5 0-12 % Eosinophils (%) (Auto) 0 0-10 % Basophils (%) (Auto) 0 0-10 % Neutrophils # (Auto) 11.7 H 1.8-7.8 10^3/uL Lymphocytes # (Auto) 2.1 1.0-4.0 10^3/uL Monocytes # (Auto) 0.8 0.0-1.0 10^3/uL Eosinophils # (Auto) 0.0 0.0-0.3 10^3/uL Basophils # (Auto) 0.0 0.0-0.1 10^3/uL Immature Granulocyte # (Auto) 0.1 0.0-0.1 10^3/uL Sodium Level 134 L 135-145 MMOL/L Potassium Level 3.5 L 3.6-5.0 MMOL/L Chloride Level 104 98-107 MMOL/L Carbon Dioxide Level 19 L 21-32 MMOL/L Anion Gap 11 5-14 MMOL/L Blood Urea Nitrogen 41 H 7-18 MG/DL Creatinine 5.00 H 0.60-1.30 MG/DL Estimat Glomerular Filtration Rate 14 BUN/Creatinine Ratio 8 Glucose Level 94 70-105 MG/DL Calcium Level 7.2 L 8.5-10.1 MG/DL Troponin I 0.130 H <0.028 NG/ML Physical Exam Physical Exam Vital Signs Vital Signs - First Documented 06/04/22 06/04/22 06/04/22 06/05/22 12:25 18:45 23:12 08:00 Temp 37.8 Pulse 125 Resp 28 B/P (MAP) 205/119 (147) Pulse Ox 93 O2 Delivery Room Air O2 Flow Rate 1.00 FiO2 21 Capillary Refill : Less Than 3 Seconds Height, Weight, BMI Height: 5'9.00" Weight: 150lbs. 0.0oz. [id number]; 24.99 BMI Method:Stated General Appearance: Moderate Distress Eyes: Bilateral Eye Normal Inspection, Bilateral Eye PERRL, Bilateral Eye EOMI HEENT: TMs Normal, Other (frontal sinues tender to palpation) Neck: Full Range of Motion, Normal Inspection Respiratory: Lungs Clear, Normal Breath Sounds, No Accessory Muscle Use, No Respiratory Distress Cardiovascular: Regular Rate, Rhythm, No Edema, No JVD, Systolic Murmur, Gallop/S3 Gastrointestinal: Normal Bowel Sounds, No Organomegaly, No Pulsatile Mass, Non Tender, Soft Back: Normal Inspection, No CVA Tenderness, No Vertebral Tenderness Extremity: Normal Inspection, Normal Range of Motion Neurologic/Psychiatric: Alert, Oriented x3, Normal Mood/Affect Skin: Normal Color, Warm/Dry Lymphatic: No Adenopathy A/P-Cardiology Admission Diagnosis Chest pain Non-ST elevation myocardial infarction Pneumonia Hypertensive urgency Assessment/Plan Chest pain, mild elevation in troponin with EKG changes Non-ST elevation myocardial infarction, his pain is mainly reproducible by coughing and the EKG changes probably secondary to LVH. Will continue to monitor trend, starting on aspirin and beta-blockers and monitor. Persistent headache for the past month. Severe hypertension, probably secondary to hypertension Hypertensive urgency. Was receiving labetalol IV. I will start her on Lopressor and amlodipine Cannot tolerate BRAD inhibitor and/or ARB due to renal failure Chronic kidney disease stage IV, worsening renal function, receiving IV fluid Recommend nephrology consultation. Pneumonia, receiving antibiotics started on a Zithromax with ceftriaxone on June 04, 2022 Managed by medical team Diabetes mellitus, followed and managed by primary care physician Patient is on disability, reported that he has been on disability due to his diabetes and mental status YURY MALDONADO MD Jun 05, 2022 09:00
[2022-06-05] MEDS: ASPIRIN E.C. 81 MG (ECOTRIN) TAB PO SCH (09:44)
[2022-06-05] MEDS: amLODIPine 10 MG (NORVASC) TAB PO SCH (09:44)
[2022-06-05] MEDS: meTOprolol TARTRATE 25 MG (LOPRESSOR) TABLET PO SCH ×2 (09:44→21:42)
[2022-06-05] MEDS: PANTOPRAZOLE 40 MG (PROTONIX) TAB PO SCH (09:44)
[2022-06-05] MEDS ORDERED: meTOprolol SUCCINATE 100 MG (TOPROL XL) TAB PO NR (13:00)
[2022-06-05] MEDS: cefTRIAXone 1 GM PRE-MIX 50 ML IV SCH (14:39)
--- NOTE | 2022-06-05 16:36 | Consultation ---
History of Present Illness History of Present Illness Patient Consulted On(marcelo/time) 06/05/22 16:11 Date Seen by Provider: Jun 05, 2022 Time Seen by Provider: 16:26 Reason for Visit: Chest pain History of Present Illness Pt is a 36 y/o WM with h/o DM, HTN, CKD from nsaid use and dm type 1, and MRSA skin infection who was admitted to ICU for pneumonia leading to sepsis and acute renal failure. Pt had n/v for 1 day from 6pm to 9am. no nsaids Was not able to keep anything down. Pt is followed by Dr Caballero in our office. Allergies and Home Medications Allergies Uncoded Allergies: STEROID (Adverse Reaction, Unknown, 'CHEST FELT TIGHT', 11/28/14) Patient Home Medication List Home Medication List Reviewed: Yes Insulin Aspart (Novolog) 100 Unit/Ml Susp, UNIT SQ PER PUMP, (Reported) Entered as Reported by: VIOLA FALL on 12/14/201000 Last Action: Reviewed Discontinued Medications Acetaminophen (Tylenol) 325 Mg Tablet, 650 MG PO Q8H PRN for PAIN-MILD (1-4), (Reported) Discontinued Reason: No Longer Taking Entered as Reported by: VIOLA FALL on 11/29/211151 Last Action: Discontinued Amlodipine Besylate (Amlodipine Besylate) 10 Mg Tablet, 5 MG PO HS, (Reported) Discontinued Reason: No Longer Taking Entered as Reported by: VIOLA FALL on 12/14/20 100 Last Action: Discontinued Atorvastatin Calcium (Atorvastatin Calcium) 20 Mg Tablet, 20 MG PO HS, (Reported) Discontinued Reason: No Longer Taking Entered as Reported by: VIOLA FALL on 11/29/211151 Last Action: Discontinued Furosemide (Furosemide) 20 Mg Tablet, 20 MG PO DAILY, (Reported) Discontinued Reason: No Longer Taking Entered as Reported by: KAVITHA TUCKER on 11/28/212144 Last Action: Discontinued Gabapentin (Neurontin) 300 Mg Capsule, 300 MG PO HS, (Reported) Discontinued Reason: No Longer Taking Entered as Reported by: VIOLA FALL on 11/29/211151 Last Action: Discontinued Losartan Potassium (Losartan Potassium) 100 Mg Tablet, 100 MG PO DAILY, (Reported) Discontinued Reason: No Longer Taking Entered as Reported by: KAVITHA TUCKER on 11/28/212144 Last Action: Discontinued Metoprolol Succinate (Metoprolol Succinate) 100 Mg Tab.er.24h, 100 MG PO DAILY, (Reported) Discontinued Reason: No Longer Taking Entered as Reported by: KAVITHA TUCKER on 11/28/212144 Last Action: Discontinued Ondansetron (Ondansetron Odt) 4 Mg Tab.rapdis, 4 MG SL Q4H PRN for NAUSEA/VOMITING Discontinued Reason: No Longer Taking Prescribed by: Daniel Rene on 03/28/221525 Last Action: Discontinued Pantoprazole Sodium (Pantoprazole Sodium) 40 Mg Tablet.dr, 40 MG PO DAILY, (Reported) Discontinued Reason: No Longer Taking Entered as Reported by: VIOLA FALL on 12/14/20 100 Last Action: Discontinued Promethazine HCl (Promethazine Suppository) 25 Mg Supp.rect, 25 MG RC Q6H PRN for NAUSEA/VOMITING-2ND LINE Discontinued Reason: No Longer Taking Prescribed by: Daniel Rene on 03/28/221525 Last Action: Discontinued Sodium Bicarbonate (Sodium Bicarbonate) 650 Mg Tablet, 650 MG PO BID, (Reported) Discontinued Reason: No Longer Taking Entered as Reported by: KAVITHA TUCKER on 11/28/212144 Last Action: Discontinued Past Jftjjhi-Pwaviw-Kqlwdv Hx Patient Social History Tobacco Use?: Yes Smoking Status: Never a Smoker Smokeless Tobacco Frequency: Current Everyday User Use of E-Cig and/or Vaping dev: No Substance use?: No Alcohol Use?: Yes Alcohol type: Beer Alcohol Frequency: Once in a while Pt feels they are or have been: No Immunizations Up To Date Tetanus Booster (TDap): Less than 5yrs Influenza Vaccine Up-to-Date: Yes; Up-to-Date First/Initial COVID19 Vaccinat: 2020 Second COVID19 Vaccination Marcelo: 2020 Third COVID19 Vaccination Date: 2020 Past Medical History Surgery/Hospitalization HX: IDDM TYPE 1, RENAL FAILURE APPENDECTOMY, ORTHOPEDIC, Surgeries: Yes Orthopedic Respiratory: No Currently Using CPAP: No Currently Using BIPAP: No Cardiac: Yes Hypertension Neurological: No Reproductive Disorders: No Genitourinary: No Renal Failure Gastrointestinal: No Musculoskeletal: No Endocrine: Yes Diabetes, Insulin dep Cancer: No Psychosocial: No Integumentary: No Blood Disorders: No Adverse Reaction/Blood Tranf: No Family Medical History No Pertinent Family Hx Review of Systems-General Constitutional: no symptoms reported Physical Exam-General Problems Physical Exam Vital Signs Vital Signs - First Documented 06/04/22 06/04/22 06/04/22 06/05/22 12:25 18:45 23:12 07:30 Temp 37.8 Pulse 125 Resp 28 B/P (MAP) 205/119 (147) Pulse Ox 93 O2 Delivery Room Air O2 Flow Rate 1.00 FiO2 21 Capillary Refill : Less Than 3 Seconds Assessment/Plan Assessment/Plan Admission Diagnosis/Plan MICHEL on CKD 4 baseline cr 3.2, follows with Dr. Caballero in our office michel due to infection and volume depletion pt's has been out of his losartan and other bp med would avoid restarting losartan pt tolerating po well now encouraged adequate po intake met acidosis due to renal failure continue po bicarb goal bicarb 22-26 HTN off his losartan, amlodipine, and metoprolol since end of last year due to not having money to pay for it or see his primary/copay goal <130/80 lower sodium intake Pneumonia on abx renally dose h/o hyperkalemia low k diet Thank you for allowing me participate in the care of this pt. Visit was conducted via video conference with pt's verbal consent. AILYN WADSWORTH MD Jun 05, 2022 16:36
--- NOTE | 2022-06-05 16:43 | History & Physical-Hospitalist ---
DONOVAN ZARAGOZA 06/05/22 1643: History of Present Illness HPI/Chief Complaint Christopher Nieto is a 36yo male with past medical history of CKD and Type I diabetes presenting with Acute on Chronic Kidney Disease and Sepsis secondary to CAP. Pt has been experiencing a PEDRAZA for about a month now and currently experiencing congestion. Pt has also been vomiting last two days which is why he presented to the ED 06/04/22. Today pt states pain localizes around his hips and R. ribs which worsens with cough. States that he has noticed he has had diarrhea for the past few weeks as well. 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 Pt denies any noticeable swelling, but endorses PEDRAZA, chest pain, nausea and vomiting. Date Seen 06/05/22 Attending Physician Jimbo Machuca DO PCP Admitting Physician: Che Pretty MD Attending Physician: Cheko Taveras MD Referring Physician Date of Admission Jun 04, 2022 at 17:52 Home Medications & Allergies Home Medications Reviewed patient Home Medication Reconciliation performed by pharmacy medication reconciliations environmental field technician and/or nursing. Patients Allergies have been reviewed. Allergies Allergies Uncoded Allergies STEROID ( Adverse Reaction, Unknown, 'CHEST FELT TIGHT', 11/28/14) Past Femlgre-Hdnjha-Wtkckg Hx Patient Social History Employed/Student: unemployed Tobacco Use?: Yes Smoking Status: Never a Smoker Smokeless type used: Chew Smokeless Tobacco Frequency: Current Everyday User Use of E-Cig and/or Vaping dev: No Substance use?: No Alcohol Use?: Yes Alcohol type: Beer Alcohol Frequency: Once in a while Pt feels they are or have been: No Immunizations Up To Date Date of Influenza Vaccine: Jan 02, 2023 First/Initial COVID19 Vaccinat: 2020 Second COVID19 Vaccination Marcelo: 2020 Tetanus Booster (TDap): Unknown Current Status Advance Directives: No Communicates: Verbally Primary Language: Gambian Preferred Spoken Language: Gambian Is interpretation needed?: No Sensory deficits: Vision impairment Implanted or Applied Medical D: Insulin pump Past Medical History Surgeries: Orthopedic Currently Using CPAP: No Currently Using BIPAP: No Hypertension Renal Failure Diabetes, Insulin dep Blood Disorders: No Adverse Reaction/Blood Tranf: No Family Medical History No Pertinent Family Hx Physical Exam Physical Exam Vital Signs Vital Signs - First Documented 06/04/22 06/04/22 06/04/22 06/05/22 12:25 18:45 23:12 07:30 Temp 37.8 Pulse 125 Resp 28 B/P (MAP) 205/119 (147) Pulse Ox 93 O2 Delivery Room Air O2 Flow Rate 1.00 FiO2 21 Capillary Refill : Less Than 3 Seconds Height, Weight, BMI Height: 5'9.00" Weight: 150lbs. 0.0oz. 68.278123va; 24.99 BMI Method:Stated General Appearance: No Apparent Distress Respiratory: Lungs Clear, Normal Breath Sounds Cardiovascular: No Edema, No Murmur; No Irregularly Irregular; Tachycardia Gastrointestinal: Normal Bowel Sounds, Soft Neurologic/Psychiatric: Alert, Oriented x3 Skin: Normal Color, Warm/Dry Results Results/Procedures Labs Laboratory Tests 06/04/22 12:55 06/04/22 16:45 06/05/22 04:09 Patient resulted labs reviewed. Imaging CXR INDICATION: Cough. Fever. COMPARISON: 12/13/2020. FINDINGS: New bilateral patchy airspace opacities. No pleural effusion or pneumothorax. Normal heart size and central pulmonary vascularity. No acute osseous findings. IMPRESSION: New bilateral airspace opacities suspicious for pneumonitis. Recommend follow-up to resolution. CT HEAD WO PROCEDURE: CT head without contrast. TECHNIQUE: Multiple contiguous axial images were obtained through the brain without the use of intravenous contrast. Auto Exposure Controls were utilized during the CT exam to meet ALARA standards for radiation dose reduction. INDICATION: Headache. COMPARISON: None available. FINDINGS: No hyperdense hemorrhage or space-occupying mass. No hydrocephalus or midline shift. The basilar cisterns are normal. Tolliver-white matter differentiation is well preserved. The mastoid air cells are clear. Paranasal sinuses are normal. No focal osseous abnormality of the calvarium. IMPRESSION: 1. No acute intracranial process. Assessment/Plan Admission Diagnosis Acute on Chronic Renal Failure Assessment and Plan Acute on Chronic Renal Failure w/ ATN Worsening BUN and Cr BUN 41 Cr 5 UA- Hyaline Casts Discontinue Fluids Consult Nephrology Severe Sepsis SIRS+ Elevated HR Elevated WBC Elevated Lactic Acid HTN Lopressor and amlodipine CAP CXR: Infiltrates Start Azithromycin and Ceftriaxone Lactic Acidosis Improving Sodium Bicarbonate Elevated Troponin Monitor Troponin Nausea/Vomiting Protonix Prochlorperazine prn CHEKO TAVERAS MD 06/05/22 1914: History of Present Illness Source: patient Exam Limitations: no limitations Time Seen by a Provider: 10:10 Past Sxpwihv-Xzzksl-Gfyqje Hx Patient Social History Smoking Status: Never a Smoker Substance use?: No Alcohol Use?: Yes Past Medical History Hypertension Renal Failure Diabetes, Insulin dep Family Medical History No Pertinent Family Hx Review of Systems Constitutional: see HPI Physical Exam Physical Exam General Appearance: No Apparent Distress, WD/WN HEENT: PERRL/EOMI, Pharynx Normal Neck: Normal Inspection, Supple Respiratory: Lungs Clear, Normal Breath Sounds, No Respiratory Distress Cardiovascular: No Edema, No Murmur, Tachycardia Gastrointestinal: Normal Bowel Sounds, Non Tender, Soft Extremity: Normal Inspection, No Pedal Edema Neurologic/Psychiatric: Alert, No Motor/Sensory Deficits, Other (flat affect) Skin: Normal Color, Warm/Dry Results Results/Procedures Imaging: Reviewed Imaging Report Assessment/Plan Admission Diagnosis Severe sepsis due to pneumonia Admission Status: Inpatient Order (span 2 midnights) Reason for Inpatient Admission: Pneumonia Renal failure Assessment and Plan Admitted with severe sepsis due to pneumonia with MICHEL on CKD. Continue antibiotics. Stop fluids. Consult nephrology. Cardiology following for elevated troponin, likely secondary to sepsis and renal failure. Critical Care Critically Ill Patient Diagnosis/Problems Diagnosis/Problems (1) Sepsis Status: Acute Qualifiers: Sepsis acute organ dysfunction status: with acute organ dysfunction Severe sepsis acute organ dysfunction type: acute renal failure Acute renal failure type: unspecified Severe sepsis shock status: without septic shock (2) Pneumonia Status: Acute (3) Acute kidney injury superimposed on chronic kidney disease Status: Acute (4) Elevated troponin I level Status: Acute (5) Type I diabetes mellitus, uncontrolled Onset Date: 11/29/2014 Status: Chronic Qualifiers: Glycemic state: with hyperglycemia Qualified Codes: E10.65 - Type 1 diabetes mellitus with hyperglycemia (6) HTN (hypertension) Status: Acute Supervisory-Addendum Brief Verification & Attestation Participated in pt care: history, MDM, physical Personally performed: exam, history, MDM, supervision of care Care discussed with: Medical Student Procedures: n/a Results interpretation: Verified all documentation A medical student performed and documented this service in my presence. I reviewed and verified all information documented by the medical student and made modifications to such information, when appropriate. I personally performed the physical exam and medical decision making. DONOVAN ZARAGOZA Jun 05, 2022 16:43 CHEKO TAVERAS MD Jun 05, 2022 19:14
[2022-06-06] VITALS (9 sets, daily range): BP systolic 131–166; BP diastolic 82–104
[2022-06-06] MEDS: RT-ALBUTEROL SULF 2.5 MG/3 ML PRE-MIX VIAL INH SCH ×4 (02:25→19:03)
[2022-06-06 04:16] LABS: BASOPHILS % (AUTO) 0 % (0-10); EOSINOPHILS % (AUTO) 0 % (0-10); HEMATOCRIT 28 % (40-54); HEMOGLOBIN 9.5 g/dL (13.3-17.7); LYMPHOCYTES # (AUTO) 1.5 10^3/uL (1.0-4.0); LYMPHOCYTES % (AUTO) 16 % (12-44); MEAN CORPUSCULAR HEMOGLOBIN 31 pg (25-34); MEAN CORPUSCULAR HGB CONC 34 g/dL (32-36); MEAN CORPUSCULAR VOLUME 90 fL (80-99); MEAN PLATELET VOLUME 10.6 fL (9.0-12.2); MONOCYTES # (AUTO) 0.4 10^3/uL (0.0-1.0); MONOCYTES % (AUTO) 4 % (0-12); NEUTROPHILS # (AUTO) 7.5 10^3/uL (1.8-7.8); NEUTROPHILS % (AUTO) 79 % (42-75); PLATELET COUNT 172 10^3/uL (130-400); WHITE BLOOD COUNT 9.5 10^3/uL (4.3-11.0)
[2022-06-06 04:32] LABS: CALCIUM 7.3 MG/DL (8.5-10.1); CREATININE SERUM 5.27 MG/DL (0.60-1.30); PHOSPHORUS 4.3 MG/DL (2.3-4.7); POTASSIUM 2.9 MMOL/L (3.6-5.0)
--- NOTE | 2022-06-06 07:43 | Cardiology Progress Note ---
Subjective Date Seen by Provider: Jun 06, 2022 Time Seen by Provider: 07:42 Subjective/Events-last exam Patient was seen at bedside, sitting comfortably, anxious about going home No new complaint, feeling better Review of Systems General: No Chills, No Night Sweats, No Fatigue, No Malaise, No Appetite, No Other HEENT: No Head Aches, No Visual Changes, No Eye Pain, No Ear Pain, No Dysphasia, No Sinus Congestion, No Post Nasal Drip, No Sore Throat, No Other Pulmonary: No Dyspnea, No Cough, No Pleuritic Chest Pain, No Other Cardiovascular: No: Chest Pain, Palpitations, Orthopnea, Paroxysmal Noc. Dyspnea, Edema, Lt Headedness, Other Focused Exam Lactate Level 06/04/22 15:10: Lactic Acid Level 2.28*H 06/04/22 17:30: Lactic Acid Level 2.86*H 06/04/22 19:32: Lactic Acid Level 2.64*H Objective-Cardiology Exam Last Set of Vital Signs Vital Signs 06/04/22 06/06/22 06/06/22 23:12 02:25 07:30 Temp 36.4 Pulse 100 Resp 22 B/P (MAP) 166/104 (124) Pulse Ox 97 O2 Delivery Room Air O2 Flow Rate 0.00 FiO2 21 I&O Intake and Output 06/06/22 00:00 Intake Total 4700 ml Balance 4700 ml Intake Oral 3400 ml IV Total 1300 ml # Voids 8 # Bowel Movements 5 General: Alert, Oriented X3, Cooperative HEENT: Atraumatic, PERRLA Neck: Supple, No JVD, No Thyromegaly Lungs: Clear to Auscultation, Normal Air Movement Heart: Regular Rate, Normal S1, Normal S2, Other (S3 present) Abdomen: Normal Bowel Sounds, Soft, No Tenderness, No Hepatosplenomegaly, No Masses Extremities: No Clubbing, No Cyanosis, No Edema, Normal Pulses, No Tenderness/Swelling Skin: No Rashes, No Breakdown, No Significant Lesion Neuro: Normal Gait, Normal Speech, Strength at 5/5 X4 Ext, Normal Tone, Sensation Intact Psych/Mental Status: Mental Status NL, Mood NL Results Lab Laboratory Tests 06/06/22 04:01 A/P-Cardiology Admission Diagnosis Chest pain Non-ST elevation myocardial infarction Pneumonia Hypertensive urgency Assessment/Plan Chest pain, mild elevation in troponin with EKG changes, troponin level has been flat Non-ST elevation myocardial infarction, his pain is mainly reproducible by coughing and the EKG changes probably secondary to LVH. Patient will not tolerate a cardiac catheterization and may progress into dialysis. Okay for discharge and follow-up as an outpatient Will consider stress test as an outpatient Persistent headache for the past month. Severe hypertension, probably secondary to hypertension Reporting improvement. Hypertensive urgency. He will having elevation in blood pressure but overall better. Chronic kidney disease stage IV, worsening renal function, receiving IV fluid Seen and evaluated by Dr. Nemo Alvarez Pneumonia, receiving antibiotics started on a Zithromax with ceftriaxone on June 04, 2022 Managed by medical team Diabetes mellitus, followed and managed by primary care physician Patient is on disability, reported that he has been on disability due to his diabetes and mental status YURY MALDONADO MD Jun 06, 2022 07:43
[2022-06-06] MEDS: AZITHROMYCIN INJECTION 500 MG in NS (IVPB) 250 ML IV SCH (08:12)
[2022-06-06] MEDS: meTOprolol TARTRATE 25 MG (LOPRESSOR) TABLET PO SCH ×2 (08:17→21:01)
[2022-06-06] MEDS: SODIUM BICARBONATE 650 MG TABLET PO SCH ×3 (08:17→21:00)
[2022-06-06] MEDS: amLODIPine 10 MG (NORVASC) TAB PO SCH (08:17)
[2022-06-06] MEDS: ASPIRIN E.C. 81 MG (ECOTRIN) TAB PO SCH (08:17)
[2022-06-06] MEDS: PANTOPRAZOLE 40 MG (PROTONIX) TAB PO SCH (08:17)
[2022-06-06] MEDS ORDERED: meTOprolol SUCCINATE 100 MG (TOPROL XL) TAB PO SCH (09:00)
[2022-06-06] MEDS ORDERED: KCL 20 MEQ TAB (K-DUR) PO NR ×2 (09:00→14:00)
[2022-06-06] MEDS ORDERED: amLODIPine 10 MG (NORVASC) TAB PO SCH (09:00)
[2022-06-06 09:35] LABS: CHOLESTEROL 140 MG/DL (< 200); HDL CHOLESTEROL 74 MG/DL (40-60); TRIGLYCERIDES 96 MG/DL (<150); VLDL CHOLESTEROL 19 MG/DL (5-40)
[2022-06-06] MEDS ORDERED: METO-333 PO (12:53)
[2022-06-06] MEDS ORDERED: NF-SODBICA PO (12:53)
[2022-06-06] MEDS ORDERED: ASPI-1238 PO (12:53)
[2022-06-06] MEDS ORDERED: AMLO-251 PO (12:53)
[2022-06-06] MEDS ORDERED: CEFD300C3 PO (12:53)
--- NOTE | 2022-06-06 13:15 | Progress Note ---
Progress Note Assessment/Plan Date Seen by Provider: Jun 06, 2022 Time Seen by Provider: 13:14 Assessment/Plan MICHEL on CKD 4 baseline cr 3.2, follows with Dr. Caballero in our office michel due to infection and volume depletion pt's has been out of his losartan and other bp med would avoid restarting losartan pt tolerating po well now encouraged adequate po intake met acidosis due to renal failure continue po bicarb goal bicarb 22-26 HTN off his losartan, amlodipine, and metoprolol since end of last year due to not having money to pay for it or see his primary/copay goal <130/80 lower sodium intake Pneumonia on abx renally dose h/o hyperkalemia low k diet Thank you for allowing me participate in the care of this pt. Visit was conducted via video conference with pt's verbal consent. Vitals Last set of Vitals Signs Vital Signs Date Time Temp Pulse Resp B/P (MAP) Pulse Ox O2 Delivery O2 Flow Rate FiO2 06/06/22 13:02 89 06/06/22 10:38 97 Room Air 06/06/22 07:30 36.4 22 166/104 (124) 06/06/22 02:25 0.00 06/04/22 23:12 21 I&O I&O Intake and Output 06/06/22 00:00 Intake Total 4700 ml Balance 4700 ml Intake Oral 3400 ml IV Total 1300 ml # Voids 8 # Bowel Movements 5 Labs Laboratory Tests 06/06/22 04:01: White Blood Count 9.5, Red Blood Count 3.10L, Hemoglobin 9.5L, Hematocrit 28L, Mean Corpuscular Volume 90, Mean Corpuscular Hemoglobin 31, Mean Corpuscular Hemoglobin Concent 34, Red Cell Distribution Width 14.0, Platelet Count 172, M moriah Platelet Volume 10.6, Immature Granulocyte % (Auto) 1, Neutrophils (%) (Auto) 79H, Lymphocytes (%) (Auto) 16, Monocytes (%) (Auto) 4, Eosinophils (%) (Auto) 0, Basophils (%) (Auto) 0, Neutrophils # (Auto) 7.5, Lymphocytes # (Auto) 1.5, Monocytes # (Auto) 0.4, Eosinophils # (Auto) 0.0, Basophils # (Auto) 0.0, Immature Granulocyte # (Auto) 0.1, Sodium Level 130L, Potassium Level 2.9L, Chloride Level 100, Carbon Dioxide Level 19L, Anion Gap 11, Blood Urea Nitrogen 44H, Creatinine 5.27H, Estimat Glomerular Filtration Rate 14, BUN/Creatinine Ratio 8, Glucose Level 218H, Calcium Level 7.3L, Phosphorus Level 4.3, Triglycerides Level 96, Cholesterol Level 140, LDL Cholesterol Direct 32, VLDL Cholesterol 19, HDL Cholesterol 74H Microbiology 06/04/22 Blood Culture - Preliminary, Resulted No growth 06/04/22 Urine Culture - Final, Complete Growth Consistent Focused Exam Lactate Level 06/04/22 15:10: Lactic Acid Level 2.28*H 06/04/22 17:30: Lactic Acid Level 2.86*H 06/04/22 19:32: Lactic Acid Level 2.64*H AILYN WADSWORTH MD Jun 06, 2022 13:15
[2022-06-06] MEDS ORDERED: METO50TA15 PO (13:45)
[2022-06-06] MEDS ORDERED: meTOprolol TARTRATE 25 MG (LOPRESSOR) TABLET PO NR (14:00)
[2022-06-06] MEDS: cefTRIAXone 1 GM PRE-MIX 50 ML IV SCH (14:21)
--- NOTE | 2022-06-06 14:29 | Progress Note - Hospitalist ---
DONOVAN ZARAGOZA 06/06/22 1429: Subjective HPI/CC On Admission Date Seen by Provider: Jun 06, 2022 Subjective/Events-last exam Pt states he is doing well. Cough has improved from yesterday, and is w/o any pain. Pt has not had any episodes of nausea, vomiting, or diarrhea today. Pt was transferred from ICU to Cardiac step-down for continued monitoring of renal function. Pt seems to be cleared medically, but awaiting recommendation from Nephrology due to worsening renal function before discharge. Review of Systems General: No Chills HEENT: No Head Aches Pulmonary: No Dyspnea; Cough Cardiovascular: No: Chest Pain, Palpitations Gastrointestinal: No: Nausea, Vomiting, Diarrhea Focused Exam Lactate Level 06/04/22 15:10: Lactic Acid Level 2.28*H 06/04/22 17:30: Lactic Acid Level 2.86*H 06/04/22 19:32: Lactic Acid Level 2.64*H Objective Exam Vital Signs Vital Signs Date Time Temp Pulse Resp B/P (MAP) Pulse Ox O2 Delivery O2 Flow Rate FiO2 06/06/22 13:02 89 06/06/22 10:38 97 Room Air 06/06/22 07:30 36.4 22 166/104 (124) 06/06/22 02:25 0.00 06/04/22 23:12 21 Capillary Refill : Less Than 3 Seconds General Appearance: Anxious Respiratory: Chest Non Tender, Lungs Clear, Normal Breath Sounds Cardiovascular: Regular Rate, Rhythm, No Edema, No Murmur, Normal Peripheral Pulses Gastrointestinal: Normal Bowel Sounds, Non Tender, Soft Results/Procedures Lab Laboratory Tests 06/06/22 04:01 Patient resulted labs reviewed. Imaging: Reviewed Imaging Report Assessment/Plan Assessment and Plan Assess & Plan/Chief Complaint Acute on Chronic Renal Failure w/ ATN Worsening BUN and Cr UA- Hyaline Casts Managed per Nephrology; Awaiting decision from Nephrology about discharge and f/u outpatient Severe Sepsis Improved HTN Continue Lopressor and amlodipine CAP CXR: Infiltrates Continue Azithromycin and Ceftriaxone Lactic Acidosis Improving Continue Sodium Bicarbonate Elevated Troponin Monitor Troponin per Cardiology Nausea/Vomiting Protonix Prochlorperazine prn CHEKO TAVERAS MD 06/06/22 1811: Subjective HPI/CC On Admission Time Seen by Provider: 11:10 Objective Exam General Appearance: No Apparent Distress, Chronically ill Respiratory: Lungs Clear, No Respiratory Distress Cardiovascular: Regular Rate, Rhythm, No Murmur Gastrointestinal: Normal Bowel Sounds, Soft Extremity: Normal Inspection, No Pedal Edema Neurologic/Psychiatric: Alert, Normal Mood/Affect Skin: Normal Color, Warm/Dry Assessment/Plan Assessment and Plan Assess & Plan/Chief Complaint Pneumonia improved. Kidney function slightly worsened. Nephrology following. Increasing BP meds. Migraine this afternoon. Discharge delayed. Diagnosis/Problems Diagnosis/Problems (1) Acute kidney injury superimposed on chronic kidney disease Status: Acute (2) Pneumonia Status: Acute (3) Type I diabetes mellitus, uncontrolled Onset Date: 11/29/2014 Status: Chronic Qualifiers: Qualified Codes: E10.65 - Type 1 diabetes mellitus with hyperglycemia (4) HTN (hypertension) Status: Acute Supervisory-Addendum Brief Verification & Attestation Participated in pt care: history, MDM, physical Personally performed: exam, history, MDM, supervision of care Care discussed with: Medical Student Procedures: n/a Results interpretation: Verified all documentation A medical student performed and documented this service in my presence. I reviewed and verified all information documented by the medical student and made modifications to such information, when appropriate. I personally performed the physical exam and medical decision making. DONOVAN ZARAGOZA Jun 06, 2022 14:29 CHEKO TAVERAS MD Jun 06, 2022 18:11
[2022-06-06] MEDS: ACETAMINOPHEN 500 MG TAB (TYLENOL) PO PRN (15:03)
[2022-06-06] MEDS ORDERED: hydrALAZINE (APRESOLINE) 25 MG TAB PO NR (15:30)
[2022-06-06] MEDS ORDERED: SUMAtriptan 50 MG (IMITREX) TAB PO NR (15:30)
[2022-06-06] MEDS: cloNIDine 0.1 MG (CATAPRES) TAB PO SCH ×2 (17:21→21:00)
[2022-06-06] MEDS: hydrALAZINE (APRESOLINE) 25 MG TAB PO SCH (22:04)
[2022-06-06] MEDS ORDERED: RT-ALBUTEROL SULF 2.5 MG/3 ML PRE-MIX VIAL INH PRN (23:00)
[2022-06-07 00:54] VITALS: BP 145/101
[2022-06-07] MEDS: ACETAMINOPHEN 500 MG TAB (TYLENOL) PO PRN (02:04)
[2022-06-07 04:58] VITALS: BP 150/96
[2022-06-07] MEDS: hydrALAZINE (APRESOLINE) 25 MG TAB PO SCH (05:02)
[2022-06-07 05:24] LABS: BASOPHILS % (AUTO) 0 % (0-10); EOSINOPHILS # (AUTO) 0.1 10^3/uL (0.0-0.3); EOSINOPHILS % (AUTO) 1 % (0-10); HEMATOCRIT 28 % (40-54); HEMOGLOBIN 9.4 g/dL (13.3-17.7); LYMPHOCYTES # (AUTO) 1.5 10^3/uL (1.0-4.0); LYMPHOCYTES % (AUTO) 20 % (12-44); MEAN CORPUSCULAR HEMOGLOBIN 31 pg (25-34); MEAN CORPUSCULAR HGB CONC 34 g/dL (32-36); MEAN CORPUSCULAR VOLUME 89 fL (80-99); MEAN PLATELET VOLUME 11.6 fL (9.0-12.2); MONOCYTES # (AUTO) 0.4 10^3/uL (0.0-1.0); MONOCYTES % (AUTO) 5 % (0-12); NEUTROPHILS # (AUTO) 5.4 10^3/uL (1.8-7.8); NEUTROPHILS % (AUTO) 73 % (42-75); PLATELET COUNT 223 10^3/uL (130-400); WHITE BLOOD COUNT 7.3 10^3/uL (4.3-11.0)
[2022-06-07 05:42] LABS: POTASSIUM 3.4 MMOL/L (3.6-5.0)
[2022-06-07 05:43] LABS: CALCIUM 7.3 MG/DL (8.5-10.1)
[2022-06-07 05:48] LABS: CREATININE SERUM 4.98 MG/DL (0.60-1.30)
[2022-06-07] MEDS: RT-ALBUTEROL SULF 2.5 MG/3 ML PRE-MIX VIAL INH SCH ×2 (07:35→10:32)
[2022-06-07 08:00] VITALS: BP 147/92
[2022-06-07] MEDS ORDERED: CEFDINIR 300 MG (OMNICEF) CAP PO SCH (09:00)
[2022-06-07] MEDS ORDERED: AZITHROMYCIN 250 MG TAB (ZITHROMAX) PO SCH (09:00)
[2022-06-07] MEDS: SODIUM BICARBONATE 650 MG TABLET PO SCH (09:54)
[2022-06-07] MEDS: PANTOPRAZOLE 40 MG (PROTONIX) TAB PO SCH (09:54)
[2022-06-07] MEDS: amLODIPine 10 MG (NORVASC) TAB PO SCH (09:54)
[2022-06-07] MEDS: cloNIDine 0.1 MG (CATAPRES) TAB PO SCH (09:55)
[2022-06-07] MEDS: ASPIRIN E.C. 81 MG (ECOTRIN) TAB PO SCH (09:55)
[2022-06-07] MEDS: meTOprolol TARTRATE 25 MG (LOPRESSOR) TABLET PO SCH (09:56)
--- NOTE | 2022-06-07 10:39 | Cardiology Progress Note ---
Subjective Date Seen by Provider: Jun 07, 2022 Time Seen by Provider: 10:38 Subjective/Events-last exam Patient was seen at bedside, laying down comfortably, feeling better today. Asking about going home Review of Systems General: No Chills, No Night Sweats, No Fatigue, No Malaise, No Appetite, No Other HEENT: No Head Aches, No Visual Changes, No Eye Pain, No Ear Pain, No Dysphasia, No Sinus Congestion, No Post Nasal Drip, No Sore Throat, No Other Pulmonary: No Dyspnea, No Cough, No Pleuritic Chest Pain, No Other Cardiovascular: No: Chest Pain, Palpitations, Orthopnea, Paroxysmal Noc. Dyspnea, Edema, Lt Headedness, Other Focused Exam Lactate Level 06/04/22 15:10: Lactic Acid Level 2.28*H 06/04/22 17:30: Lactic Acid Level 2.86*H 06/04/22 19:32: Lactic Acid Level 2.64*H Objective-Cardiology Exam Last Set of Vital Signs Vital Signs 06/04/22 06/07/22 06/07/22 23:12 08:00 10:32 Temp 36.7 Pulse 94 Resp 16 B/P (MAP) 147/92 (110) Pulse Ox 91 O2 Delivery Room Air O2 Flow Rate 0.00 FiO2 21 I&O Intake and Output 06/07/22 00:00 Intake Total 2250 ml Output Total 1000 ml Balance 1250 ml Intake Oral 2250 ml Output Urine Total 1000 ml # Voids 6 # Bowel Movements 3 General: Alert, Oriented X3, Cooperative HEENT: Atraumatic, PERRLA Neck: Supple, No JVD, No Thyromegaly Lungs: Clear to Auscultation, Normal Air Movement Heart: Regular Rate, Normal S1, Normal S2, Other (S3 present) Abdomen: Normal Bowel Sounds, Soft, No Tenderness, No Hepatosplenomegaly, No Masses Extremities: No Clubbing, No Cyanosis, No Edema, Normal Pulses, No Tenderness/Swelling Skin: No Rashes, No Breakdown, No Significant Lesion Neuro: Normal Gait, Normal Speech, Strength at 5/5 X4 Ext, Normal Tone, Sensation Intact Psych/Mental Status: Mental Status NL, Mood NL Results Lab Laboratory Tests 06/07/22 04:03 A/P-Cardiology Admission Diagnosis Chest pain Non-ST elevation myocardial infarction Pneumonia Hypertensive urgency Assessment/Plan Chest pain, mild elevation in troponin with EKG changes, troponin level has been flat Non-ST elevation myocardial infarction, his pain is mainly reproducible by coughing and the EKG changes probably secondary to LVH. Patient will not tolerate a cardiac catheterization and may progress into dialysis. Okay for discharge Arrange for follow-up as an outpatient and planning for stress test as an outpatient Persistent headache for the past month. Severe hypertension, probably secondary to hypertension Reporting improvement. Hypertensive urgency. He will having elevation in blood pressure but overall better. Chronic kidney disease stage IV, worsening renal function, receiving IV fluid Seen and evaluated by Dr. Nemo Alvarez Pneumonia, receiving antibiotics started on a Zithromax with ceftriaxone on June 04, 2022 Managed by medical team Diabetes mellitus, followed and managed by primary care physician Patient is on disability, reported that he has been on disability due to his diabetes and mental status YURY MALDONADO MD Jun 07, 2022 10:38
[2022-06-07] MEDS ORDERED: CLN.2T PO (11:27)
[2022-06-07 11:50] VITALS: BP 147/92
--- NOTE | 2022-06-07 14:51 | Discharge Summary ---
Discharge Summary Hospital Course Problems/Dx: (1) Sepsis Status: Acute Qualifiers: (2) Pneumonia Status: Acute (3) Acute kidney injury superimposed on chronic kidney disease Status: Acute (4) Type I diabetes mellitus, uncontrolled Status: Acute Qualifiers: Qualified Codes: E10.65 - Type 1 diabetes mellitus with hyperglycemia (5) HTN (hypertension) Status: Acute Hospital Course Date of Admission: Jun 04, 2022 at 17:52 Admission Diagnosis : Sepsis due to pneumonia, MICHEL on CKD Family Physician/Provider: Dionne Forrester DO Date of Discharge: 06/07/22 Discharge Diagnosis: Sepsis due to pneumonia, MICHEL on CKD, HTN Hospital Course: Christopher Nieto is a 36 year old male with PMH HTN, T1DM on insulin pump, CKD 4, who was admitted with sepsis due to pneumonia. He was given IV antibiotics and fluids. He also had an MICHEL on CKD. Nephrology was consulted. He follows with Dr. Caballero. He was started on sodium bicarb replacement. His creatinine peaked at >5, but improved to 4.9 on the day of discharge. His course was complicated by hypertension. He had run out of his medications at home. He was started on Amlodipine, Metoprolol, and Clonidine. He was given a prescription for Omnicef to complete as an outpatient. He should follow up with Nephrology with repeat labs in a couple weeks. He should follow up with Dr. Forrester in a week or two. He was discharged home in stable condition. Labs and Pending Lab Test: Laboratory Tests 06/06/22 21:20: Glucometer 228H 06/07/22 04:03: White Blood Count 7.3, Red Blood Count 3.08L, Hemoglobin 9.4L, Hematocrit 28L, Mean Corpuscular Volume 89, Mean Corpuscular Hemoglobin 31, Mean Corpuscular Hemoglobin Concent 34, Red Cell Distribution Width 13.7, Platelet Count 223, Mean Platelet Volume 11.6, Immature Granulocyte % (Auto) 1, Neutrophils (%) (Auto) 73, Lymphocytes (%) (Auto) 20, Monocytes (%) (Auto) 5, Eosinophils (%) (Auto) 1, Basophils (%) (Auto) 0, Neutrophils # (Auto) 5.4, Lymphocytes # (Auto) 1.5, Monocytes # (Auto) 0.4, Eosinophils # (Auto) 0.1, Basophils # (Auto) 0.0, Immature Granulocyte # (Auto) 0.0, Sodium Level 129L, Potassium Level 3.4L, Chloride Level 99, Carbon Dioxide Level 17L, Anion Gap 13, Blood Urea Nitrogen 43H, Creatinine 4.98H, Estimat Glomerular Filtration Rate 14, BUN/Creatinine Ratio 9, Glucose Level 86, Calcium Level 7.3L, Phosphorus Level 4.0 Microbiology 06/04/22 Blood Culture - Preliminary, Resulted No growth 06/04/22 Urine Culture - Final, Complete Growth Consistent Home Meds Active Clonidine HCl 0.2 Mg Tablet 0.2 Mg PO BID 30 Days Metoprolol Tartrate 50 Mg Tablet 50 Mg PO BID 30 Days Aspirin EC (Aspirin) 81 Mg Tablet.dr 81 Mg PO DAILY 30 Days Cefdinir 300 Mg Capsule 300 Mg PO DAILY 4 Days Sodium Bicarbonate 650 Mg Tablet 1,300 Mg PO TID 30 Days Amlodipine Besylate 10 Mg Tablet 10 Mg PO DAILY 30 Days Reported Novolog (Insulin Aspart) 100 Unit/Ml Susp Unit SQ PER PUMP LAST FILLED 03-29-2021 #2 VIALS Assessment/Pt Instructions See instructions Discharge Planning: >30 minutes discharge planning Discharge Instructions Discharge Diet: Low Sodium Diet (renal diet (low potassium, low phosphorus)) Activity as Tolerated: Yes Consultations Nephrology, Cardiology Discharge Physical Examination Vital Signs Vital Signs Date Time Temp Pulse Resp B/P (MAP) Pulse Ox O2 Delivery O2 Flow Rate FiO2 06/07/22 11:50 36.7 94 16 147/92 91 Room Air 0.00 06/04/22 23:12 21 General Appearance: No Apparent Distress, WD/WN Respiratory: Lungs Clear, No Respiratory Distress Cardiovascular: Regular Rate, Rhythm, No Murmur Gastrointestinal: Normal Bowel Sounds, Soft Extremity: Normal Inspection, No Pedal Edema Skin: Normal Color, Warm/Dry Neurologic/Psychiatric: Alert, Other (flat affect) Allergies: Uncoded Allergies: STEROID (Adverse Reaction, Unknown, 'CHEST FELT TIGHT', 11/28/14) Copy Copies To 1: DIONNE FORRESTER DO Copies To 2: AILYN WADSWORTH MD Discharge Summary Date of Admission Jun 04, 2022 at 17:52 Date of Discharge Jun 07, 2022 at 11:50 Discharge Date: Jun 07, 2022 Discharge Time: 11:50 Admission Diagnosis Severe sepsis due to pneumonia Consults/Procedures Consulations Nephrology, Cardiology Discharge Diagnosis Sepsis due to pneumonia, MICHEL on CKD, HTN (1) Acute kidney injury superimposed on chronic kidney disease Status: Acute (2) Pneumonia Status: Acute (3) Type I diabetes mellitus, uncontrolled Onset Date: 11/29/2014 Status: Acute Qualifiers: Qualified Codes: E10.65 - Type 1 diabetes mellitus with hyperglycemia (4) HTN (hypertension) Status: Acute CHEKO TAVERAS MD Jun 07, 2022 14:49
== END 2022-06-07 11:50 | disposition home or self-care (01) | DRG 871 ==
LOC: EDUNIT# 12:16 → ER 12:18 → ICU 17:52 → CSD 06-06 09:53
PROVIDERS: ADMIT Family Medicine; ATTEND Internal Medicine
DX: A41.9 Sepsis, unspecified organism (principal); I21.4 Non-ST elevation (NSTEMI) myocardial infarction; J18.9 Pneumonia, unspecified organism; N17.0 Acute kidney failure with tubular necrosis; E87.20 Acidosis, unspecified; N18.4 Chronic kidney disease, stage 4 (severe); R65.20 Severe sepsis without septic shock; E10.65 Type 1 diabetes mellitus with hyperglycemia; I16.0 Hypertensive urgency; Z20.822 Contact with and (suspected) exposure to COVID-19; I12.9 Hypertensive chronic kidney disease with stage 1 through stage 4 chronic kidney disease, or unspecified chronic kidney disease; E10.22 Type 1 diabetes mellitus with diabetic chronic kidney disease; E87.5 Hyperkalemia; Z79.4 Long term (current) use of insulin; Z88.8 Allergy status to other drugs, medicaments and biological substances
CPT/HCPCS: 36415; 70450; 71045; 80048; 80053; 80061; 81000; 82010; 82805; 82947; 83605; 83690; 83735; 84100; 84145; 84484; 85007; 85025; 85027; 85610; 85730; 87040; 87088; 87636; 93005; 93306; 94640; 94664; 94760

== ENCOUNTER 2022-06-07 16:39 | Emergency (ER) | payer MEDICARE, MEDICAID ==
[~2022-06-07] VITALS: Ht 175.2 cm; Wt 77.1 kg
[~2022-06-07 16:39] MED LIST changes: +ASPI-1238 PO; +CEFD300C3 PO; +CLN.2T PO; +METO-333 PO; +METO50TA15 PO
--- NOTE | 2022-06-07 17:13 | ED Lower Extremity ---
General Chief Complaint: General Problems/Pain Stated Complaint: FEET SWOLLEN, HURTING Nursing Triage Note: PT AMB TO RM 8 WITH CC OF BILAT FOOT SWELLING AND PAIN. PT STATES WAS SENT HOME FROM AN INPATIENT STAY THIS AM. WHEN HE GOT HOME HE NOTICED HIS FEET WERE SWOLLEN AND HURT. PT CONCERNED THAT THE NEW MEDS HE WAS RX HAS CAUSED THIS. Source: patient Exam Limitations: no limitations History of Present Illness Date Seen by Provider: Jun 07, 2022 Time Seen by Provider: 17:00 Initial Comments Patient is a 36-year-old male who presents to the emergency department for evaluation of bilateral foot swelling and pain. Patient was discharged from this hospital this morning after an inpatient stay. He states he was placed on several new medications while in the hospital. He wanted to be evaluated in the ER to make sure that these medicines were not the cause of the swelling/pain. States the pain is relatively mild and is achy in nature. Denies any shortness of breath, chest pain, or other symptoms at this time. He states he overall feels much better now than prior to his admission to the hospital. Allergies and Home Medications Allergies Uncoded Allergies: STEROID (Adverse Reaction, Unknown, 'CHEST FELT TIGHT', 11/28/14) Patient Home Medication List Home Medication List Reviewed: Yes Amlodipine Besylate (Amlodipine Besylate) 10 Mg Tablet, 10 MG PO DAILY Prescribed by: CHEKO TAVERAS on 06/06/22 1253 Aspirin (Aspirin EC) 81 Mg Tablet.dr, 81 MG PO DAILY Prescribed by: CHEKO TAVERAS on 06/06/22 1253 Cefdinir (Cefdinir) 300 Mg Capsule, 300 MG PO DAILY Prescribed by: CHEKO TAVERAS on 06/06/22 1253 Clonidine HCl (Clonidine HCl) 0.2 Mg Tablet, 0.2 MG PO BID Prescribed by: CHEKO TAVERAS on 06/07/22 1127 Insulin Aspart (Novolog) 100 Unit/Ml Susp, UNIT SQ PER PUMP, (Reported) Entered as Reported by: VIOLA FALL on 12/14/20 1001 Metoprolol Tartrate (Metoprolol Tartrate) 50 Mg Tablet, 50 MG PO BID Prescribed by: CHEKO TAVERAS on 06/06/22 1345 Sodium Bicarbonate (Sodium Bicarbonate) 650 Mg Tablet, 1,300 MG PO TID Prescribed by: CHEKO TAVERAS on 06/06/22 1253 Discontinued Medications Acetaminophen (Tylenol) 325 Mg Tablet, 650 MG PO Q8H PRN for PAIN-MILD (1-4), (Reported) Discontinued Reason: No Longer Taking Entered as Reported by: VIOLA FALL on 11/29/21 115 Amlodipine Besylate (Amlodipine Besylate) 10 Mg Tablet, 5 MG PO HS, (Reported) Discontinued Reason: No Longer Taking Entered as Reported by: VIOLA FALL on 12/14/20 100 Atorvastatin Calcium (Atorvastatin Calcium) 20 Mg Tablet, 20 MG PO HS, (Reported) Discontinued Reason: No Longer Taking Entered as Reported by: VIOLA FALL on 11/29/21 115 Furosemide (Furosemide) 20 Mg Tablet, 20 MG PO DAILY, (Reported) Discontinued Reason: No Longer Taking Entered as Reported by: KAVITHA TUCKER on 11/28/212144 Gabapentin (Neurontin) 300 Mg Capsule, 300 MG PO HS, (Reported) Discontinued Reason: No Longer Taking Entered as Reported by: VIOLA FALL on 11/29/211151 Losartan Potassium (Losartan Potassium) 100 Mg Tablet, 100 MG PO DAILY, (Reported) Discontinued Reason: No Longer Taking Entered as Reported by: KAVITHA TUCKER on 11/28/212144 Metoprolol Succinate (Metoprolol Succinate) 100 Mg Tab.er.24h, 100 MG PO DAILY, (Reported) Discontinued Reason: No Longer Taking Entered as Reported by: KAVITHA TUCKER on 11/28/212144 Ondansetron (Ondansetron Odt) 4 Mg Tab.rapdis, 4 MG SL Q4H PRN for NAUSEA/VOMITING Discontinued Reason: No Longer Taking Prescribed by: Daniel Rene on 03/28/22 152 Pantoprazole Sodium (Pantoprazole Sodium) 40 Mg Tablet.dr, 40 MG PO DAILY, (Reported) Discontinued Reason: No Longer Taking Entered as Reported by: VIOLA FALL on 12/14/20 100 Promethazine HCl (Promethazine Suppository) 25 Mg Supp.rect, 25 MG RC Q6H PRN for NAUSEA/VOMITING-2ND LINE Discontinued Reason: No Longer Taking Prescribed by: Daniel Rene on 03/28/22 152 Sodium Bicarbonate (Sodium Bicarbonate) 650 Mg Tablet, 650 MG PO BID, (Reported) Discontinued Reason: No Longer Taking Entered as Reported by: KAVITHA TUCKER on 11/28/212144 Review of Systems Constitutional: no symptoms reported EENTM: no symptoms reported Respiratory: no symptoms reported Cardiovascular: no symptoms reported Gastrointestinal: no symptoms reported Genitourinary: no symptoms reported Musculoskeletal: see HPI Skin: no symptoms reported Psychiatric/Neurological: No Symptoms Reported Past Cwtfspm-Pdmvow-Hcwwii Hx Patient Social History Tobacco Use?: No Substance use?: No Alcohol Use?: No Pt feels they are or have been: No Immunizations Up To Date Tetanus Booster (TDap): Less than 5yrs First/Initial COVID19 Vaccinat: 2020 Second COVID19 Vaccination Marcelo: 2020 Third COVID19 Vaccination Date: 2020 Past Medical History Surgery/Hospitalization HX: IDDM TYPE 1, RENAL FAILURE APPENDECTOMY, ORTHOPEDIC, Surgeries: Yes Orthopedic Respiratory: No Currently Using CPAP: No Currently Using BIPAP: No Cardiac: Yes Hypertension Neurological: No Reproductive Disorders: No Genitourinary: No Renal Failure Gastrointestinal: No Musculoskeletal: No Endocrine: Yes Diabetes, Insulin dep Cancer: No Psychosocial: No Integumentary: No Blood Disorders: No Adverse Reaction/Blood Tranf: No Family Medical History No Pertinent Family Hx Physical Exam Vital Signs Vital Signs - First Documented 06/07/22 16:51 Temp 36.4 Pulse 78 Resp 20 B/P (MAP) 149/106 (120) Pulse Ox 96 O2 Delivery Room Air Capillary Refill : Less Than 3 Seconds Height, Weight, BMI Height: 5'9.00" Weight: 150lbs. 0.0oz. 68.089164ph; 25.00 BMI Method:Stated General Appearance: WD/WN, no apparent distress HEENT: PERRL/EOMI, normal ENT inspection, TMs normal, pharynx normal Neck: non-tender, full range of motion, supple, normal inspection Cardiovascular: regular rate, rhythm Respiratory: chest non-tender, lungs clear, normal breath sounds, no respiratory distress, no accessory muscle use Gastrointestinal: normal bowel sounds, non tender, soft Neurologic/Psychiatric: no motor/sensory deficits, alert, normal mood/affect, oriented x 3 Skin: normal color, warm/dry Mild nonpitting edema noted to bilateral feet/ankles Progress/Results/Core Measures Results/Orders Vital Signs/I&O 06/07/22 06/07/22 16:51 17:18 Temp 36.4 Pulse 78 80 Resp 20 20 B/P (MAP) 149/106 (120) 151/107 Pulse Ox 96 96 O2 Delivery Room Air Room Air Blood Pressure Mean: 120 Progress Progress Note : Progress Note Patient is nontoxic and well-hydrated on exam. Vital signs are reassuring. Mild nonpitting edema noted to the bilateral feet/ankles. DP pulses strong in both feet. Neurovascular function appears intact. No indication for any other specific diagnostics at this time. Patient was placed on amlodipine which can cause peripheral edema however he was just started on the medication. In the light of the lack of other concerning symptoms, it is appropriate for the patient to follow-up with his PCP to discuss the symptoms and potential treatments. Discussed indications to return to the ER for further urgent evaluation. Patient verbalized understanding. Departure Impression Primary Impression: Bilateral lower extremity edema Disposition: 01 HOME, SELF-CARE Condition: Stable Departure-Patient Inst. Decision time for Depature: 17:10 Referrals: DIONNE FORRESTER DO (PCP/Family) Primary Care Physician Patient Instructions: Dependent Edema (DC) Add. Discharge Instructions: Call your sales rep tomorrow to discuss the swelling and to see if any medication changes or follow-up is needed to address it. Please return to the emergency department for any shortness of breath, significantly increased pain, or increased asymmetrical swelling in only one of your legs. All discharge instructions reviewed with patient and/or family. Voiced understanding. DANIEL RENE APRN Jun 07, 2022 17:13
[2022-06-07 17:18] VITALS: BP 151/107
== END 2022-06-07 17:18 | disposition home or self-care (01) ==
LOC: EDUNIT# 16:39 → ER 16:40
DX: M79.89 Other specified soft tissue disorders (principal); E10.9 Type 1 diabetes mellitus without complications; Z79.82 Long term (current) use of aspirin; Z79.4 Long term (current) use of insulin; Z79.899 Other long term (current) drug therapy
CPT/HCPCS: 99281

== ENCOUNTER 2022-08-30 13:07 | Emergency (ER) | payer MEDICARE, MEDICAID ==
[~2022-08-30] VITALS: Ht 175.2 cm; Wt 81.8 kg
[~2022-08-30 13:07] MED LIST changes: -INSU100I29 SQ; +INSU100I30 SQ
[2022-08-30 13:16] VITALS: BP 192/108
--- NOTE | 2022-08-30 13:32 | ED General ---
General Stated Complaint: KIDNEY ISSUES | Source of Information: Patient Exam Limitations: No Limitations History of Present Illness Date Seen by Provider: Aug 30, 2022 Time Seen by Provider: 13:15 Initial Comments 37-year-old male presents to the ED for abnormal labs. Patient states that he had blood work drawn yesterday by his python developer, states his python developer called him today and told him to come to the ER. Patient is unsure what his abnormal labs were. Patient denies fever, chest pain, abdominal pain, nausea, vomiting, diarrhea. Reports in the evenings he has lower extremity edema, none currently. Reports shortness of air which is been going on for 3 to 4 weeks since he was diagnosed with pneumonia. States he completed the antibiotic for the pneumonia. Denies change in urine output. Past medical history includes CKD, not on dialysis, hypertension and diabetes. Allergies and Home Medications Allergies Uncoded Allergies: STEROID (Adverse Reaction, Unknown, 'CHEST FELT TIGHT', 11/28/14) Patient Home Medication List Home Medication List Reviewed: Yes Amlodipine Besylate (Amlodipine Besylate) 10 Mg Tablet, 10 MG PO DAILY Prescribed by: CHEKO TAVERAS on 06/06/22 1253 Amoxicillin/Potassium Clav (Amox Tr-K Clv 875-125 mg Tab) 875 Mg-125 Mg Tablet, 1 EACH PO BID Prescribed by: Myra Bello on 08/30/22 1617 Aspirin (Aspirin EC) 81 Mg Tablet.dr, 81 MG PO DAILY Prescribed by: CHEKO TAVERAS on 06/06/22 1253 Cefdinir (Cefdinir) 300 Mg Capsule, 300 MG PO DAILY Prescribed by: CHEKO TAVERAS on 06/06/22 1253 Clonidine HCl (Clonidine HCl) 0.2 Mg Tablet, 0.2 MG PO BID Prescribed by: CHEKO TAVERAS on 06/07/22 1127 Doxycycline Hyclate (Doxycycline Hyclate) 100 Mg Tablet, 100 MG PO BID Prescribed by: Myra Bello on 08/30/22 1617 Hydralazine HCl (Hydralazine HCl) 25 Mg Tablet, 25 MG PO TID Prescribed by: Myra Bello on 08/30/22 1617 Insulin Aspart (Novolog) 100 Unit/Ml Susp, UNIT SQ PER PUMP, (Reported) Entered as Reported by: VIOLA FALL on 12/14/20 1001 Metoprolol Tartrate (Metoprolol Tartrate) 50 Mg Tablet, 50 MG PO BID Prescribed by: CHEKO TAVERAS on 06/06/22 1345 Patiromer Calcium Sorbitex (Veltassa) 8.4 Gram Powd.pack, 8.4 GM PO BID Prescribed by: Myra Bello on 08/30/22 1617 Sodium Bicarbonate (Sodium Bicarbonate) 650 Mg Tablet, 1,300 MG PO TID Prescribed by: CHEKO TAVERAS on 06/06/22 1253 Review of Systems Review of Systems Constitutional: see HPI Past Eusymsg-Nyoomt-Gkdmhl Hx Immunizations Up To Date Tetanus Booster (TDap): Less than 5yrs First/Initial COVID19 Vaccinat: 2020 Second COVID19 Vaccination Marcelo: 2020 Third COVID19 Vaccination Date: 2020 Past Medical History Surgery/Hospitalization HX: IDDM TYPE 1, RENAL FAILURE APPENDECTOMY, ORTHOPEDIC, Surgeries: Yes Orthopedic Respiratory: No Currently Using CPAP: No Currently Using BIPAP: No Cardiac: Yes Hypertension Neurological: No Reproductive Disorders: No Genitourinary: No Renal Failure Gastrointestinal: No Musculoskeletal: No Endocrine: Yes Diabetes, Insulin dep Cancer: No Psychosocial: No Integumentary: No Blood Disorders: No Adverse Reaction/Blood Tranf: No Family Medical History No Pertinent Family Hx Physical Exam Vital Signs Vital Signs - First Documented 08/30/22 13:16 Temp 36.0 Pulse 81 Resp 16 B/P (MAP) 192/108 (136) Pulse Ox 97 O2 Delivery Room Air Capillary Refill : Height, Weight, BMI Height: 5'9.00" Weight: 150lbs. 0.0oz. 68.787868ks; 25.00 BMI Method:Stated General Appearance: No Apparent Distress, WD/WN Neck: Non Tender, Supple Respiratory: Lungs Clear, Normal Breath Sounds, No Accessory Muscle Use, No Respiratory Distress Cardiovascular: Regular Rate, Rhythm, No Edema, No Murmur Extremity: Normal Inspection, Normal Range of Motion Neurologic/Psychiatric: Alert, Normal Mood/Affect Skin: Normal Color, Warm/Dry Progress/Results/Core Measures Suspected Sepsis SIRS Temperature: Pulse: Respiratory Rate: Laboratory Tests 08/30/22 13:43: White Blood Count 8.4 Blood Pressure / Mean: Laboratory Tests 08/30/22 13:43: Creatinine 7.32H, Platelet Count 307 Results/Orders Lab Results Laboratory Tests Test 08/30/22 13:43 Range/Units White Blood Count 8.4 4.3-11.0 10^3/uL Red Blood Count 3.61 L 4.30-5.52 10^6/uL Hemoglobin 10.9 L 13.3-17.7 g/dL Hematocrit 33 L 40-54 % Mean Corpuscular Volume 91 80-99 fL Mean Corpuscular Hemoglobin 30 25-34 pg Mean Corpuscular Hemoglobin Concent 33 32-36 g/dL Red Cell Distribution Width 14.7 H 10.0-14.5 % Platelet Count 307 130-400 10^3/uL Mean Platelet Volume 10.3 9.0-12.2 fL Immature Granulocyte % (Auto) 0 % Neutrophils (%) (Auto) 71 42-75 % Lymphocytes (%) (Auto) 21 12-44 % Monocytes (%) (Auto) 7 0-12 % Eosinophils (%) (Auto) 1 0-10 % Basophils (%) (Auto) 0 0-10 % Neutrophils # (Auto) 6.0 1.8-7.8 10^3/uL Lymphocytes # (Auto) 1.8 1.0-4.0 10^3/uL Monocytes # (Auto) 0.6 0.0-1.0 10^3/uL Eosinophils # (Auto) 0.1 0.0-0.3 10^3/uL Basophils # (Auto) 0.0 0.0-0.1 10^3/uL Immature Granulocyte # (Auto) 0.0 0.0-0.1 10^3/uL Sodium Level 137 135-145 MMOL/L Potassium Level 5.6 H 3.6-5.0 MMOL/L Chloride Level 105 98-107 MMOL/L Carbon Dioxide Level 16 L 21-32 MMOL/L Anion Gap 16 H 5-14 MMOL/L Blood Urea Nitrogen 53 H 7-18 MG/DL Creatinine 7.32 H 0.60-1.30 MG/DL Estimat Glomerular Filtration Rate 9 BUN/Creatinine Ratio 7 Glucose Level 168 H 70-105 MG/DL Calcium Level 6.8 L 8.5-10.1 MG/DL Phosphorus Level 7.4 H 2.3-4.7 MG/DL My Orders Orders - MYRA BELLO APRN Basic Metabolic Panel (08/30/22 13:30) Cbc With Automated Diff (08/30/22 13:30) Chest Pa/Lat (2 View) (08/30/22 13:30) Ekg Tracing (08/30/22 13:30) Ed Iv/Invasive Line Start (08/30/22 13:32) Phosphorus (08/30/22 13:42) Hydralazine Tablet (Apresoline Tablet) (08/30/22 16:15) Medications Given in ED Current Medications Medications Dose Ordered Sig/Vasu Route Start Time Stop Time Status Last Admin Dose Admin Hydralazine HCl 25 mg ONCE ONCE PO 08/30/22 16:15 08/30/22 16:16 DC 08/30/22 16:38 25 MG Vital Signs/I&O 08/30/22 13:16 Temp 36.0 Pulse 81 Resp 16 B/P (MAP) 192/108 (136) Pulse Ox 97 O2 Delivery Room Air Capillary Refill : Progress Note : Time: 13:35 Progress Note Patient seen and evaluated, resting comfortably in bed, no acute distress. On exam and symptoms, will obtain CBC, BMP, EKG, and chest x-ray. ECG Initial ECG Impression Date: Aug 30, 2022 Initial ECG Impression Time: 13:51 Initial ECG Rhythm: Normal Sinus Initial ECG Intervals: Normal Initial ECG Impression: Nonspecific Changes Initial ECG Comparisson: Changed Comment Previous EKG showed T wave inversion in V2, V3, V4, V6, and lead II, these T wave versions have reverted to normal. Patient still has T wave inversion in lead I which was similar to previous. Diagnostic Imaging Diagonstic Imaging: Xray Plain Films/CT/US/NM/MRI: chest Comments [facility], [place] NAME: SUSHMA OZUNA [facility] REC#: [id number] PT STATUS: REG ER : 1985 PHYSICIAN: MYRA BELLO APRN ADMIT DATE: 08/30/22/ER Signed Date of Exam:08/30/22 CHEST PA/LAT (2 VIEW) EXAMINATION: Chest 2 view HISTORY: SOA COMPARISON: 06/04/2022. FINDINGS: Heart size and pulmonary vasculature are normal. There is elevation of the right hemidiaphragm with right basilar opacities. There may be small right pleural effusion. There is blunting of the left costophrenic angle which may represent a small left pleural effusion as well. No pneumothorax. The osseous structures are intact. IMPRESSION: 1. Bilateral pleural effusions, right greater than left. 2. Right lower lung atelectasis or consolidation. Dictated by: Dictated on workstation # [id number] Dict: 08/30/22 1427 Trans: 08/30/22 1433 [id number] [id number] Interpreted by: KIA MELÉNDEZ DO Electronically signed by: KIA MELÉNDEZ DO 08/30/22 143 Departure Impression Primary Impression: Chronic kidney disease Additional Impressions: Hyperkalemia Pneumonia Hypertension Disposition: HOME, SELF-CARE Condition: Stable Departure-Patient Inst. Decision time for Depature: 16:14 Referrals: [facility] [place] Primary Care Physician Patient Instructions: Hyperkalemia (DC) Scripts Doxycycline Hyclate (Doxycycline Hyclate) 100 Mg Tablet 100 MG PO BID for 5 Days, #10 TAB 0 Refills Prov: MYRA BELLO APRN 08/30/22 Amoxicillin/Potassium Clav (Amox Tr-K Clv 875-125 mg Tab) 875 Mg-125 Mg Tablet 1 EACH PO BID for 5 Days, #10 TAB 0 Refills Prov: MYRA BELLO APRN 08/30/22 Hydralazine HCl (Hydralazine HCl) 25 Mg Tablet 25 MG PO TID for 10 Days, #30 TAB 0 Refills Prov: MYRA BELLO APRN 08/30/22 Patiromer Calcium Sorbitex (Veltassa) 8.4 Gram Powd.pack 8.4 GM PO BID for 5 Days, #10 EACH 0 Refills Prov: MYRA BELLO APRN 08/30/22 MYRA BELLO APRN Aug 30, 2022 13:32
[2022-08-30 13:52] LABS: BASOPHILS % (AUTO) 0 % (0-10); EOSINOPHILS # (AUTO) 0.1 10^3/uL (0.0-0.3); EOSINOPHILS % (AUTO) 1 % (0-10); HEMATOCRIT 33 % (40-54); HEMOGLOBIN 10.9 g/dL (13.3-17.7); LYMPHOCYTES # (AUTO) 1.8 10^3/uL (1.0-4.0); LYMPHOCYTES % (AUTO) 21 % (12-44); MEAN CORPUSCULAR HEMOGLOBIN 30 pg (25-34); MEAN CORPUSCULAR HGB CONC 33 g/dL (32-36); MEAN CORPUSCULAR VOLUME 91 fL (80-99); MEAN PLATELET VOLUME 10.3 fL (9.0-12.2); MONOCYTES # (AUTO) 0.6 10^3/uL (0.0-1.0); MONOCYTES % (AUTO) 7 % (0-12); NEUTROPHILS % (AUTO) 71 % (42-75); PLATELET COUNT 307 10^3/uL (130-400); WHITE BLOOD COUNT 8.4 10^3/uL (4.3-11.0)
[2022-08-30 14:03] LABS: POTASSIUM 5.6 MMOL/L (3.6-5.0)
[2022-08-30 14:04] LABS: CALCIUM 6.8 MG/DL (8.5-10.1)
[2022-08-30 14:08] LABS: PHOSPHORUS 7.4 MG/DL (2.3-4.7)
[2022-08-30 14:09] LABS: CREATININE SERUM 7.32 MG/DL (0.60-1.30)
--- NOTE | 2022-08-30 14:31 | Diagnostic Imaging Report ---
EXAMINATION: Chest 2 view HISTORY: SOA COMPARISON: 06/04/2022. FINDINGS: Heart size and pulmonary vasculature are normal. There is elevation of the right hemidiaphragm with right basilar opacities. There may be small right pleural effusion. There is blunting of the left costophrenic angle which may represent a small left pleural effusion as well. No pneumothorax. The osseous structures are intact. IMPRESSION: 1. Bilateral pleural effusions, right greater than left. 2. Right lower lung atelectasis or consolidation. Dictated by: Dictated on workstation # [id number]
[2022-08-30] MEDS ORDERED: hydrALAZINE (APRESOLINE) 25 MG TAB PO ONE (16:15)
[2022-08-30] MEDS ORDERED: AMOX1TAB12 PO (16:17)
[2022-08-30] MEDS ORDERED: DOXY100T2 PO (16:17)
[2022-08-30] MEDS ORDERED: PATI8.4P PO (16:17)
[2022-08-30] MEDS ORDERED: HYDR-3923 PO (16:17)
== END 2022-08-30 16:40 | disposition home or self-care (01) ==
LOC: EDUNIT# 13:07 → ER 13:10
DX: I12.9 Hypertensive chronic kidney disease with stage 1 through stage 4 chronic kidney disease, or unspecified chronic kidney disease (principal); E10.22 Type 1 diabetes mellitus with diabetic chronic kidney disease; N18.9 Chronic kidney disease, unspecified; J18.9 Pneumonia, unspecified organism; E87.5 Hyperkalemia
CPT/HCPCS: 36415; 71046; 80048; 84100; 85025; 93005

== ENCOUNTER 2022-09-12 08:09 | Emergency (ER) | payer MEDICARE, MEDICAID ==
[~2022-09-12] VITALS: Ht 177 cm; Wt 88.9 kg
[~2022-09-12 08:09] MED LIST changes: +AMOX1TAB12 PO; +DOXY100T2 PO; -GABA300S2 PO; +GABA300S3 PO; +HYDR-3923 PO; +PATI8.4P PO
[2022-09-12 08:39] LABS: BASOPHILS % (AUTO) 1 % (0-10); EOSINOPHILS # (AUTO) 0.1 10^3/uL (0.0-0.3); EOSINOPHILS % (AUTO) 2 % (0-10); HEMATOCRIT 29 % (40-54); HEMOGLOBIN 9.8 g/dL (13.3-17.7); LYMPHOCYTES # (AUTO) 1.2 10^3/uL (1.0-4.0); LYMPHOCYTES % (AUTO) 16 % (12-44); MEAN CORPUSCULAR HEMOGLOBIN 30 pg (25-34); MEAN CORPUSCULAR HGB CONC 34 g/dL (32-36); MEAN CORPUSCULAR VOLUME 90 fL (80-99); MEAN PLATELET VOLUME 10.4 fL (9.0-12.2); MONOCYTES # (AUTO) 0.6 10^3/uL (0.0-1.0); MONOCYTES % (AUTO) 8 % (0-12); NEUTROPHILS # (AUTO) 5.3 10^3/uL (1.8-7.8); NEUTROPHILS % (AUTO) 73 % (42-75); PLATELET COUNT 369 10^3/uL (130-400); WHITE BLOOD COUNT 7.3 10^3/uL (4.3-11.0)
--- NOTE | 2022-09-12 08:46 | ED Neurological Problem ---
General Chief Complaint: Neuro-Stroke Like Symptoms Stated Complaint: STROKE-LIKE SYMPTOMS Nursing Triage Note: PT STATES RT FACIAL NUMBNESS AND RT ARM AND LEG WEAK THAT STARTED ABOUT 0415, STATES BLOOD SUGAR WAS 65 ON HIS MONITOR, CURRENTLY 98 ON HIS INSULIN PUMP. LT FACIAL DROOP Source: patient, family (daughter) Exam Limitations: no limitations History of Present Illness Date Seen by Provider: September 12, 2022 Time Seen by Provider: 08:16 Initial Comments Patient is a 37-year-old male with a history of brittle diabetes, end-stage renal disease not quite yet on hemodialysis who presents to the emergency room with a chief complaint of right-sided facial numbness, right arm and leg weakness and numbness. Patient states that he woke up with the symptoms at about 4 AM. He states he had to pound on the wall to get a family member to come help him. He states when he attempted to get up he basically fell into the recliner chair at the bedside. He states his symptoms are improving. Family had to wait for other family members to come to the house so that an older daughter could bring him to the hospital. He denies headache currently, had a mild 1 when he woke up. He did have nausea. He vomited. No shortness of breath or chest pain. No bowel or bladder complaints. He still makes urine daily. No dysuria urgency or frequency. He states when he woke up this morning his blood sugar read 65 on his insulin pump. Currently over 100 in the emerge ncy department. He has had a little dysarthria, his daughter states that seems to be improving. On exam he actually has left-sided facial droop. Patient states that he took his daily morning medicines. He is quite hypertensive with a diastolic of 108. Not tachycardic. Not hypoxic. Timing/Duration: 4-6 hours Severity: mild Associated Symptoms: other (Nausea vomiting) Allergies and Home Medications Allergies Uncoded Allergies: STEROID (Adverse Reaction, Unknown, 'CHEST FELT TIGHT', 11/28/14) Patient Home Medication List Home Medication List Reviewed: Yes Amlodipine Besylate (Amlodipine Besylate) 10 Mg Tablet, 10 MG PO DAILY Prescribed by: CHEKO TAVERAS on 06/06/22 1253 Amoxicillin/Potassium Clav (Amox Tr-K Clv 875-125 mg Tab) 875 Mg-125 Mg Tablet, 1 EACH PO BID Prescribed by: Myra House on 08/30/22 1617 Aspirin (Aspirin EC) 81 Mg Tablet.dr, 81 MG PO DAILY Prescribed by: CHEKO TAVERAS on 06/06/22 1253 Cefdinir (Cefdinir) 300 Mg Capsule, 300 MG PO DAILY Prescribed by: CHEKO TAVERAS on 06/06/22 1253 Clonidine HCl (Clonidine HCl) 0.2 Mg Tablet, 0.2 MG PO BID Prescribed by: CHEKO TAVERAS on 06/07/22 1127 Doxycycline Hyclate (Doxycycline Hyclate) 100 Mg Tablet, 100 MG PO BID Prescribed by: Myra House on 08/30/22 161 Hydralazine HCl (Hydralazine HCl) 25 Mg Tablet, 25 MG PO TID Prescribed by: Myra House on 08/30/22 161 Insulin Aspart (Novolog) 100 Unit/Ml Susp, UNIT SQ PER PUMP, (Reported) Entered as Reported by: VIOLA FALL on 12/14/20 1001 Metoprolol Tartrate (Metoprolol Tartrate) 50 Mg Tablet, 50 MG PO BID Prescribed by: CHEKO TAVERAS on 06/06/22 1345 Patiromer Calcium Sorbitex (Veltassa) 8.4 Gram Powd.pack, 8.4 GM PO BID Prescribed by: Myra House on 08/30/22 161 Sodium Bicarbonate (Sodium Bicarbonate) 650 Mg Tablet, 1,300 MG PO TID Prescribed by: CHEKO TAVERAS on 06/06/22 1253 Review of Systems Review of Systems Constitutional: see HPI Eyes: No Symptoms Reported Ears, Nose, Mouth, Throat: no symptoms reported Respiratory: no symptoms reported Gastrointestinal: nausea, vomiting Genitourinary: decreased output (Chronic) Musculoskeletal: no symptoms reported Skin: no symptoms reported Psychiatric/Neurological: Headache (Mild headache upon waking), Numbness (Right arm, right legimproving now), Weakness (Weakness in right arm and right leg), Other (Speech difficulty) All Other Systems Reviewed Negative Unless Noted: Yes Past Vhkvaut-Evylmx-Heojbt Hx Immunizations Up To Date Tetanus Booster (TDap): Less than 5yrs First/Initial COVID19 Vaccinat: 2020 Second COVID19 Vaccination Marcelo: 2020 Third COVID19 Vaccination Date: 2020 Past Medical History Surgery/Hospitalization HX: CKD, DM, HTN Surgeries: Yes Orthopedic Respiratory: No Currently Using CPAP: No Currently Using BIPAP: No Cardiac: Yes Hypertension Neurological: No Reproductive Disorders: No Genitourinary: No Renal Failure Gastrointestinal: No Musculoskeletal: No Endocrine: Yes Diabetes, Insulin dep Cancer: No Psychosocial: No Integumentary: No Blood Disorders: No Adverse Reaction/Blood Tranf: No Family Medical History No Pertinent Family Hx Physical Exam Vital Signs Vital Signs - First Documented 09/12/22 08:12 Temp 36.3 Pulse 74 Resp 18 B/P (MAP) 185/106 (132) Pulse Ox 96 O2 Delivery Room Air Capillary Refill : Less Than 3 Seconds Height, Weight, BMI Height: 5'9.00" Weight: 150lbs. 0.0oz. [id number]; 28.00 BMI Method:Stated General Appearance: WD/WN, no apparent distress HEENT: PERRL/EOMI Neck: supple Respiratory: lungs clear, normal breath sounds, no respiratory distress, no accessory muscle use Cardiovascular: regular rate, rhythm, other (Edema bilateral lower extremities, bilateral hands and wrists) Gastrointestinal: normal bowel sounds, non tender, soft Extremities: normal range of motion, non-tender, pedal edema Neurologic/Psychiatric: alert, normal mood/affect, oriented x 3, motor weakness (Right leg positive drift) Crainal Nerves: abnormal speech (Mild dysarthria), facial asymmetry, facial droop (Left-sided); No facial paresthesias, No gaze palsy Motor/Sensory: weak motor strength RLE Skin: warm/dry, pallor Stroke Onset of Symptoms Date of Onset of Symptoms: September 12, 2022 Time of Symptom Onset: 04:00 Symptoms onset unknown: Yes NIH Stroke Scale Assessment Select: Initial Level of Consciousness: 0=Alert (0), Level of Consciousness- Questions: 0=Answers both month/age (0), LOC Commands: 0=Performs both tasks (0), Visual Cope: 0=No visual loss (0), Facial Movement (Facial Paresis): 2=Partial paralysis (2), Motor Function-Arms Right: 0=No drift (0), Motor Function-Arms Left: 0=No drift (0), Motor Function-Legs Right: 1=Drift (1), Motor Function-Legs Left: 0=No drift (0), Limb Ataxia: 0=Absent (0), Sensory: 0=Normal:no loss (0), Best Language: 0=No aphasia (0), Dysarthria: 1=Mild to moderate loss (1), Extinction & Inattention: 0=No abnormality (0), Total: 4 IV - TPa Received IV - TPa Procedure Performed?: No Progress/Results/Core Measures Results/Orders Lab Results Laboratory Tests Test 09/12/22 08:20 09/12/22 08:21 09/12/22 13:05 09/12/22 13:16 Range/Units White Blood Count 7.3 4.3-11.0 10^3/uL Red Blood Count 3.25 L 4.30-5.52 10^6/uL Hemoglobin 9.8 L 13.3-17.7 g/dL Hematocrit 29 L 40-54 % Mean Corpuscular Volume 90 80-99 fL Mean Corpuscular Hemoglobin 30 25-34 pg Mean Corpuscular Hemoglobin Concent 34 32-36 g/dL Red Cell Distribution Width 14.5 10.0-14.5 % Platelet Count 369 130-400 10^3/uL Mean Platelet Volume 10.4 9.0-12.2 fL Immature Granulocyte % (Auto) 0 % Neutrophils (%) (Auto) 73 42-75 % Lymphocytes (%) (Auto) 16 12-44 % Monocytes (%) (Auto) 8 0-12 % Eosinophils (%) (Auto) 2 0-10 % Basophils (%) (Auto) 1 0-10 % Neutrophils # (Auto) 5.3 1.8-7.8 10^3/uL Lymphocytes # (Auto) 1.2 1.0-4.0 10^3/uL Monocytes # (Auto) 0.6 0.0-1.0 10^3/uL Eosinophils # (Auto) 0.1 0.0-0.3 10^3/uL Basophils # (Auto) 0.0 0.0-0.1 10^3/uL Immature Granulocyte # (Auto) 0.0 0.0-0.1 10^3/uL Prothrombin Time 13.0 12.2-14.7 SEC INR Comment 0.9 0.8-1.4 Activated Partial Thromboplast Time 30 24-35 SEC D-Dimer 1.25 H 0.00-0.49 UG/ML Sodium Level 136 135-145 MMOL/L Potassium Level 4.9 3.6-5.0 MMOL/L Chloride Level 103 98-107 MMOL/L Carbon Dioxide Level 16 L 21-32 MMOL/L Anion Gap 17 H 5-14 MMOL/L Blood Urea Nitrogen 74 H 7-18 MG/DL Creatinine 9.88 H 0.60-1.30 MG/DL Estimat Glomerular Filtration Rate 6 BUN/Creatinine Ratio 7 Glucose Level 113 H 70-105 MG/DL Calcium Level 7.9 L 8.5-10.1 MG/DL Corrected Calcium 8.2 L 8.5-10.1 MG/DL Total Bilirubin 0.4 0.1-1.0 MG/DL Aspartate Amino Transf (AST/SGOT) 25 5-34 U/L Alanine Aminotransferase (ALT/SGPT) 21 0-55 U/L Alkaline Phosphatase 86 40-136 U/L Troponin I 1.054 *H <0.028 NG/ML Total Protein 6.5 6.4-8.2 GM/DL Albumin 3.6 3.2-4.5 GM/DL Glucometer 120 H 176 H 70-110 MG/DL Urine Color YELLOW Urine Clarity CLEAR Urine pH 6.0 5-9 Urine Specific [place] 1.020 1.016-1.022 Urine Protein 3+ H NEGATIVE Urine Glucose (UA) 1+ H NEGATIVE Urine Ketones NEGATIVE NEGATIVE Urine Nitrite NEGATIVE NEGATIVE Urine Bilirubin NEGATIVE NEGATIVE Urine Urobilinogen 0.2 < = 1.0 MG/DL Urine Leukocyte Esterase NEGATIVE NEGATIVE Urine RBC (Auto) NEGATIVE NEGATIVE Urine RBC NONE /HPF Urine WBC NONE /HPF Urine Crystals NONE /LPF Urine Bacteria NEGATIVE /HPF Urine Casts NONE /LPF Urine Mucus NEGATIVE /LPF Urine Culture Indicated NO My Orders Orders - BRII PRECIADO MD Cbc With Automated Diff (09/12/22 08:26) Protime With Inr (09/12/22 08:26) Partial Thromboplastin Time (09/12/22 08:26) Comprehensive Metabolic Panel (09/12/22 08:26) Fibrin Degradation Products (09/12/22 08:26) Troponin I [place] (09/12/22 08:) Ua Culture If Indicated (09/12/22 08:26) Chest 1 View, Ap/Pa Only (09/12/22 08:26) Ekg Tracing (09/12/22 08:26) Nothing By Mouth (09/12/22 Breakfast) Accucheck Stat ONCE (09/12/22 08:26) Ed Iv/Invasive Line Start (09/12/22 08:26) Ed Iv/Invasive Line Start (09/12/22 08:26) Vital Signs Stroke Patient Q15M (09/12/22 08:26) Ct Head Wo-R/O Stroke (09/12/22 08:26) O2 (09/12/22 08:26) Intake & Output ONCE (09/12/22 08:30) Monitor-Rhythm Ecg Trace Only (09/12/22 08:26) Dysphagia Screening Tool Q10MX1 (09/12/22 08:26) Post Thrombolytic Adminstratio (09/12/22 08:26) Lipid Panel (09/13/22 06:00) Ondansetron Injection (Zofran Injectio (09/12/22 09:00) Ondansetron Injection (Zofran Injectio (09/12/22 08:50) Mri Brain W/O Contrast (09/12/22 09:30) Mra Head W/O Contrast (09/12/22 09:30) Mra Neck W/O Contrast (09/12/22 09:30) Lorazepam Tablet (Ativan Tablet) (09/12/22 09:42) Aspirin Chewable Tablet (Baby Aspirin Ch (09/12/22 12:30) Accucheck Stat ONCE (09/12/22 13:13) General/Regular (09/12/22 Dinner) Medications Given in ED Current Medications Medications Dose Ordered Sig/Vasu Route Start Time Stop Time Status Last Admin Dose Admin Aspirin 162 mg ONCE ONCE PO 09/12/22 12:30 09/12/22 12:31 DC 09/12/22 12:25 162 MG Ondansetron HCl 4 mg ONCE ONCE IVP 09/12/22 09:00 09/12/22 09:01 DC 09/12/22 08:53 4 MG Vital Signs/I&O 09/12/22 08:12 Temp 36.3 Pulse 74 Resp 18 B/P (MAP) 185/106 (132) Pulse Ox 96 O2 Delivery Room Air Blood Pressure Mean: 132 Progress Progress Note #1: Time: 09:32 Progress Note Discussed at [address] Ferrer, stroke neurology. He believes the patient would not be a candidate really for any intervention. He does however believe the patient needs MRI brain without as well as MRA head and neck without contrast to further delineate possible intracranial/cervical pathology. These have been ordered. Progress Note #2: Time: 12:19 Progress Note Patient seen and evaluated by me. Evaluation today includes physical exam, CBC, Chem-12, coags, D-dimer, EKG, single view chest x-ray, CT head noncontrast, MRI brain noncontrast, MRA head and neck noncontrast. Pertinent physical exam findings well-developed male no acute distress slightly hypertensive on arrival with a diastolic greater than 100. Not tachycardic not hypoxic. Slightly dysarthric in speech. Mild left facial droop. No other focal deficits at presentation. Abdomen is soft. Heart is regular, lung sounds diminished at the bases bilaterally. No wheezing or increased work of breathing. Blood sugar on arrival 100. Differential diagnosis based on history and physical exam acute ischemic stroke, hypoglycemic episode, sepsis. Labs independently reviewed by me as well as evaluation of chest x-ray. Labs show a CBC with mildly decreased hemoglobin at 9.8 hematocrit 29, platelets 369. Chemistry shows normal electrolytes slightly decreased CO2 at 16. BUN of 74 creatinine of 9.88 serum glucose 113. Troponin elevated at 1.054 most likely secondary to renal failure. D-dimer elevated at 1.25, coags within normal limits. Chest x-ray shows infiltrate versus effusion in the right base. CT head noncontrast no acute infarct. EKG normal sinus rhythm without ectopy or ST segment change. Case was discussed with stroke neurology who recommended MRI/MRA which were accomplished here from the emergency department. MRI brain shows findings consistent with punctate infarcts left parietal. Patient continued to improve a little bit here in the emergency department although he stayed with some dysarthria. His blood pressure came down nicely without intervention 143/89. Patient states he had taken 2 baby aspirin prior to arrival 2 more were given for a total of 324 mg. Case was discussed with the PA on-call for the hospitalist service at [facility]. They have accepted the patient on behalf of Dr. Sullivan. Progress Note #3: Time: 17:42 Initial ECG Impression Date: September 12, 2022 Initial ECG Impression Time: 08:40 Initial ECG Rate: 74 Initial ECG Rhythm: Normal Sinus Initial ECG Intervals CA 170 QRS [address] QTc [address] segment change Diagnostic Imaging Diagonstic Imaging: Xray Plain Films/CT/US/NM/MRI: chest Comments [facility], [place] NAME: SUSHMA OZUNA [facility] REC#: [id number] PT STATUS: REG ER : 1985 PHYSICIAN: BRII PRECIADO MD ADMIT DATE: 09/12/22/ER Draft Date of Exam:09/12/22 CHEST 1 VIEW, AP/PA ONLY INDICATION: Stroke-like symptoms, right facial numbness, and weakness of right arm and leg. TECHNIQUE/COMPARISON: A single AP view of the chest was obtained with comparison made to the study of 06/04/2022. FINDINGS: There is volume loss in the right lung with right perihilar and basilar atelectasis and probable superimposed pneumonitis or atypical pneumonia. There is mild blunting of the right costophrenic sulcus. The left lung appears clear. IMPRESSION: Probable mild right pleural fluid and/or thickening with right perihilar and basilar infiltrate and atelectasis. This may be on the basis of pneumonitis or atypical pneumonia. Dictated on workstation # [id number] Dict: 09/12/22 0849 Trans: 09/12/22 0853 [id number] Interpreted by: MEENAKSHI VIZCARRA MD Electronically signed by: Diagonstic Imaging: CT Comments [facility] [place] NAME: SUSHMA OZUNA [facility] REC#: [id number] PT STATUS: REG ER : 1985 PHYSICIAN: BRII PRECIADO MD ADMIT DATE: 09/12/22/ER Draft Date of Exam:09/12/22 CT HEAD WO-R/O STROKE PROCEDURE: CT head wo r/o stroke. TECHNIQUE: Multiple contiguous axial images were obtained through the brain without the use of intravenous contrast. Auto Exposure Controls were utilized during the CT exam to meet ALARA standards for radiation dose reduction. INDICATION: Neurologic deficit with right weakness and paresthesia COMPARISON: 06/04/2022 CT HEAD: CT images of the head were obtained. FINDINGS: Ventricles and sulci are within normal limits for size. There is no intracranial hemorrhage identified. There is no abnormal mass effect or shift of midline structures. IMPRESSION: Unremarkable CT of the head. Dictated on workstation # [id number] Dict: 09/12/22 0857 Trans: 09/12/22 0900 [id number] Interpreted by: MEENAKSHI VIZCARRA MD Electronically signed by: Simon [facility], [place] NAME: SUSHMA OZUNA [facility] REC#: [id number] PT STATUS: REG ER : 1985 PHYSICIAN: BRII PRECIADO MD ADMIT DATE: 09/12/22/ER Draft Date of Exam:09/12/22 MRI BRAIN W/O CONTRAST PROCEDURE: MR imaging of the brain without contrast. TECHNIQUE: Multiplanar, multisequence MR imaging of the brain was performed without contrast. INDICATION: Left weakness. FINDINGS: The ventricles and sulci are within normal limits for size. Multiple punctate regions of T2 prolongation are noted within ramirez radiata and within the periventricular white matter of the left frontal lobe. In addition, there is a punctate region of restricted diffusion in the high right parietal white matter, compatible with micro-infarct. There is no abnormal mass effect or shift of the midline structures. No other restricted diffusion is seen to indicate other infarction. There is no MRI evidence of intracranial hemorrhage. Flow-voids are seen in the expected locations at [place]. IMPRESSION: Very mild cerebral white matter findings which may be chronic in nature. There is, however, evidence of punctate acute microinfarct in the high right parietal region which could potentially result in patient's symptoms of left weakness. Dictated on workstation # [id number] Dict: 09/12/22 1023 Trans: 09/12/22 1035 [id number] Interpreted by: MEENAKSHI VIZCARRA MD Electronically signed by: Simon [facility] [place] [place] NAME: SUSHMA OZUNA [facility] REC#: [id number] PT STATUS: REG ER : 1985 PHYSICIAN: BRII PRECIADO MD ADMIT DATE: 09/12/22/ER Draft Date of Exam:09/12/22 MRA HEAD W/O CONTRAST PROCEDURE: MR angiography of the brain without the use of contrast. TECHNIQUE: 3D coac-ay-nfhsvz non contrast enhanced MR angiography of the head was performed. A source data was reformatted into rotating MIP projections. INDICATION: Left facial droop with right upper extremity numbness and weakness. FINDINGS: The visible distal internal carotid and vertebral arteries are unremarkable as is the basilar artery. The anterior, middle, and posterior cerebral arteries demonstrate a normal appearance without evidence of occlusion. There is asymmetric prominence of the right posterior communicating artery. No aneurysm or vascular malformation is seen. There is no evidence of stenosis. IMPRESSION: No evidence of great vessel abnormality in the head. Dictated on workstation # [id number] Dict: 09/12/22 1039 Trans: 09/12/22 1044 [id number] Interpreted by: MEENAKSHI VIZCARRA MD Electronically signed by: Departure Impression Primary Impression: Ischemic stroke Additional Impression: ESRD (end stage renal disease) Disposition: 02 XFER SHT-TRM HOSP Condition: Stable Transfer Transfer Reason: Exceeds level of care Time Spoke to Accepting Phy: 12:00 Transfer Progress Notes DIscussed with SHARON Michelle on behalf of Dr Sullivan (hospitalist) Transfer Facility: [facility] Method of Transfer: EMS Departure-Patient Inst. Referrals: [facility] (PCP/Family) Primary Care Physician BRII PRECIADO MD September 12, 2022 08:46
[2022-09-12 08:49] LABS: FIBRIN DEGRADATION PRODUCTS 1.25 UG/ML (0.00-0.49); INR 0.9 (0.8-1.4)
[2022-09-12] MEDS ORDERED: ONDANSETRON 4 MG/2 ML (SDV) Z0FRAN ONE (08:50)
--- NOTE | 2022-09-12 08:53 | Diagnostic Imaging Report ---
INDICATION: Stroke-like symptoms, right facial numbness, and weakness of right arm and leg. TECHNIQUE/COMPARISON: A single AP view of the chest was obtained with comparison made to the study of 06/04/2022. FINDINGS: There is volume loss in the right lung with right perihilar and basilar atelectasis and probable superimposed pneumonitis or atypical pneumonia. There is mild blunting of the right costophrenic sulcus. The left lung appears clear. IMPRESSION: Probable mild right pleural fluid and/or thickening with right perihilar and basilar infiltrate and atelectasis. This may be on the basis of pneumonitis or atypical pneumonia. Dictated by: Dictated on workstation # [id number]
[2022-09-12 08:59] LABS: ALBUMIN 3.6 GM/DL (3.2-4.5); POTASSIUM 4.9 MMOL/L (3.6-5.0)
[2022-09-12 09:00] LABS: CALCIUM 7.9 MG/DL (8.5-10.1)
[2022-09-12] MEDS ORDERED: ONDANSETRON 4 MG/2 ML (SDV) Z0FRAN IVP ONE (09:00)
--- NOTE | 2022-09-12 09:00 | Diagnostic Imaging Report ---
PROCEDURE: CT head wo r/o stroke. TECHNIQUE: Multiple contiguous axial images were obtained through the brain without the use of intravenous contrast. Auto Exposure Controls were utilized during the CT exam to meet ALARA standards for radiation dose reduction. INDICATION: Neurologic deficit with right weakness and paresthesia COMPARISON: 06/04/2022 CT HEAD: CT images of the head were obtained. FINDINGS: Ventricles and sulci are within normal limits for size. There is no intracranial hemorrhage identified. There is no abnormal mass effect or shift of midline structures. IMPRESSION: Unremarkable CT of the head. Dictated by: Dictated on workstation # [id number]
[2022-09-12 09:01] LABS: TOTAL PROTEIN 6.5 GM/DL (6.4-8.2)
[2022-09-12 09:03] LABS: BILIRUBIN,TOTAL 0.4 MG/DL (0.1-1.0)
[2022-09-12 09:05] LABS: CREATININE SERUM 9.88 MG/DL (0.60-1.30)
[2022-09-12] MEDS: LORazepam 0.5 MG (ATIVAN) TABLET PO STA ×2 (09:54→09:56)
--- NOTE | 2022-09-12 10:35 | Diagnostic Imaging Report ---
PROCEDURE: MR imaging of the brain without contrast. TECHNIQUE: Multiplanar, multisequence MR imaging of the brain was performed without contrast. INDICATION: Left weakness. FINDINGS: The ventricles and sulci are within normal limits for size. Multiple punctate regions of T2 prolongation are noted within ramirez radiata and within the periventricular white matter of the left frontal lobe. In addition, there is a punctate region of restricted diffusion in the high right parietal white matter, compatible with micro-infarct. There is no abnormal mass effect or shift of the midline structures. No other restricted diffusion is seen to indicate other infarction. There is no MRI evidence of intracranial hemorrhage. Flow-voids are seen in the expected locations at [place]. IMPRESSION: Very mild cerebral white matter findings which may be chronic in nature. There is, however, evidence of punctate acute microinfarct in the high right parietal region which could potentially result in patient's symptoms of left weakness. Dictated by: Dictated on workstation # [id number]
--- NOTE | 2022-09-12 10:45 | Diagnostic Imaging Report ---
PROCEDURE: MR angiography of the brain without the use of contrast. TECHNIQUE: 3D ngfj-tc-eypmxh non contrast enhanced MR angiography of the head was performed. A source data was reformatted into rotating MIP projections. INDICATION: Left facial droop with right upper extremity numbness and weakness. FINDINGS: The visible distal internal carotid and vertebral arteries are unremarkable as is the basilar artery. The anterior, middle, and posterior cerebral arteries demonstrate a normal appearance without evidence of occlusion. There is asymmetric prominence of the right posterior communicating artery. No aneurysm or vascular malformation is seen. There is no evidence of stenosis. IMPRESSION: No evidence of great vessel abnormality in the head. Dictated by: Dictated on workstation # [id number]
[2022-09-12] MEDS ORDERED: ASPIRIN 81 MG CHEW (CHILDREN'S ASA) PO ONE (12:30)
--- NOTE | 2022-09-12 12:39 | Diagnostic Imaging Report ---
PROCEDURE: MR angiography neck without contrast. TECHNIQUE: MR angiography of the neck was performed without contrast using time of flight technique. 3D reformatted images were performed on a separate workstation and reviewed. FINDINGS: The examination is slightly limited secondary to patient motion and noncontrast technique. Antegrade flow within the right common carotid artery. No evidence of high-grade stenosis within the right internal carotid artery, though somewhat limited without intravenous contrast. Antegrade flow within the right vertebral artery. Antegrade flow within the left common carotid artery. No evidence of high-grade stenosis of the left internal carotid artery, though somewhat limited without intravenous contrast. Antegrade flow within the left vertebral artery. Partially imaged bilateral pleural effusions. IMPRESSION: 1. Slightly limited exam secondary to patient motion and noncontrast technique. 2. Antegrade flow within the bilateral carotid and vertebral arteries. No evidence for high-grade stenosis of the internal carotid arteries, though somewhat limited without intravenous contrast. Measurements of vascular lumen diameter is performed on MIP and source images and measured by NASCET ([place] symptomatic carotid endarterectomy trial) criteria. Dictated by: Dictated on workstation # [id number]
[2022-09-12 13:13] LABS: BILIRUBIN,URINE NEGATIVE (NEGATIVE); CLARITY,URINE CLEAR; COLOR,URINE YELLOW; GLUCOSE, URINE (UA) 1+ (NEGATIVE); KETONES,URINE NEGATIVE (NEGATIVE); LEUKOCYTE ESTERASE ,URINE NEGATIVE (NEGATIVE); NITRITE,URINE NEGATIVE (NEGATIVE); PROTEIN,URINE 3+ (NEGATIVE)
[2022-09-12 13:43] LABS: BACTERIA,URINE NEGATIVE /HPF
[2022-09-12 22:43] VITALS: BP 160/93
== END 2022-09-12 22:43 | disposition short-term general hospital (02) ==
LOC: EDUNIT# 08:09 → ER 08:12
DX: I63.9 Cerebral infarction, unspecified (principal); I12.0 Hypertensive chronic kidney disease with stage 5 chronic kidney disease or end stage renal disease; E10.22 Type 1 diabetes mellitus with diabetic chronic kidney disease; N18.6 End stage renal disease; Z99.2 Dependence on renal dialysis; Z96.41 Presence of insulin pump (external) (internal)
CPT/HCPCS: 36415; 70450; 70544; 70547; 70551; 71045; 80053; 81000; 82947; 84484; 85025; 85379; 85610; 85730; 93005; 93041

== ENCOUNTER 2022-09-19 02:00 | Outpatient (RCR) | payer MEDICARE, MEDICAID ==
[~2022-09-19 02:00] MED LIST changes: -LOSA100T57 PO; +LOSA100T58 PO
[2022-09-28] MEDS ORDERED: TORS100T4 PO (08:55)
[2022-09-28] MEDS ORDERED: CLOP75TA28 PO (08:55)
[2022-09-28] MEDS ORDERED: HYDR100T27 PO (08:55)
[2022-09-28] MEDS ORDERED: TORS10TA5 PO (08:55)
[2022-09-28] MEDS ORDERED: ATOR80TA76 PO (08:55)
[2022-09-28] MEDS ORDERED: PANT20TA18 PO (08:55)
[2022-10-05] MEDS ORDERED: ACHD5005 PO (12:27)
== END 2022-10-04 ==
LOC: ONC 02:00
PROVIDERS: ATTEND Internal Medicine Hematology & Oncology
DX: D65 Disseminated intravascular coagulation [defibrination syndrome] (principal); E11.9 Type 2 diabetes mellitus without complications; I10 Essential (primary) hypertension; Z86.73 Personal history of transient ischemic attack (TIA), and cerebral infarction without residual deficits
CPT/HCPCS: 81240; 85307; 85597; 85610; 85613; 85670; 85705; 85730; 86146; 86147

== ENCOUNTER 2022-09-28 08:05 | Outpatient (CLI) | payer MEDICARE, MEDICAID ==
[~2022-09-28] VITALS: Ht 175.3 cm; Wt 86.9 kg
[~2022-09-28 08:05] MED LIST changes: +LOSA100T57 PO; -LOSA100T58 PO
[2022-09-28] MEDS ORDERED: HYDR100T27 PO (08:55)
[2022-09-28] MEDS ORDERED: CLOP75TA28 PO (08:55)
[2022-09-28] MEDS ORDERED: ATOR80TA76 PO (08:55)
[2022-09-28] MEDS ORDERED: PANT20TA18 PO (08:55)
[2022-09-28] MEDS ORDERED: TORS10TA5 PO (08:55)
[2022-09-28] MEDS ORDERED: TORS100T4 PO (08:55)
== END 2022-09-28 09:26 ==
LOC: PREOP 08:05
PROVIDERS: ATTEND Surgery
DX: Z01.818 Encounter for other preprocedural examination (principal)

== ENCOUNTER → 2022-10-03 | Outpatient (CLI) | payer MEDICARE, MEDICAID ==
[~2022-10-03] MED LIST changes: +ATOR80TA76 PO; +CLOP75TA28 PO; +HYDR100T27 PO; +PANT20TA18 PO; +TORS100T4 PO; +TORS10TA5 PO
== END ==
LOC: CARD 12:36
PROVIDERS: ATTEND Pediatrics
DX: I08.1 Rheumatic disorders of both mitral and tricuspid valves (principal)
CPT/HCPCS: 93306

== ENCOUNTER 2022-10-05 09:04 | Day surgery (SDC) | payer MEDICARE, MEDICAID ==
[2022-10-05] VITALS (11 sets, daily range): BP systolic 126–162; BP diastolic 83–104
[~2022-10-05] VITALS: Ht 175.3 cm; Wt 86.9 kg
[2022-10-05] MEDS ORDERED: NS IV 1000 ML 1,000 ML IV SCH (09:15)
[2022-10-05] MEDS ORDERED: ceFAZolin INJECTION 2,000 MG in NS (IVPB) 50 ML IV ONE (09:15)
--- NOTE | 2022-10-05 09:15 | Progress Note-Pre Operative ---
Pre-Operative Progress Note Date H&P Reviewed: Oct 05, 2022 Time H&P Reviewed: 09:15 History & Physical: H&P Reviewed, Patient Examed, No changes noted Pre-Operative Diagnosis: end stage renal failure LOLLY LEDESMA DO Oct 05, 2022 09:15
[2022-10-05] MEDS ORDERED: NS IV 1000 ML 1,000 ML ONE (09:17)
[2022-10-05] MEDS ORDERED: BUP/EPI 0.5% 1:200,000 (SENSORCAINE) 30 ML VIAL ONE (10:42)
[2022-10-05] MEDS ORDERED: HEParin (CENTRAL IV FLUSH) 500 UNIT/5 ML SYR ONE (10:42)
[2022-10-05] MEDS ORDERED: BUP/EPI 0.5% 1:200,000 (SENSORCAINE) 30 ML VIAL INJ ONE (10:48)
[2022-10-05] MEDS ORDERED: HEParin (CENTRAL IV FLUSH) 500 UNIT/5 ML SYR IV ONE (10:49)
[2022-10-05] MEDS ORDERED: SEVOFLURANE (ULTANE) 15 ML INHAL SOLN ONE ×2 (11:04→12:24)
[2022-10-05] MEDS ORDERED: LIDOCAINE PF 2% 5 ML (XYLOCAINE) VIAL ONE (11:04)
[2022-10-05] MEDS ORDERED: proPOfol 200 MG/20 ML (DIPRIVAN) VIAL IV ONE (11:04)
[2022-10-05] MEDS ORDERED: fentaNYL INJ 100 MCG/2 ML AMP ONE (11:05)
[2022-10-05] MEDS ORDERED: MIDAZOLAM 2 MG/2 ML (VERSED) VIAL ONE (11:05)
[2022-10-05] MEDS ORDERED: ROCURONIUM 50 MG/5 ML (ZEMURON) VIAL IV ONE (11:05)
[2022-10-05] MEDS ORDERED: SUGAMMADEX 500 MG/5 ML VIAL (BRIDION) IV ONE (12:13)
[2022-10-05] MEDS ORDERED: ACHD5005 PO (12:27)
[2022-10-05] MEDS ORDERED: ONDANSETRON 4 MG/2 ML (SDV) Z0FRAN IVP PRN (12:30)
[2022-10-05] MEDS ORDERED: morphine INJ 10 MG/ML 1ML (SYR OR VIAL) IVP ONE (12:30)
--- NOTE | 2022-10-05 12:31 | Discharge Inst-Simple/Standard ---
Discharge Inst-Standard Discharge Medications New, Converted or Re-Newed RX: Transmitted to Pharmacy Patient Instructions/Follow Up Plan of Care/Instructions/FU: 2 weeks Mavis Activity as Tolerated: No Discharge Diet: Regular Diet Other Inst to Patient Follow up Appt: Make appointment for 2 week. Dialysis center tomorrow, they will start with half fills for peritoneal dialysis. Instructions: No lifting greater than 10 pounds. No strenuous activity. Continue sponge bath as instructed. Use incentive spirometer at home as directed. No Smoking Skin/Wound Care: You have special glue over your incision that will fall off on it's own. Keep dialysis catheter clean and dry. Symptoms to Report: Appetite Changes, Extremity Discoloration, Numbness/Tingling, Swelling Increased, Bleeding Excessive, Eyesight Changes, Pain Increased, Urine Color Change, Constipation(Persistent), Fever over 101 degree F, Pain/Pressure in ch est, Urinating Difficulty, Cough Up/Vomit Blood, Heart Beat Irreg/Pounding, Pain/Pressure in jaw, Vaginal Bleeding Increase, Cramps in feet or legs, Lightheadedness, Pain/Pressure in shoulder, Diarrhea(Persistent), Memory Changes Suddenly, Questions/Concerns, Weight gain consecutive days, Dizziness/Fainting, Nausea/Vomiting, Shortness of Breath, Weight gain over 2 pounds If questions or concerns contact your physician Or seek help at emergency department. LOLLY LEDESMA DO Oct 05, 2022 12:31
--- NOTE | 2022-10-05 12:32 | Progress Note-Post Operative ---
Post-Operative Progess Note Surgeon (s)/Premix Concrete Batcher (s) Surgeon LOLLY LEDESMA DO Premix Concrete Batcher: na Pre-Operative Diagnosis end stage renal failure Post-Operative Diagnosis same Procedure & Operative Findings Date of Procedure 10/05/22 Procedure Performed/Findings laparoscopic peritoneal dialysis catheter placement Anesthesia Type general Estimated Blood Loss Estimated blood loss (mL): minimal Specimens/Packing Specimens Removed na LOLLY LEDESMA DO Oct 05, 2022 12:32
--- NOTE | 2022-10-05 15:23 | Anesthesia-General Post-Op ---
General Patient Condition Mental Status/LOC: Same as Preop Cardiovascular: Satisfactory Nausea/Vomiting: Absent Respiratory: Satisfactory Pain: Controlled Complications: Absent Post Op Complications Complications None Follow Up Care/Instructions Patient Instructions None needed. Anesthesia/Patient Condition Patient Condition Patient is doing well, no complaints, stable vital signs, no apparent adverse anesthesia problems. No complications reported per nursing. JOSELIN BRIGGS CRNA Oct 05, 2022 15:23
--- NOTE | 2022-10-05 22:05 | OPERATIVE REPORT ---
DATE OF SERVICE: 10/05/2022 PREOPERATIVE DIAGNOSIS: End-stage renal failure, on dialysis. POSTOPERATIVE DIAGNOSIS: End-stage renal failure, on dialysis. PROCEDURE: Laparoscopic peritoneal dialysis catheter placement. SURGEON: Lolly Gamble DO ANESTHESIA: General. ESTIMATED BLOOD LOSS: Minimal. COMPLICATIONS: None. INDICATIONS: The patient is a 37-year-old male with end-stage renal disease requiring dialysis. He wants to do peritoneal dialysis. He understands risks and benefits of procedure and wishes to proceed. Consent was signed in chart. DESCRIPTION OF PROCEDURE: The patient was taken to the operating suite. He was prepped and draped in sterile fashion. Timeout was performed. Local anesthetic was infiltrated just above the umbilicus. An 11 blade scalpel was used to make a small skin incision. Cautery was then used to dissect down through subcutaneous tissues to the fascia, which was then scored and opened and a 0 Vicryl was placed in [id number] fashion for closure of the defect. A scott trocar was inserted. Pneumoperitoneum was achieved. The abdomen was inspected and a 5 mm trocar was placed in the right upper quadrant. At this point, an 8 bariatric robotic trocar was then placed after the scott trocar was removed and the fascial defect was closed. The robotic trocar was then placed [ ] and brought out through the left of the rectus muscle. A 62 cm peritoneal dialysis catheter was then inserted through the trocar and then the trocar was removed. The internal cuff was brought out just where it popped back into the muscle in the preperitoneal space. The catheter was then tunneled to the left side of the abdomen to where the second cuff was in the subcutaneous tissue as well. A drain stitch was then placed as well to secure the catheter. The abdomen then had a normal saline infiltrated through the peritoneal catheter without difficult 500 mL was placed on the pelvis, which was able to be flushed and withdrawn without difficulty. We lifted into [ ] the catheter. The abdomen was then desufflated. We will trocars were removed and the skin was then closed using 4-0 Monocryl in subcuticular fashion. The abdomen was washed and dried and skin Affix was placed over the incisions. The catheter was secured with a sterile bandage in the usual fashion. The patient tolerated the procedure well without complications, taken to recovery room in stable condition. Deo ID: [id number] DocumentID: [id number] Dictated Date: 10/05/2022 14:02:47 Wood Inspector Date: 10/05/2022 22:03:00 Dictated By: LOLLY GAMBLE DO
== END 2022-10-05 15:10 | disposition home or self-care (01) ==
LOC: SDC 09:04
PROVIDERS: ATTEND Surgery
DX: N18.6 End stage renal disease (principal); N17.9 Acute kidney failure, unspecified; Z79.02 Long term (current) use of antithrombotics/antiplatelets
CPT/HCPCS: 49324; 84132; 87081; C1752; 36415

== ENCOUNTER 2022-10-11 11:19 | Outpatient (RCR) | payer MEDICARE, MEDICAID ==
[~2022-10-11 11:19] MED LIST changes: -LOSA100T57 PO; +LOSA100T58 PO
[2022-11-02] MEDS ORDERED: ASPI-999 PO (09:08)
== END 2022-11-03 ==
LOC: ONC 11:19
PROVIDERS: ATTEND Internal Medicine Hematology & Oncology
DX: I12.0 Hypertensive chronic kidney disease with stage 5 chronic kidney disease or end stage renal disease (principal); E11.22 Type 2 diabetes mellitus with diabetic chronic kidney disease; N18.6 End stage renal disease; Z99.2 Dependence on renal dialysis

== ENCOUNTER 2022-11-02 05:31 | Outpatient (CLI) | payer MEDICARE, MEDICAID ==
[~2022-11-02] VITALS: Ht 175.2 cm; Wt 79.8 kg
[2022-11-02] MEDS ORDERED: ASPI-999 PO (09:08)
== END 2022-11-02 09:28 | disposition home or self-care (01) ==
LOC: PREOP 05:31
PROVIDERS: ATTEND Surgery
DX: Z01.818 Encounter for other preprocedural examination (principal)

== ENCOUNTER 2022-11-09 07:04 | Day surgery (SDC) | payer MEDICARE, MEDICAID ==
[~2022-11-09] VITALS: Ht 175.2 cm; Wt 79.8 kg
[~2022-11-09 07:04] MED LIST changes: +ASPI-999 PO
[2022-11-09] MEDS ORDERED: meTOprolol 5 MG/5 ML (LOPRESSOR) VIAL ONE (07:38)
[2022-11-09] MEDS ORDERED: NS IV 500 ML 500 ML IV SCH (07:45)
[2022-11-09] MEDS ORDERED: LACTATED RINGERS 1,000 ML IV PRN (07:45)
[2022-11-09] MEDS ORDERED: meTOprolol 5 MG/5 ML (LOPRESSOR) VIAL IV ONE (07:45)
[2022-11-09 07:52] VITALS: BP 188/104
--- NOTE | 2022-11-09 08:04 | Progress Note-Pre Operative ---
Pre-Operative Progress Note Date H&P Reviewed: Nov 09, 2022 Time H&P Reviewed: 08:04 History & Physical: H&P Reviewed, Patient Examed, No changes noted Changes from last HP Removal of right hemodialysis catheter. Pre-Operative Diagnosis: ESRD, LOLLY LEDESMA DO Nov 09, 2022 08:04
[2022-11-09] MEDS ORDERED: LIDOCAINE/EPI 1%-1:100,000 (XYLOCAINE) 20ML ONE (08:22)
[2022-11-09] MEDS ORDERED: NS (IVPB) 50 ML ONE (08:32)
[2022-11-09] MEDS ORDERED: ceFAZolin INJECTION 2,000 MG ONE (08:32)
[2022-11-09] MEDS ORDERED: ceFAZolin INJECTION 2,000 MG in NS (IVPB) 50 ML IV ONE (08:45)
[2022-11-09] MEDS ORDERED: PROPOFOL INJECTION 50 ML IV ONE (08:51)
--- NOTE | 2022-11-09 09:52 | Progress Note-Post Operative ---
Post-Operative Progess Note Surgeon (s)/Data Integrity Specialist (s) Surgeon LOLLY LEDESMA DO Data Integrity Specialist: NA Pre-Operative Diagnosis ESRD, Post-Operative Diagnosis SAME Procedure & Operative Findings Date of Procedure 11/09/22 Procedure Performed/Findings Extraction (removal) of right hemodialysis catheter. Anesthesia Type mac c local Estimated Blood Loss Estimated blood loss (mL): minimal Specimens/Packing Specimens Removed na LOLLY LEDESMA DO Nov 09, 2022 09:52
--- NOTE | 2022-11-09 09:59 | Discharge Inst-Simple/Standard ---
Discharge Inst-Standard Patient Instructions/Follow Up Plan of Care/Instructions/FU: 2 weeks Mavis Activity as Tolerated: No Discharge Diet: Regular Diet Other Inst to Patient Follow up Appt: Make appointment for 2 week. Instructions: No lifting greater than 10 pounds. No strenuous activity. May shower in 24 hours, no tub bath or soaking. Use incentive spirometer at home as directed. No Smoking Skin/Wound Care: You have a bandage over the area, change it daily and as needed. Symptoms to Report: Appetite Changes, Extremity Discoloration, Numbness/Tingling, Swelling In creased, Bleeding Excessive, Eyesight Changes, Pain Increased, Urine Color Change, Constipation(Persistent), Fever over 101 degree F, Pain/Pressure in chest, Urinating Difficulty, Cough Up/Vomit Blood, Heart Beat Irreg/Pounding, Pain/Pressure in jaw, Vaginal Bleeding Increase, Cramps in feet or legs, Lightheadedness, Pain/Pressure in shoulder, Diarrhea(Persistent), Memory Changes Suddenly, Questions/Concerns, Weight gain consecutive days, Dizziness/Fainting, Nausea/Vomiting, Shortness of Breath, Weight gain over 2 pounds If questions or concerns contact your physician Or seek help at emergency department. LOLLY LEDESMA DO Nov 09, 2022 09:59
[2022-11-09 10:06] VITALS: BP 147/82
[2022-11-09 10:10] VITALS: BP 150/80
[2022-11-09 10:20] VITALS: BP 153/85
--- NOTE | 2022-11-09 10:24 | Anesthesia-General Post-Op ---
MAC Patient Condition Mental Status/LOC: Same as Preop Cardiovascular: Satisfactory Nausea/Vomiting: Absent Respiratory: Satisfactory Pain: Controlled Complications: Absent Post Op Complications Complications None Follow Up Care/Instructions Patient Instructions None needed. Anesthesiology Discharge Order Discharge Order Patient is doing well, no complaints, stable vital signs, no apparent adverse anesthesia problems. No complications reported per nursing. OSCAR PHILLIPS CRNA Nov 09, 2022 10:24
[2022-11-09 10:30] VITALS: BP_SYST 148; BP_SYST 156; BP_DIAS 82; BP_DIAS 84
[2022-11-09 11:00] VITALS: BP 180/86
--- NOTE | 2022-11-09 11:53 | OPERATIVE REPORT ---
DATE OF SERVICE: 11/09/2022 PREOPERATIVE DIAGNOSIS: End-stage renal disease. POSTOPERATIVE DIAGNOSIS: End-stage renal disease. PROCEDURE: Extraction (removal) of right hemodialysis catheter. SURGEON: Lolly Gamble DO ANESTHESIA: MAC with local. ESTIMATED BLOOD LOSS: Minimal. COMPLICATIONS: None. INDICATIONS: The patient is a 37-year-old male with end-stage renal disease. He has a right hemodialysis catheter that has been placed. He has been okay to have it removed for he is now doing peritoneal dialysis. He understands all risks and benefits and wishes to proceed. Consent was signed in chart. DESCRIPTION OF PROCEDURE: The patient was taken to the operating suite where he was prepped and draped in sterile fashion. Timeout was performed. Local anesthetic was infiltrated. After timeout was performed, catheter was grasped and elevated. A hemostat was used to dissect around the catheter to the cuff, which all the adhesions were broken off of the cuff and the catheter was then able to be removed in its entirety. Pressure was held for 10 minutes for hemostasis. Once hemostasis was achieved, the area was washed and dried and sterile bandages were applied. The patient tolerated the procedure well without complications, taken to recovery room in stable condition. Job ID: [id number] DocumentID: [id number] Dictated Date: 11/09/2022 10:02:46 Penciller Date: 11/09/2022 11:51:00 Dictated By: LOLLY GAMBLE DO
== END 2022-11-09 12:30 | disposition home or self-care (01) ==
LOC: SDC 07:04
PROVIDERS: ATTEND Surgery
DX: Z45.2 Encounter for adjustment and management of vascular access device (principal); N18.6 End stage renal disease; F17.220 Nicotine dependence, chewing tobacco, uncomplicated; Z99.2 Dependence on renal dialysis
CPT/HCPCS: 87081